=== PATIENT | male | born 1950 | race Caucasian/White ===

== ENCOUNTER 2017-09-30 17:06 | Inpatient (IN) | payer MEDICARE, BC ==
[2017-09-30 18:44] LABS: ADD MAN DIFF? NO
[2017-09-30 18:47] LABS: ABNORMAL IP MESSAGE 1; BASOPHILS % 0.3 % (0.0-2.0); EOSINOPHILS # 0.5 10^3/ul (0.0-0.5); LYMPHOCYTES # 2.3 10^3/ul (0.8-2.9); LYMPHOCYTES % 32.9 % (15.0-51.0); MEAN PLATELET VOLUME 10.6 fl (7.4-10.4); MONOCYTE # 0.6 10^3/ul (0.3-0.9); MONOCYTES % 8.4 % (0.0-11.0); NEUTROPHIL # 3.6 10^3/ul (1.6-7.5); NEUTROPHILS % 51.1 % (39.0-77.0); PLATELET COUNT 311 10^3/UL (140-415); POSITIVE DIFF @See below
[2017-09-30 18:47] LABS: WHITE BLOOD COUNT 7.1 10^3/ul (4.8-10.8)
[2017-09-30 19:11] LABS: INR 1.41; PROTIME 17.5 Sec (11.9-14.9); PT RATIO 1.4
[2017-09-30 19:12] LABS: PARTIAL THROMBOPLASTIN TIME 34.8 Sec (25.0-35.0)
[2017-09-30 19:14] LABS: ALANINE AMINOTRANSFERASE 35 IU/L (13-69); ALBUMIN 3.5 g/dl (3.3-4.9); ALBUMIN/GLOBULIN RATIO 1.09; ALKALINE PHOSPHATASE 53 IU/L (42-121); ANION GAP 15 (8-16); ASPARTATE AMINO TRANSFERASE 25 IU/L (15-46); BILIRUBIN,INDIRECT 0.6 mg/dl (0-1.1); BILIRUBIN,TOTAL 0.6 mg/dl (0.2-1.3); BLOOD UREA NITROGEN 56 mg/dl (7-20); CALCIUM 9.3 mg/dl (8.4-10.2); CARBON DIOXIDE 29 mmol/L (21-31); CHLORIDE 98 mmol/L (97-110); CREATININE 5.99 mg/dl (0.61-1.24); GLUCOSE 89 mg/dl (70-220); POTASSIUM 4.8 mmol/L (3.5-5.1); SODIUM 137 mmol/L (135-144); TOTAL PROTEIN 6.7 g/dl (6.1-8.1)
[2017-09-30] MEDS ORDERED: ACETAMINOPHEN 325 MG TAB PO (20:00)
[2017-09-30] MEDS ORDERED: ONDANSETRON 4 MG INJ IV (20:00)
[2017-09-30 20:15] LABS: HEMATOCRIT 22.2 % (42.0-52.0); HEMOGLOBIN 7.2 g/dl (14.0-18.0); MEAN CORPUSCULAR VOLUME 97.4 fl (82.0-101.0); RED BLOOD COUNT 2.28 10^6/ul (4.70-6.10)
[2017-09-30 20:16] LABS: MEAN CORPUSCULAR HEMOGLOBIN 31.6 pg (29.0-33.0); MEAN CORPUSCULAR HGB CONC 32.4 g/dl (32.0-37.0); RED CELL DISTRIBUTION WIDTH 16.8 % (11.5-14.5)
[2017-09-30] MEDS ORDERED: ONDANSETRON 4 MG TAB PO (21:30)
[2017-09-30] MEDS ORDERED: NACL 0.9% 3 ML SYG IV (21:30)
[2017-09-30] MEDS ORDERED: GLUCAGON 1 MG INJ IM (22:00)
[2017-09-30] MEDS ORDERED: GLUCOSE GEL 15 GRAM TUBE BUCCAL (22:00)
[2017-09-30] MEDS ORDERED: GLUCOSE GEL 15 GRAM TUBE PO ×2 (22:00)
[2017-09-30] MEDS ORDERED: DEXTROSE 50% 50 ML SYRINGE IV ×2 (22:00)
[2017-10-01] MEDS: ALBUTEROL/IPRATROPIUM (NEB) 3 ML AMP HHN ×3 (01:00→09:00)
[2017-10-01] MEDS: ACCU-CHEK XX (02:14)
[2017-10-01] MEDS: ZOLPIDEM 5 MG TAB PO (02:16)
[2017-10-01 02:36] LABS: ADD MAN DIFF? NO
[2017-10-01 03:16] LABS: ALANINE AMINOTRANSFERASE 40 IU/L (13-69); ALBUMIN 3.7 g/dl (3.3-4.9); ALBUMIN/GLOBULIN RATIO 1.27; ALKALINE PHOSPHATASE 54 IU/L (42-121); ANION GAP 14 (8-16); ASPARTATE AMINO TRANSFERASE 23 IU/L (15-46); BILIRUBIN,INDIRECT 0.3 mg/dl (0-1.1); BILIRUBIN,TOTAL 0.3 mg/dl (0.2-1.3); BLOOD UREA NITROGEN 55 mg/dl (7-20); CALCIUM 8.9 mg/dl (8.4-10.2); CARBON DIOXIDE 28 mmol/L (21-31); CHLORIDE 102 mmol/L (97-110); CREATININE 5.69 mg/dl (0.61-1.24); GLUCOSE 110 mg/dl (70-220); POTASSIUM 4.2 mmol/L (3.5-5.1); SODIUM 140 mmol/L (135-144); TOTAL PROTEIN 6.6 g/dl (6.1-8.1)
[2017-10-01 03:27] LABS: TROPONIN-I 0.035 ng/ml (0.00-0.12)
[2017-10-01] MEDS: ASPIRIN 81 MG TAB PO (08:35)
[2017-10-01] MEDS: FERROUS SULFATE (EC) 325 MG TAB PO (08:35)
[2017-10-01] MEDS: FOLIC ACID 1 MG TAB PO (08:35)
[2017-10-01] MEDS: SALMETEROL/FLUTICASONE 250/50 INHA INH ×2 (08:36→21:26)
[2017-10-01] MEDS: TIOTROPIUM 18 MCG CAPSULE INHA DEV INH (08:36)
[2017-10-01] MEDS: INSULIN ASPART [NOVOLOG] 3 ML PEN SC ×7 (08:37→21:40)
[2017-10-01] MEDS: INSULIN GLARGINE [LANtus] 3 ML PEN SC ×2 (08:38→21:45)
[2017-10-01] MEDS ORDERED: PIPER-TAZO 3.375 GM IV (PMX) 50 ML IVPB (09:00)
[2017-10-01] MEDS ORDERED: FENTAnyl 50 MCG/ML VIAL (09:16)
[2017-10-01] MEDS ORDERED: MIDAZOLAM 1 MG/ML 2 ML INJ (09:16)
[2017-10-01] MEDS ORDERED: LIDOCAINE 1% (MDV) 20 ML INJ (09:16)
[2017-10-01] MEDS ORDERED: IODIXANOL LOCM 100 ML BTL (09:16)
[2017-10-01 09:27] LABS: WHITE BLOOD COUNT 7.6 10^3/ul (4.8-10.8)
[2017-10-01 09:27] LABS: HEMATOCRIT 23.2 % (42.0-52.0); MEAN CORPUSCULAR HGB CONC 30.6 g/dl (32.0-37.0); MEAN CORPUSCULAR VOLUME 104.5 fl (82.0-101.0); RED BLOOD COUNT 2.22 10^6/ul (4.70-6.10); RED CELL DISTRIBUTION WIDTH 17.5 % (11.5-14.5)
[2017-10-01 09:28] LABS: BASOPHILS % 0.7 % (0.0-2.0); EOSINOPHILS % 6.9 % (0.0-7.0); LYMPHOCYTES # 2.5 10^3/ul (0.8-2.9); LYMPHOCYTES % 32.6 % (15.0-51.0); MEAN PLATELET VOLUME 10.9 fl (7.4-10.4); MONOCYTE # 0.6 10^3/ul (0.3-0.9); MONOCYTES % 8.2 % (0.0-11.0); NEUTROPHIL # 3.9 10^3/ul (1.6-7.5); NEUTROPHILS % 51.5 % (39.0-77.0); PLATELET COUNT 310 10^3/UL (140-440)
[2017-10-01 09:29] LABS: BASOPHIL # 0.1 10^3/ul (0.0-0.1); EOSINOPHILS # 0.5 10^3/ul (0.0-0.5); HEMOGLOBIN 7.1 g/dl (14.0-18.0)
[2017-10-01] MEDS ORDERED: IODIXANOL LOCM 50 ML BTL (09:56)
[2017-10-01 12:55] LABS: TROPONIN-I 0.056 ng/ml (0.00-0.12)
[2017-10-01] MEDS: HEPARIN 1000 UNITS/ML 10 ML INJ CATHETER (13:09)
[2017-10-01] MEDS: PIPER-TAZO 2.25 GM (PMX) 50 ML IVPB ×2 (15:23→21:23)
[2017-10-01] MEDS: EPOETIN 3000 UNITS/1 ML INJ (ESRD) SC (17:23)
[2017-10-01] MEDS: ATORVASTATIN 80 MG TAB PO (21:26)
[2017-10-01] MEDS: AMLODIPINE 5 MG TAB PO (21:27)
[2017-10-01] MEDS: ACETAMINOPHEN 325 MG TAB PO (21:48)
[2017-10-02] MEDS: PIPER-TAZO 2.25 GM (PMX) 50 ML IVPB ×2 (00:09→05:44)
[2017-10-02 02:19] LABS: ANION GAP 14 (8-16); BLOOD UREA NITROGEN 35 mg/dl (7-20); CALCIUM 8.8 mg/dl (8.4-10.2); CARBON DIOXIDE 29 mmol/L (21-31); CHLORIDE 100 mmol/L (97-110); CREATININE 3.87 mg/dl (0.61-1.24); GLUCOSE 117 mg/dl (70-220); MAGNESIUM 1.9 mg/dl (1.7-2.5); POTASSIUM 4.5 mmol/L (3.5-5.1); SODIUM 138 mmol/L (135-144)
[2017-10-02] MEDS: ACCU-CHEK XX (02:51)
[2017-10-02] MEDS: MAGNESIUM SULFATE 1 GM/D5W 100 ML IVPB (03:57)
[2017-10-02 07:28] LABS: ADD MAN DIFF? NO
[2017-10-02 07:50] LABS: ALANINE AMINOTRANSFERASE 27 IU/L (13-69); ALBUMIN 3.1 g/dl (3.3-4.9); ALKALINE PHOSPHATASE 45 IU/L (42-121); ANION GAP 15 (8-16); ASPARTATE AMINO TRANSFERASE 24 IU/L (15-46); BILIRUBIN,INDIRECT 0.5 mg/dl (0-1.1); BILIRUBIN,TOTAL 0.5 mg/dl (0.2-1.3); BLOOD UREA NITROGEN 33 mg/dl (7-20); CALCIUM 9.1 mg/dl (8.4-10.2); CARBON DIOXIDE 28 mmol/L (21-31); CHLORIDE 102 mmol/L (97-110); GLUCOSE 68 mg/dl (70-220); SODIUM 141 mmol/L (135-144); TOTAL PROTEIN 6.2 g/dl (6.1-8.1)
[2017-10-02] MEDS: INSULIN ASPART [NOVOLOG] 3 ML PEN SC ×8 (07:55→21:26)
[2017-10-02 08:13] LABS: MAGNESIUM 2.2 mg/dl (1.7-2.5)
[2017-10-02 08:13] LABS: PHOSPHORUS 4.7 mg/dl (2.5-4.9)
[2017-10-02] MEDS: ASPIRIN 81 MG TAB PO (08:47)
[2017-10-02] MEDS: EZETIMIBE 10 MG TAB PO (08:47)
[2017-10-02] MEDS: LINAGLIPTIN 5 MG TABLET PO (08:47)
[2017-10-02] MEDS: AMLODIPINE 5 MG TAB PO ×2 (08:47→21:13)
[2017-10-02] MEDS: FOLIC ACID 1 MG TAB PO (08:47)
[2017-10-02] MEDS: FERROUS SULFATE (EC) 325 MG TAB PO (08:47)
[2017-10-02] MEDS: TIOTROPIUM 18 MCG CAPSULE INHA DEV INH (08:47)
[2017-10-02] MEDS: SALMETEROL/FLUTICASONE 250/50 INHA INH ×2 (08:47→21:13)
[2017-10-02] MEDS: INSULIN GLARGINE [LANtus] 3 ML PEN SC ×2 (08:52→21:26)
[2017-10-02 09:00] LABS: ADD MAN DIFF? NO
[2017-10-02 09:34] LABS: LACTATE DEHYDROGENASE 596 IU/L (313-618)
[2017-10-02 09:39] LABS: BASOPHIL # 0.1 10^3/ul (0.0-0.1); BASOPHILS % 0.9 % (0.0-2.0); EOSINOPHILS # 0.5 10^3/ul (0.0-0.5); EOSINOPHILS % 6.5 % (0.0-7.0); HEMATOCRIT 23.3 % (42.0-52.0); LYMPHOCYTES # 1.7 10^3/ul (0.8-2.9); LYMPHOCYTES % 24.2 % (15.0-51.0); MEAN CORPUSCULAR HEMOGLOBIN 31.8 pg (29.0-33.0); MEAN CORPUSCULAR HGB CONC 32.6 g/dl (32.0-37.0); MEAN CORPUSCULAR VOLUME 97.5 fl (82.0-101.0); MEAN PLATELET VOLUME 11.6 fl (7.4-10.4); MONOCYTE # 0.7 10^3/ul (0.3-0.9); MONOCYTES % 10.4 % (0.0-11.0); NEUTROPHILS % 57.3 % (39.0-77.0); NUCLEATED RED BLOOD CELLS% 0.6 /100WBC (0.0-0.0); RED BLOOD COUNT 2.39 10^6/ul (4.70-6.10); RED CELL DISTRIBUTION WIDTH 16.4 % (11.5-14.5)
[2017-10-02 09:47] LABS: HEMOGLOBIN 7.6 g/dl (14.0-18.0); PLATELET COUNT 309 10^3/UL (140-415)
[2017-10-02 12:20] LABS: ABNORMAL IP MESSAGE 1; BASOPHILS % 0.6 % (0.0-2.0); EOSINOPHILS # 0.4 10^3/ul (0.0-0.5); EOSINOPHILS % 6.5 % (0.0-7.0); HEMATOCRIT 25.5 % (42.0-52.0); LYMPHOCYTES # 1.4 10^3/ul (0.8-2.9); LYMPHOCYTES % 21.6 % (15.0-51.0); MEAN CORPUSCULAR HEMOGLOBIN 31.7 pg (29.0-33.0); MEAN CORPUSCULAR HGB CONC 32.5 g/dl (32.0-37.0); MEAN CORPUSCULAR VOLUME 97.3 fl (82.0-101.0); MEAN PLATELET VOLUME 11.9 fl (7.4-10.4); MONOCYTE # 0.5 10^3/ul (0.3-0.9); MONOCYTES % 7.2 % (0.0-11.0); NEUTROPHIL # 4.2 10^3/ul (1.6-7.5); NEUTROPHILS % 63.6 % (39.0-77.0); NUCLEATED RED BLOOD CELLS # 0.1 10^3/ul (0.0-0.0); NUCLEATED RED BLOOD CELLS% 1.1 /100WBC (0.0-0.0); POSITIVE DIFF @See below; RED BLOOD COUNT 2.62 10^6/ul (4.70-6.10); RED CELL DISTRIBUTION WIDTH 16.4 % (11.5-14.5); RETICULOCYTE RBC 2.62
[2017-10-02 12:22] LABS: WHITE BLOOD COUNT 5.3 10^3/ul (4.8-10.8)
[2017-10-02 12:22] LABS: HEMOGLOBIN 8.3 g/dl (14.0-18.0); PLATELET COUNT 314 10^3/UL (140-415)
[2017-10-02 14:06] LABS: RETICULOCYTE COUNT # 0.027 X10^6 (0.020-0.110); RETICULOCYTE COUNT % 5.7 % (0.5-1.5)
[2017-10-02] MEDS: PANTOPRAZOLE (EC) 40 MG TAB PO (17:24)
[2017-10-02] MEDS: ATORVASTATIN 80 MG TAB PO (21:13)
[2017-10-03] MEDS: ZOLPIDEM 5 MG TAB PO (00:54)
[2017-10-03] MEDS: ACCU-CHEK XX (01:52)
[2017-10-03] MEDS: PANTOPRAZOLE (EC) 40 MG TAB PO (05:36)
[2017-10-03 07:05] LABS: ADD MAN DIFF? NO
[2017-10-03 07:29] LABS: MAGNESIUM 1.9 mg/dl (1.7-2.5)
[2017-10-03 07:30] LABS: ANION GAP 16 (8-16); BLOOD UREA NITROGEN 26 mg/dl (7-20); CALCIUM 9.1 mg/dl (8.4-10.2); CARBON DIOXIDE 29 mmol/L (21-31); CHLORIDE 100 mmol/L (97-110); GLUCOSE 113 mg/dl (70-220); POTASSIUM 4.1 mmol/L (3.5-5.1); SODIUM 141 mmol/L (135-144)
[2017-10-03] MEDS: INSULIN ASPART [NOVOLOG] 3 ML PEN SC ×4 (07:55→13:09)
[2017-10-03 08:15] LABS: BASOPHILS % 0.6 % (0.0-2.0); EOSINOPHILS # 0.4 10^3/ul (0.0-0.5); EOSINOPHILS % 5.4 % (0.0-7.0); HEMATOCRIT 25.2 % (42.0-52.0); LYMPHOCYTES # 1.7 10^3/ul (0.8-2.9); LYMPHOCYTES % 25.4 % (15.0-51.0); MEAN CORPUSCULAR HEMOGLOBIN 31.6 pg (29.0-33.0); MEAN CORPUSCULAR HGB CONC 32.9 g/dl (32.0-37.0); MEAN CORPUSCULAR VOLUME 95.8 fl (82.0-101.0); MEAN PLATELET VOLUME 11.9 fl (7.4-10.4); MONOCYTE # 0.7 10^3/ul (0.3-0.9); MONOCYTES % 10.8 % (0.0-11.0); NEUTROPHIL # 3.9 10^3/ul (1.6-7.5); NEUTROPHILS % 57.2 % (39.0-77.0); NUCLEATED RED BLOOD CELLS% 0.6 /100WBC (0.0-0.0); RED BLOOD COUNT 2.63 10^6/ul (4.70-6.10); RED CELL DISTRIBUTION WIDTH 15.8 % (11.5-14.5)
[2017-10-03 08:23] LABS: WHITE BLOOD COUNT 6.4 10^3/ul (4.8-10.8)
[2017-10-03 08:23] LABS: PLATELET COUNT 304 10^3/UL (140-415)
[2017-10-03 08:24] LABS: HEMOGLOBIN 8.3 g/dl (14.0-18.0)
[2017-10-03] MEDS: TIOTROPIUM 18 MCG CAPSULE INHA DEV INH (08:39)
[2017-10-03] MEDS: ASPIRIN 81 MG TAB PO (08:40)
[2017-10-03] MEDS: FOLIC ACID 1 MG TAB PO (08:40)
[2017-10-03] MEDS: LINAGLIPTIN 5 MG TABLET PO (08:40)
[2017-10-03] MEDS: EZETIMIBE 10 MG TAB PO (08:40)
[2017-10-03] MEDS: SALMETEROL/FLUTICASONE 250/50 INHA INH (08:40)
[2017-10-03] MEDS: FERROUS SULFATE (EC) 325 MG TAB PO (08:40)
[2017-10-03] MEDS: AMLODIPINE 5 MG TAB PO (08:44)
[2017-10-03] MEDS: INSULIN GLARGINE [LANtus] 3 ML PEN SC (08:50)
[2017-10-03 15:21] LABS: HAPTOGLOBIN 149 mg/dL (43-212)
[2017-10-06] MEDS ORDERED: ERGOCALCIFEROL 50,000 UNIT CAP PO (09:00)
== END 2017-10-03 13:37 | disposition home or self-care (01) | DRG 252 ==
LOC: TEL 19:58 → E/R 17:06
PROC: 02PY33Z Removal of Infusion Device from Great Vessel, Percutaneous Approach (ICD-10-PCS; principal; 2017-10-01 09:20)
PROC: 05793ZZ Dilation of Right Brachial Vein, Percutaneous Approach (ICD-10-PCS; 2017-10-01 09:20)
PROC: 057D3ZZ Dilation of Right Cephalic Vein, Percutaneous Approach (ICD-10-PCS; 2017-10-01 09:20)
PROC: 057M3ZZ Dilation of Right Internal Jugular Vein, Percutaneous Approach (ICD-10-PCS; 2017-10-01 09:20)
PROC: 05753ZZ Dilation of Right Subclavian Vein, Percutaneous Approach (ICD-10-PCS; 2017-10-01 09:20)
PROC: 027V3ZZ Dilation of Superior Vena Cava, Percutaneous Approach (ICD-10-PCS; 2017-10-01 09:20)
PROC: 02HV33Z Insertion of Infusion Device into Superior Vena Cava, Percutaneous Approach (ICD-10-PCS; 2017-10-01 09:20)
PROC: B518YZA Fluoroscopy of Superior Vena Cava using Other Contrast, Guidance (ICD-10-PCS; 2017-10-01 09:20)
PROC: 5A1D70Z Performance of Urinary Filtration, Intermittent, Less than 6 Hours Per Day (ICD-10-PCS; 2017-10-01 09:20)
PROC: 5A1D70Z Performance of Urinary Filtration, Intermittent, Less than 6 Hours Per Day (ICD-10-PCS; 2017-10-01 09:20)
DX: T82.868A Thrombosis due to vascular prosthetic devices, implants and grafts, initial encounter (principal); N18.6 End stage renal disease; N17.9 Acute kidney failure, unspecified; I50.33 Acute on chronic diastolic (congestive) heart failure; I44.1 Atrioventricular block, second degree; E11.22 Type 2 diabetes mellitus with diabetic chronic kidney disease; D59.1 Other autoimmune hemolytic anemias; I87.1 Compression of vein; I13.2 Hypertensive heart and chronic kidney disease with heart failure and with stage 5 chronic kidney disease, or end stage renal disease; I82.532 Chronic embolism and thrombosis of left popliteal vein; R00.1 Bradycardia, unspecified; E87.70 Fluid overload, unspecified; E78.5 Hyperlipidemia, unspecified; I27.20 Pulmonary hypertension, unspecified; I25.10 Atherosclerotic heart disease of native coronary artery without angina pectoris; J44.9 Chronic obstructive pulmonary disease, unspecified; Z95.5 Presence of coronary angioplasty implant and graft; Z99.2 Dependence on renal dialysis; Z79.4 Long term (current) use of insulin; Z79.82 Long term (current) use of aspirin
CPT/HCPCS: 37248; 37249; 71010; 71250; 80048; 80053; 82962; 83010; 83615; 83735; 84100; 84443; 84484; 85025; 85045; 85610; 85730; 86157; 86850; 86870; 86900; 86901; 87081; 90935; 93005; 93880; 99285-25; G0378

== ENCOUNTER 2017-11-11 09:27 | Day surgery (SDC) | payer MEDICARE, BC ==
[2017-11-11 10:43] LABS: POTASSIUM 5.2 mmol/L (3.5-5.1)
[2017-11-11] MEDS ORDERED: ROPIVACAINE 0.5 % 30 ML VIAL (10:47)
[2017-11-11] MEDS ORDERED: MIDAZOLAM 1 MG/ML 2 ML INJ (11:05)
[2017-11-11] MEDS ORDERED: METOCLOPRAMIDE 10 MG INJ IV (12:00)
[2017-11-11] MEDS ORDERED: MEPERIDINE 25 MG INJ IV (12:00)
[2017-11-11] MEDS ORDERED: DIPHENHYDRAMINE 50 MG INJ IV (12:00)
[2017-11-11] MEDS ORDERED: FENTAnyl 50 MCG/ML VIAL IV (12:00)
[2017-11-11] MEDS ORDERED: HYDROmorphONE (0.2 MG/ML) 10ML SYG IV (12:00)
[2017-11-11] MEDS ORDERED: LABETALOL HCL 20MG INJ IV (12:00)
[2017-11-11] MEDS ORDERED: ONDANSETRON 4 MG INJ IV (12:00)
[2017-11-11] MEDS: HEPARIN 1000 UNITS/ML 10 ML INJ (12:44)
[2017-11-11] MEDS: THROMBIN 5000 UNIT VIAL (12:44)
[2017-11-11] MEDS: LIDOCAINE 1% (MPF) 30 ML INJ (12:44)
[2017-11-11] MEDS: GELATIN SIZE 100 SPONGE (12:44)
== END 2017-11-11 13:55 | disposition home or self-care (01) ==
LOC: SDS 09:27
DX: I12.0 Hypertensive chronic kidney disease with stage 5 chronic kidney disease or end stage renal disease (principal); N18.6 End stage renal disease; Z99.2 Dependence on renal dialysis; I25.10 Atherosclerotic heart disease of native coronary artery without angina pectoris; Z95.5 Presence of coronary angioplasty implant and graft; E78.00 Pure hypercholesterolemia, unspecified; Z82.49 Family history of ischemic heart disease and other diseases of the circulatory system; E78.5 Hyperlipidemia, unspecified; Z79.4 Long term (current) use of insulin
CPT/HCPCS: 36821; 84132

== ENCOUNTER 2018-02-27 05:43 | Day surgery (SDC) | payer MEDICARE, BC ==
[2018-02-27 06:45] LABS: ADD MAN DIFF? NO
[2018-02-27 06:53] LABS: WHITE BLOOD COUNT 7.6 10^3/ul (4.8-10.8)
[2018-02-27 06:53] LABS: BASOPHIL # 0.1 10^3/ul (0.0-0.1); BASOPHILS % 1.3 % (0.0-2.0); EOSINOPHILS # 0.4 10^3/ul (0.0-0.5); EOSINOPHILS % 5.7 % (0.0-7.0); HEMOGLOBIN 11.4 g/dl (14.0-18.0); LYMPHOCYTES % 26.6 % (15.0-51.0); MEAN CORPUSCULAR HEMOGLOBIN 29.5 pg (29.0-33.0); MEAN CORPUSCULAR HGB CONC 32.6 g/dl (32.0-37.0); MEAN CORPUSCULAR VOLUME 90.7 fl (82.0-101.0); MEAN PLATELET VOLUME 11.9 fl (7.4-10.4); MONOCYTE # 0.8 10^3/ul (0.3-0.9); MONOCYTES % 10.3 % (0.0-11.0); NEUTROPHIL # 4.2 10^3/ul (1.6-7.5); NEUTROPHILS % 55.7 % (39.0-77.0); PLATELET COUNT 207 10^3/UL (140-415); RED BLOOD COUNT 3.86 10^6/ul (4.70-6.10); RED CELL DISTRIBUTION WIDTH 15.9 % (11.5-14.5)
[2018-02-27 07:14] LABS: INR 1.11; PROTIME 14.5 Sec (11.9-14.9); PT RATIO 1.1
[2018-02-27 07:15] LABS: PARTIAL THROMBOPLASTIN TIME 32.3 Sec (25.0-35.0)
[2018-02-27 07:24] LABS: ANION GAP 22 (8-16); CARBON DIOXIDE 22 mmol/L (21-31); CHLORIDE 102 mmol/L (97-110); GLUCOSE 239 mg/dl (70-220)
[2018-02-27 07:38] LABS: SODIUM 141 mmol/L (135-144)
[2018-02-27 07:41] LABS: BLOOD UREA NITROGEN 48 mg/dl (7-20); CALCIUM 8.9 mg/dl (8.4-10.2); CREATININE 6.99 mg/dl (0.61-1.24); POTASSIUM 5.2 mmol/L (3.5-5.1)
== END 2018-02-27 09:41 | disposition home or self-care (01) ==
LOC: SDS 05:43
DX: I12.0 Hypertensive chronic kidney disease with stage 5 chronic kidney disease or end stage renal disease (principal); N18.6 End stage renal disease; E11.9 Type 2 diabetes mellitus without complications; E78.00 Pure hypercholesterolemia, unspecified
CPT/HCPCS: 36902; 36909; 71045; 80048; 82962; 85025; 85610; 85730; 93005

== ENCOUNTER 2018-03-17 09:07 | Day surgery (SDC) | payer MEDICARE, BC ==
[2018-03-17 10:23] LABS: ADD MAN DIFF? NO
[2018-03-17 10:27] LABS: WHITE BLOOD COUNT 9.1 10^3/ul (4.8-10.8)
[2018-03-17 10:27] LABS: BASOPHIL # 0.1 10^3/ul (0.0-0.1); EOSINOPHILS # 0.4 10^3/ul (0.0-0.5); EOSINOPHILS % 4.1 % (0.0-7.0); LYMPHOCYTES # 2.8 10^3/ul (0.8-2.9); LYMPHOCYTES % 30.3 % (15.0-51.0); MEAN CORPUSCULAR HEMOGLOBIN 28.8 pg (29.0-33.0); MEAN CORPUSCULAR HGB CONC 31.6 g/dl (32.0-37.0); MEAN CORPUSCULAR VOLUME 91.1 fl (82.0-101.0); MEAN PLATELET VOLUME 11.7 fl (7.4-10.4); MONOCYTES % 10.5 % (0.0-11.0); NEUTROPHIL # 4.9 10^3/ul (1.6-7.5); NEUTROPHILS % 53.8 % (39.0-77.0); PLATELET COUNT 243 10^3/UL (140-415); RED BLOOD COUNT 4.17 10^6/ul (4.70-6.10); RED CELL DISTRIBUTION WIDTH 15.8 % (11.5-14.5)
[2018-03-17] MEDS ORDERED: FENTAnyl 50 MCG/ML VIAL (10:42)
[2018-03-17] MEDS ORDERED: LIDOCAINE 1% (MDV) 20 ML INJ (10:42)
[2018-03-17] MEDS ORDERED: HEPARIN 1000 UNITS/NS (A-LINE) 1,000 ML (10:42)
[2018-03-17] MEDS ORDERED: MIDAZOLAM 1 MG/ML 2 ML INJ (10:42)
[2018-03-17] MEDS ORDERED: IODIXANOL LOCM 50 ML BTL (10:43)
[2018-03-17 10:45] LABS: ANION GAP 18 (8-16); CARBON DIOXIDE 30 mmol/L (21-31); CHLORIDE 97 mmol/L (97-110); GLUCOSE 77 mg/dl (70-220)
[2018-03-17 10:47] LABS: BLOOD UREA NITROGEN 46 mg/dl (7-20); CALCIUM 9.2 mg/dl (8.4-10.2); CREATININE 7.86 mg/dl (0.61-1.24); INR 1.15; PROTIME 14.9 Sec (11.9-14.9); PT RATIO 1.2; SODIUM 138 mmol/L (135-144)
[2018-03-17 10:48] LABS: PARTIAL THROMBOPLASTIN TIME 29.4 Sec (25.0-35.0)
[2018-03-17 10:53] LABS: POTASSIUM 7.3 mmol/L (3.5-5.1)
== END 2018-03-17 11:20 | disposition home or self-care (01) ==
LOC: SDS 09:07
DX: I12.0 Hypertensive chronic kidney disease with stage 5 chronic kidney disease or end stage renal disease (principal); N18.6 End stage renal disease; Z53.9 Procedure and treatment not carried out, unspecified reason; E11.9 Type 2 diabetes mellitus without complications
CPT/HCPCS: 80048; 82962; 85025; 85610; 85730

== ENCOUNTER 2018-03-17 11:22 | Inpatient (IN) | payer MEDICARE, BC ==
[2018-03-17 11:47] LABS: ADD MAN DIFF? NO
[2018-03-17] MEDS: NA BICARBONATE 8.4% 50 ML SYG IV (11:48)
[2018-03-17 11:50] LABS: BASOPHIL # 0.1 10^3/ul (0.0-0.1); BASOPHILS % 1.1 % (0.0-2.0); EOSINOPHILS # 0.3 10^3/ul (0.0-0.5); EOSINOPHILS % 3.5 % (0.0-7.0); HEMATOCRIT 37.9 % (42.0-52.0); HEMOGLOBIN 11.9 g/dl (14.0-18.0); LYMPHOCYTES # 2.6 10^3/ul (0.8-2.9); LYMPHOCYTES % 30.1 % (15.0-51.0); MEAN CORPUSCULAR HEMOGLOBIN 28.7 pg (29.0-33.0); MEAN CORPUSCULAR HGB CONC 31.4 g/dl (32.0-37.0); MEAN CORPUSCULAR VOLUME 91.5 fl (82.0-101.0); MEAN PLATELET VOLUME 11.1 fl (7.4-10.4); MONOCYTE # 0.9 10^3/ul (0.3-0.9); MONOCYTES % 10.3 % (0.0-11.0); NEUTROPHIL # 4.7 10^3/ul (1.6-7.5); NEUTROPHILS % 54.8 % (39.0-77.0); PLATELET COUNT 249 10^3/UL (140-415); RED BLOOD COUNT 4.14 10^6/ul (4.70-6.10); RED CELL DISTRIBUTION WIDTH 15.5 % (11.5-14.5)
[2018-03-17 11:50] LABS: WHITE BLOOD COUNT 8.5 10^3/ul (4.8-10.8)
[2018-03-17] MEDS: CALCIUM GLUCONATE 10% 1 GM in DEXTROSE 5% 100 ML IVPB (12:12)
[2018-03-17 12:20] LABS: INR 1.13; PARTIAL THROMBOPLASTIN TIME 29.4 Sec (25.0-35.0); PROTIME 14.7 Sec (11.9-14.9); PT RATIO 1.1
[2018-03-17 12:30] LABS: ANION GAP 17 (8-16); BLOOD UREA NITROGEN 45 mg/dl (7-20); CALCIUM 9.2 mg/dl (8.4-10.2); CARBON DIOXIDE 29 mmol/L (21-31); CHLORIDE 98 mmol/L (97-110); CREATININE 8.01 mg/dl (0.61-1.24); GLUCOSE 71 mg/dl (70-220); SODIUM 137 mmol/L (135-144)
[2018-03-17 12:33] LABS: POTASSIUM 6.9 mmol/L (3.5-5.1)
[2018-03-17] MEDS: CA CHLORIDE 10% 10 ML SYRINGE IV (12:56)
[2018-03-17] MEDS ORDERED: ONDANSETRON 4 MG INJ IV (13:00)
[2018-03-17] MEDS ORDERED: ACETAMINOPHEN 325 MG TAB PO (13:00)
[2018-03-17] MEDS ORDERED: NACL 0.9% 3 ML SYG IV (14:30)
[2018-03-17] MEDS ORDERED: DEXTROSE 50% 50 ML SYRINGE IV ×2 (17:30)
[2018-03-17] MEDS ORDERED: GLUCOSE GEL 15 GRAM TUBE PO ×2 (17:30)
[2018-03-17] MEDS ORDERED: GLUCAGON 1 MG INJ IM (17:30)
[2018-03-17] MEDS ORDERED: GLUCOSE GEL 15 GRAM TUBE BUCCAL (17:30)
[2018-03-17] MEDS: INSULIN ASPART [NOVOLOG] 3 ML PEN SC ×3 (17:40→21:00)
[2018-03-17] MEDS: ACCU-CHEK XX (21:28)
[2018-03-17] MEDS: INSULIN GLARGINE [LANtus] 3 ML PEN SC (21:31)
[2018-03-18] MEDS: HEPARIN 1000 UNITS/ML 10 ML INJ CATHETER (05:40)
[2018-03-18] MEDS: INSULIN ASPART [NOVOLOG] 3 ML PEN SC ×7 (08:00→20:48)
[2018-03-18] MEDS: ENOXAPARIN 30 MG/0.3 ML SYG SC (08:20)
[2018-03-18] MEDS: MULTIVIT/CA CARB/B CMPLX/FA TAB PO (08:20)
[2018-03-18] MEDS: AMLODIPINE 5 MG TAB PO (08:21)
[2018-03-18 09:31] LABS: ADD MAN DIFF? NO
[2018-03-18 09:35] LABS: WHITE BLOOD COUNT 7.5 10^3/ul (4.8-10.8)
[2018-03-18 09:35] LABS: BASOPHIL # 0.1 10^3/ul (0.0-0.1); BASOPHILS % 1.1 % (0.0-2.0); EOSINOPHILS # 0.3 10^3/ul (0.0-0.5); EOSINOPHILS % 3.6 % (0.0-7.0); HEMATOCRIT 38.1 % (42.0-52.0); HEMOGLOBIN 12.1 g/dl (14.0-18.0); LYMPHOCYTES # 1.7 10^3/ul (0.8-2.9); LYMPHOCYTES % 22.6 % (15.0-51.0); MEAN CORPUSCULAR HEMOGLOBIN 28.8 pg (29.0-33.0); MEAN CORPUSCULAR HGB CONC 31.8 g/dl (32.0-37.0); MEAN CORPUSCULAR VOLUME 90.7 fl (82.0-101.0); MEAN PLATELET VOLUME 11.3 fl (7.4-10.4); MONOCYTE # 0.7 10^3/ul (0.3-0.9); MONOCYTES % 9.3 % (0.0-11.0); NEUTROPHIL # 4.7 10^3/ul (1.6-7.5); NEUTROPHILS % 63.1 % (39.0-77.0); PLATELET COUNT 235 10^3/UL (140-415); RED CELL DISTRIBUTION WIDTH 15.4 % (11.5-14.5)
[2018-03-18 09:46] LABS: HEMOGLOBIN A1C 7.3 % (0-5.9)
[2018-03-18 09:51] LABS: ALANINE AMINOTRANSFERASE 15 IU/L (13-69); ALBUMIN 4.4 g/dl (3.3-4.9); ALBUMIN/GLOBULIN RATIO 1.18; ALKALINE PHOSPHATASE 56 IU/L (42-121); ANION GAP 16 (8-16); ASPARTATE AMINO TRANSFERASE 14 IU/L (15-46); BILIRUBIN,INDIRECT 0.8 mg/dl (0-1.1); BILIRUBIN,TOTAL 0.8 mg/dl (0.2-1.3); BLOOD UREA NITROGEN 25 mg/dl (7-20); CALCIUM 9.1 mg/dl (8.4-10.2); CARBON DIOXIDE 30 mmol/L (21-31); CHLORIDE 97 mmol/L (97-110); CREATININE 5.54 mg/dl (0.61-1.24); GLUCOSE 145 mg/dl (70-220); POTASSIUM 5.8 mmol/L (3.5-5.1); SODIUM 137 mmol/L (135-144); TOTAL PROTEIN 8.1 g/dl (6.1-8.1)
[2018-03-18] MEDS: HYDROCODONE/APAP (5/325) TAB PO (15:46)
[2018-03-18] MEDS: INSULIN GLARGINE [LANtus] 3 ML PEN SC (20:47)
[2018-03-19] MEDS: ACCU-CHEK XX (02:16)
[2018-03-19] MEDS: INSULIN ASPART [NOVOLOG] 3 ML PEN SC ×8 (08:00→17:35)
[2018-03-19] MEDS: ENOXAPARIN 30 MG/0.3 ML SYG SC (09:00)
[2018-03-19] MEDS: MULTIVIT/CA CARB/B CMPLX/FA TAB PO (09:02)
[2018-03-19] MEDS: AMLODIPINE 5 MG TAB PO (09:03)
[2018-03-19] MEDS: HYDROCODONE/APAP (5/325) TAB PO ×2 (09:03→17:31)
[2018-03-19] MEDS ORDERED: MIDAZOLAM 1 MG/ML 2 ML INJ (11:53)
[2018-03-19] MEDS ORDERED: LIDOCAINE 1% (MDV) 20 ML INJ (11:53)
[2018-03-19] MEDS ORDERED: HEPARIN 1000 UNITS/ML 10 ML INJ (11:53)
[2018-03-19] MEDS ORDERED: FENTAnyl 50 MCG/ML VIAL (11:53)
[2018-03-19] MEDS ORDERED: HEPARIN 1000 UNITS/NS (A-LINE) 1,000 ML (11:53)
[2018-03-19] MEDS ORDERED: SOD CHLORIDE 0.9% 500 ML (11:54)
[2018-03-19 12:43] LABS: HEPATITIS B SURFACE ANTIGEN NEGATIVE (NEGATIVE)
== END 2018-03-19 19:32 | disposition home or self-care (01) | DRG 981 ==
LOC: E/R 11:22 → MS4 12:32
PROC: 05733ZZ Dilation of Right Innominate Vein, Percutaneous Approach (ICD-10-PCS; principal; 2018-03-19 11:41)
PROC: 057M3ZZ Dilation of Right Internal Jugular Vein, Percutaneous Approach (ICD-10-PCS; 2018-03-19 11:41)
PROC: 02PY33Z Removal of Infusion Device from Great Vessel, Percutaneous Approach (ICD-10-PCS; 2018-03-19 11:41)
PROC: 5A1D70Z Performance of Urinary Filtration, Intermittent, Less than 6 Hours Per Day (ICD-10-PCS; 2018-03-19 11:41)
DX: E87.5 Hyperkalemia (principal); N18.6 End stage renal disease; I12.0 Hypertensive chronic kidney disease with stage 5 chronic kidney disease or end stage renal disease; T82.858A Stenosis of other vascular prosthetic devices, implants and grafts, initial encounter; I87.1 Compression of vein; E11.22 Type 2 diabetes mellitus with diabetic chronic kidney disease; Z99.2 Dependence on renal dialysis; Z79.4 Long term (current) use of insulin; I25.10 Atherosclerotic heart disease of native coronary artery without angina pectoris; E78.00 Pure hypercholesterolemia, unspecified; Z87.891 Personal history of nicotine dependence; Y83.2 Surgical operation with anastomosis, bypass or graft as the cause of abnormal reaction of the patient, or of later complication, without mention of misadventure at the time of the procedure
CPT/HCPCS: 37248; 37249; 71045; 75827; 80048; 80053; 82962; 83036; 85025; 85610; 85730; 87340; 90935; 93005; 96374; 96375; 99285-25

== ENCOUNTER 2019-01-07 13:14 | Inpatient (IN) | payer MEDICARE, BC ==
[2019-01-07 16:10] LABS: ADD MAN DIFF? NO
[2019-01-07 16:14] LABS: WHITE BLOOD COUNT 8.9 10^3/ul (4.8-10.8)
[2019-01-07 16:15] LABS: BASOPHIL # 0.1 10^3/ul (0.0-0.1); BASOPHILS % 0.6 % (0.0-2.0); EOSINOPHILS # 0.2 10^3/ul (0.0-0.5); HEMATOCRIT 38.4 % (42.0-52.0); HEMOGLOBIN 12.2 g/dl (14.0-18.0); LYMPHOCYTES # 2.1 10^3/ul (0.8-2.9); LYMPHOCYTES % 23.3 % (15.0-51.0); MEAN CORPUSCULAR HEMOGLOBIN 29.4 pg (29.0-33.0); MEAN CORPUSCULAR HGB CONC 31.8 g/dl (32.0-37.0); MEAN CORPUSCULAR VOLUME 92.5 fl (82.0-101.0); MEAN PLATELET VOLUME 11.6 fl (7.4-10.4); MONOCYTES % 11.2 % (0.0-11.0); NEUTROPHIL # 5.6 10^3/ul (1.6-7.5); NEUTROPHILS % 62.6 % (39.0-77.0); PLATELET COUNT 190 10^3/UL (140-415); RED BLOOD COUNT 4.15 10^6/ul (4.70-6.10); RED CELL DISTRIBUTION WIDTH 14.4 % (11.5-14.5)
[2019-01-07 16:32] LABS: ALBUMIN 4.7 g/dl (3.3-4.9); ALKALINE PHOSPHATASE 58 IU/L (42-121); ANION GAP 19 (5-13); ASPARTATE AMINO TRANSFERASE 13 IU/L (15-46); BILIRUBIN,INDIRECT 0.2 mg/dl (0-1.1); BILIRUBIN,TOTAL 0.2 mg/dl (0.2-1.3); BLOOD UREA NITROGEN 76 mg/dl (7-20); CALCIUM 9.2 mg/dl (8.4-10.2); CARBON DIOXIDE 28 mmol/L (21-31); CHLORIDE 89 mmol/L (97-110); Estimated GFR 5 mL/min (>60); GLUCOSE 229 mg/dl (70-220); SODIUM 136 mmol/L (135-144); TOTAL PROTEIN 9.4 g/dl (6.1-8.1)
[2019-01-07 16:34] LABS: INR 1.09; PROTIME 14.2 Sec (11.9-14.9); PT RATIO 1.1
[2019-01-07 16:35] LABS: ALANINE AMINOTRANSFERASE < 6 IU/L (13-69); PARTIAL THROMBOPLASTIN TIME 34.4 Sec (23.0-35.0)
[2019-01-07 16:43] LABS: TROPONIN-I < 0.012 ng/ml (0.000-0.120)
[2019-01-07] MEDS: CEFEPIME 2GM/50 ML (PMX) 50 ML IVPB (17:15)
[2019-01-07] MEDS: ONDANSETRON 4 MG INJ IV (17:15)
[2019-01-07] MEDS: morphine 4 MG/ML VIAL IV (17:15)
[2019-01-07] MEDS: VANCOMYCIN 1 GM (PMX) 250 ML IVPB (17:15)
[2019-01-07] MEDS ORDERED: ONDANSETRON 4 MG INJ IV (17:30)
[2019-01-07] MEDS ORDERED: ACETAMINOPHEN 325 MG TAB PO (17:30)
[2019-01-07] MEDS: CA CHLORIDE 10% 10 ML SYRINGE IV (17:42)
[2019-01-07] MEDS: INSULIN ASPART [NOVOLOG] 3 ML PEN SC ×3 (18:00→21:00)
[2019-01-07] MEDS: NA BICARBONATE 8.4% 50 ML SYG IV (18:11)
[2019-01-07] MEDS ORDERED: HYDROmorphONE 0.5 MG/0.5 ML SYG IV (18:30)
[2019-01-07] MEDS ORDERED: GLUCOSE GEL 15 GRAM TUBE BUCCAL (18:30)
[2019-01-07] MEDS ORDERED: DEXTROSE 50% 50 ML SYRINGE IV ×2 (18:30)
[2019-01-07] MEDS ORDERED: GLUCAGON 1 MG INJ IM (18:30)
[2019-01-07] MEDS ORDERED: VANCOMYCIN IV PER PHARMACY XX (18:30)
[2019-01-07] MEDS ORDERED: NACL 0.9% 3 ML SYG IV (18:30)
[2019-01-07] MEDS ORDERED: GLUCOSE GEL 15 GRAM TUBE PO ×2 (18:30)
[2019-01-07 19:12] LABS: ADD MAN DIFF? NO
[2019-01-07 19:13] LABS: WHITE BLOOD COUNT 8.6 10^3/ul (4.8-10.8)
[2019-01-07 19:13] LABS: BASOPHIL # 0.1 10^3/ul (0.0-0.1); BASOPHILS % 0.8 % (0.0-2.0); EOSINOPHILS # 0.2 10^3/ul (0.0-0.5); EOSINOPHILS % 2.3 % (0.0-7.0); HEMATOCRIT 38.1 % (42.0-52.0); HEMOGLOBIN 12.1 g/dl (14.0-18.0); LYMPHOCYTES # 2.3 10^3/ul (0.8-2.9); LYMPHOCYTES % 26.2 % (15.0-51.0); MEAN CORPUSCULAR HEMOGLOBIN 29.5 pg (29.0-33.0); MEAN CORPUSCULAR HGB CONC 31.8 g/dl (32.0-37.0); MEAN CORPUSCULAR VOLUME 92.9 fl (82.0-101.0); MEAN PLATELET VOLUME 11.7 fl (7.4-10.4); MONOCYTE # 1.1 10^3/ul (0.3-0.9); MONOCYTES % 12.7 % (0.0-11.0); NEUTROPHIL # 4.9 10^3/ul (1.6-7.5); NEUTROPHILS % 57.3 % (39.0-77.0); PLATELET COUNT 174 10^3/UL (140-415); RED CELL DISTRIBUTION WIDTH 14.3 % (11.5-14.5)
[2019-01-07 19:31] LABS: LACTIC ACID 2.6 mmol/L (0.5-2.0)
[2019-01-07] MEDS: morphine 2 MG INJ IV (19:31)
[2019-01-07 19:32] LABS: INR 1.09; PROTIME 14.2 Sec (11.9-14.9); PT RATIO 1.1
[2019-01-07 19:33] LABS: C-REACTIVE PROTEIN 5.6 mg/dl (0.0-0.9); PARTIAL THROMBOPLASTIN TIME 31.4 Sec (23.0-35.0)
[2019-01-07 19:33] LABS: URIC ACID 6.8 mg/dl (3.1-7.9)
[2019-01-07 20:38] LABS: ERYTHROCYTE SEDIMENTATION RATE 110 mm/Hr (0-20)
[2019-01-07] MEDS ORDERED: METOLAZONE 5 MG TAB PO (21:00)
[2019-01-07] MEDS: SEVELAMER CARBONATE 0.8 GM PKT PO (21:10)
[2019-01-07] MEDS: FUROSEMIDE 40 MG TAB PO (21:10)
[2019-01-07] MEDS: HEPARIN 25000 UNITS/250 ML 250 ML IV (22:26)
[2019-01-07] MEDS ORDERED: SODIUM CHLORIDE 0.9% 1L BAG IV (22:30)
[2019-01-07] MEDS: VANCOMYCIN 1 GM 250 ML IVPB (22:59)
[2019-01-07] MEDS: METOLAZONE 10 MG TAB PO (23:38)
[2019-01-07] MEDS: INSULIN GLARGINE [LANTus] (100 UNITS/ML) SYG SC (23:42)
[2019-01-08 02:11] LABS: LACTIC ACID 2.5 mmol/L (0.5-2.0)
[2019-01-08] MEDS: SOD CHLORIDE 0.9% 500 ML IV (02:36)
[2019-01-08 06:24] LABS: ADD MAN DIFF? NO
[2019-01-08 06:33] LABS: BASOPHIL # 0.1 10^3/ul (0.0-0.1); BASOPHILS % 1.2 % (0.0-2.0); EOSINOPHILS # 0.3 10^3/ul (0.0-0.5); EOSINOPHILS % 5.2 % (0.0-7.0); HEMATOCRIT 32.3 % (42.0-52.0); HEMOGLOBIN 10.2 g/dl (14.0-18.0); LYMPHOCYTES # 1.5 10^3/ul (0.8-2.9); LYMPHOCYTES % 29.6 % (15.0-51.0); MEAN CORPUSCULAR HEMOGLOBIN 29.3 pg (29.0-33.0); MEAN CORPUSCULAR HGB CONC 31.6 g/dl (32.0-37.0); MEAN CORPUSCULAR VOLUME 92.8 fl (82.0-101.0); MEAN PLATELET VOLUME 12.3 fl (7.4-10.4); MONOCYTE # 0.7 10^3/ul (0.3-0.9); MONOCYTES % 12.9 % (0.0-11.0); NEUTROPHIL # 2.7 10^3/ul (1.6-7.5); NEUTROPHILS % 50.7 % (39.0-77.0); PLATELET COUNT 171 10^3/UL (140-415); RED BLOOD COUNT 3.48 10^6/ul (4.70-6.10); RED CELL DISTRIBUTION WIDTH 14.4 % (11.5-14.5)
[2019-01-08 06:33] LABS: WHITE BLOOD COUNT 5.2 10^3/ul (4.8-10.8)
[2019-01-08 06:51] LABS: PARTIAL THROMBOPLASTIN TIME 56.5 Sec (23.0-35.0)
[2019-01-08 06:55] LABS: ALBUMIN 3.8 g/dl (3.3-4.9); ALBUMIN/GLOBULIN RATIO 1.08; ALKALINE PHOSPHATASE 52 IU/L (42-121); ANION GAP 15 (5-13); ASPARTATE AMINO TRANSFERASE 13 IU/L (15-46); BILIRUBIN,INDIRECT 0.1 mg/dl (0-1.1); BILIRUBIN,TOTAL 0.1 mg/dl (0.2-1.3); BLOOD UREA NITROGEN 83 mg/dl (7-20); CALCIUM 8.6 mg/dl (8.4-10.2); CARBON DIOXIDE 27 mmol/L (21-31); CHLORIDE 95 mmol/L (97-110); CREATININE 10.37 mg/dl (0.61-1.24); Estimated GFR 5 mL/min (>60); GLUCOSE 252 mg/dl (70-220); POTASSIUM 5.5 mmol/L (3.5-5.1); SODIUM 137 mmol/L (135-144); TOTAL PROTEIN 7.3 g/dl (6.1-8.1)
[2019-01-08 07:01] LABS: ALANINE AMINOTRANSFERASE < 6 IU/L (13-69)
[2019-01-08] MEDS: HEPARIN 25000 UNITS/250 ML 250 ML IV ×2 (07:02→21:33)
[2019-01-08 07:31] LABS: HEMOGLOBIN A1C 7.8 % (0-5.9)
[2019-01-08] MEDS: MULTIVIT/CA CARB/B CMPLX/FA TAB PO (08:20)
[2019-01-08] MEDS: SEVELAMER CARBONATE 0.8 GM PKT PO ×3 (08:20→18:29)
[2019-01-08] MEDS: METOLAZONE 10 MG TAB PO ×3 (08:30→20:11)
[2019-01-08] MEDS: FUROSEMIDE 40 MG TAB PO ×3 (08:30→20:10)
[2019-01-08] MEDS: HYDROCODONE/APAP (5/325) TAB PO ×2 (08:36→20:12)
[2019-01-08 08:46] LABS: LACTIC ACID 1.9 mmol/L (0.5-2.0)
[2019-01-08] MEDS: INSULIN ASPART [NOVOLOG] 3 ML PEN SC ×6 (09:01→21:00)
[2019-01-08] MEDS: CLOPIDOGREL 75 MG TAB PO (09:06)
[2019-01-08 10:45] LABS: HEPATITIS B SURFACE ANTIGEN NEGATIVE (NEGATIVE)
[2019-01-08] MEDS: ALBUMIN HUMAN 25% 100 ML IV (10:50)
[2019-01-08 12:09] LABS: HEPATITIS B SURFACE ANTIBODY INDETERMINATE (NEGATIVE)
[2019-01-08 13:40] LABS: PARTIAL THROMBOPLASTIN TIME 67.2 Sec (23.0-35.0)
[2019-01-08] MEDS: ATORVASTATIN 40 MG TAB PO (20:12)
[2019-01-08] MEDS: INSULIN GLARGINE [LANTus] (100 UNITS/ML) SYG SC (20:20)
[2019-01-08] MEDS ORDERED: IODIXANOL LOCM 50 ML BTL (20:53)
[2019-01-08] MEDS ORDERED: SOD CHLORIDE 0.9% 100 ML (20:53)
[2019-01-08] MEDS ORDERED: IODIXANOL LOCM 100 ML BTL (20:53)
[2019-01-09 05:50] LABS: PARTIAL THROMBOPLASTIN TIME 86.2 Sec (23.0-35.0)
[2019-01-09 06:58] LABS: ADD MAN DIFF? NO
[2019-01-09 07:02] LABS: WHITE BLOOD COUNT 7.2 10^3/ul (4.8-10.8)
[2019-01-09 07:02] LABS: BASOPHIL # 0.1 10^3/ul (0.0-0.1); BASOPHILS % 0.8 % (0.0-2.0); EOSINOPHILS # 0.3 10^3/ul (0.0-0.5); EOSINOPHILS % 4.4 % (0.0-7.0); HEMATOCRIT 32.9 % (42.0-52.0); HEMOGLOBIN 10.4 g/dl (14.0-18.0); LYMPHOCYTES # 1.6 10^3/ul (0.8-2.9); LYMPHOCYTES % 22.2 % (15.0-51.0); MEAN CORPUSCULAR HEMOGLOBIN 29.3 pg (29.0-33.0); MEAN CORPUSCULAR HGB CONC 31.6 g/dl (32.0-37.0); MEAN CORPUSCULAR VOLUME 92.7 fl (82.0-101.0); MONOCYTE # 0.8 10^3/ul (0.3-0.9); MONOCYTES % 10.6 % (0.0-11.0); NEUTROPHIL # 4.5 10^3/ul (1.6-7.5); NEUTROPHILS % 61.6 % (39.0-77.0); PLATELET COUNT 171 10^3/UL (140-415); RED BLOOD COUNT 3.55 10^6/ul (4.70-6.10); RED CELL DISTRIBUTION WIDTH 14.3 % (11.5-14.5)
[2019-01-09 07:17] LABS: ANION GAP 16 (5-13); BLOOD UREA NITROGEN 61 mg/dl (7-20); CALCIUM 8.5 mg/dl (8.4-10.2); CARBON DIOXIDE 27 mmol/L (21-31); CHLORIDE 93 mmol/L (97-110); CREATININE 8.91 mg/dl (0.61-1.24); Estimated GFR 6 mL/min (>60); GLUCOSE 171 mg/dl (70-220); POTASSIUM 5.6 mmol/L (3.5-5.1); SODIUM 136 mmol/L (135-144)
[2019-01-09 07:37] LABS: VANCOMYCIN,RANDOM 18.6 ug/ml
[2019-01-09] MEDS: SEVELAMER CARBONATE 0.8 GM PKT PO ×3 (08:22→18:32)
[2019-01-09] MEDS: MULTIVIT/CA CARB/B CMPLX/FA TAB PO (08:23)
[2019-01-09] MEDS: METOLAZONE 10 MG TAB PO ×2 (08:23→20:32)
[2019-01-09] MEDS: CLOPIDOGREL 75 MG TAB PO (08:24)
[2019-01-09] MEDS: FUROSEMIDE 40 MG TAB PO ×2 (08:24→20:32)
[2019-01-09] MEDS: INSULIN ASPART [NOVOLOG] 3 ML PEN SC ×7 (09:13→20:30)
[2019-01-09 14:01] LABS: PARTIAL THROMBOPLASTIN TIME 62.5 Sec (23.0-35.0)
[2019-01-09] MEDS: HEPARIN 25000 UNITS/250 ML 250 ML IV (15:47)
[2019-01-09] MEDS: VANCOMYCIN 1 GM 250 ML IVPB (17:17)
[2019-01-09] MEDS: APIXABAN 5 MG TABLET PO (20:31)
[2019-01-09] MEDS: ATORVASTATIN 40 MG TAB PO (20:32)
[2019-01-09] MEDS: INSULIN GLARGINE [LANTus] (100 UNITS/ML) SYG SC (20:43)
[2019-01-09] MEDS ORDERED: APIXABAN 5 MG TABLET PO (21:00)
[2019-01-10] MEDS: SEVELAMER CARBONATE 0.8 GM PKT PO ×3 (01:00→17:52)
[2019-01-10] MEDS: HYDROCODONE/APAP (5/325) TAB PO (05:08)
[2019-01-10] MEDS: INSULIN ASPART [NOVOLOG] 3 ML PEN SC ×7 (07:55→20:42)
[2019-01-10] MEDS: MULTIVIT/CA CARB/B CMPLX/FA TAB PO (08:11)
[2019-01-10] MEDS: METOLAZONE 10 MG TAB PO ×2 (08:11→20:37)
[2019-01-10] MEDS: FUROSEMIDE 40 MG TAB PO ×2 (08:11→20:36)
[2019-01-10] MEDS: CLOPIDOGREL 75 MG TAB PO (08:11)
[2019-01-10] MEDS: APIXABAN 5 MG TABLET PO ×2 (08:18→20:36)
[2019-01-10] MEDS: ATORVASTATIN 40 MG TAB PO (20:36)
[2019-01-10] MEDS: INSULIN GLARGINE [LANTus] (100 UNITS/ML) SYG SC (20:42)
[2019-01-11] MEDS: INSULIN ASPART [NOVOLOG] 3 ML PEN SC ×6 (07:57→17:17)
[2019-01-11] MEDS: SEVELAMER CARBONATE 0.8 GM PKT PO ×3 (07:58→17:22)
[2019-01-11] MEDS: CLOPIDOGREL 75 MG TAB PO (08:33)
[2019-01-11] MEDS: APIXABAN 5 MG TABLET PO (08:33)
[2019-01-11] MEDS: MULTIVIT/CA CARB/B CMPLX/FA TAB PO (08:33)
[2019-01-11] MEDS: METOLAZONE 10 MG TAB PO (09:00)
[2019-01-11] MEDS: FUROSEMIDE 40 MG TAB PO (09:00)
== END 2019-01-11 20:24 | disposition home or self-care (01) | DRG 299 ==
LOC: E/R 13:14 → TEL 17:26
PROVIDERS: Internal Medicine
PROC: 5A1D70Z Performance of Urinary Filtration, Intermittent, Less than 6 Hours Per Day (ICD-10-PCS; principal; 2019-01-08)
DX: E11.52 Type 2 diabetes mellitus with diabetic peripheral angiopathy with gangrene (principal); N18.6 End stage renal disease; L03.116 Cellulitis of left lower limb; I12.0 Hypertensive chronic kidney disease with stage 5 chronic kidney disease or end stage renal disease; I87.1 Compression of vein; I82.402 Acute embolism and thrombosis of unspecified deep veins of left lower extremity; E11.22 Type 2 diabetes mellitus with diabetic chronic kidney disease; Z99.2 Dependence on renal dialysis; E87.5 Hyperkalemia; E87.70 Fluid overload, unspecified; E78.5 Hyperlipidemia, unspecified; R23.4 Changes in skin texture; E11.42 Type 2 diabetes mellitus with diabetic polyneuropathy; E66.01 Morbid (severe) obesity due to excess calories; Z68.35 Body mass index [BMI] 35.0-35.9, adult; I25.10 Atherosclerotic heart disease of native coronary artery without angina pectoris; E11.621 Type 2 diabetes mellitus with foot ulcer; L97.529 Non-pressure chronic ulcer of other part of left foot with unspecified severity; E11.51 Type 2 diabetes mellitus with diabetic peripheral angiopathy without gangrene; I48.91 Unspecified atrial fibrillation; I44.1 Atrioventricular block, second degree; I70.213 Atherosclerosis of native arteries of extremities with intermittent claudication, bilateral legs; E11.628 Type 2 diabetes mellitus with other skin complications; I83.893 Varicose veins of bilateral lower extremities with other complications; Z79.4 Long term (current) use of insulin; Z79.01 Long term (current) use of anticoagulants; Z98.61 Coronary angioplasty status
CPT/HCPCS: 36415; 71045; 73630-LT; 75635; 80048; 80053; 80202; 82962; 83036; 83605; 84484; 84560; 85025; 85610; 85651; 85730; 86140; 86706; 87040-91; 87340; 90935; 93005; 93922; 93970; 96374; 96375; 97161; 99291-25

== ENCOUNTER 2019-01-28 09:27 | Day surgery (SDC) | payer MEDICARE, BC ==
[2019-01-28 10:36] LABS: ADD MAN DIFF? NO
[2019-01-28 10:44] LABS: BASOPHIL # 0.1 10^3/ul (0.0-0.1); BASOPHILS % 0.7 % (0.0-2.0); EOSINOPHILS # 0.1 10^3/ul (0.0-0.5); EOSINOPHILS % 1.1 % (0.0-7.0); HEMATOCRIT 28.3 % (42.0-52.0); LYMPHOCYTES # 1.6 10^3/ul (0.8-2.9); LYMPHOCYTES % 16.9 % (15.0-51.0); MEAN CORPUSCULAR HEMOGLOBIN 28.9 pg (29.0-33.0); MEAN CORPUSCULAR HGB CONC 31.8 g/dl (32.0-37.0); MEAN PLATELET VOLUME 12.1 fl (7.4-10.4); MONOCYTE # 0.8 10^3/ul (0.3-0.9); MONOCYTES % 8.3 % (0.0-11.0); NEUTROPHILS % 72.5 % (39.0-77.0); PLATELET COUNT 231 10^3/UL (140-415); RED BLOOD COUNT 3.11 10^6/ul (4.70-6.10); RED CELL DISTRIBUTION WIDTH 15.6 % (11.5-14.5)
[2019-01-28 10:44] LABS: WHITE BLOOD COUNT 9.6 10^3/ul (4.8-10.8)
[2019-01-28 10:52] LABS: HOLD TRANSMISSIONS 1
[2019-01-28 11:04] LABS: INR 1.02; PROTIME 13.5 Sec (11.9-14.9); PT RATIO 1.1
[2019-01-28 11:07] LABS: ANION GAP 17 (5-13); CALCIUM 9.1 mg/dl (8.4-10.2); CARBON DIOXIDE 27 mmol/L (21-31); CHLORIDE 92 mmol/L (97-110); Estimated GFR 6 mL/min (>60); GLUCOSE 248 mg/dl (70-220); SODIUM 136 mmol/L (135-144)
[2019-01-28 11:09] LABS: PARTIAL THROMBOPLASTIN TIME 39.4 Sec (23.0-35.0)
[2019-01-28 11:11] LABS: BLOOD UREA NITROGEN 75 mg/dl (7-20); CREATININE 8.95 mg/dl (0.61-1.24); POTASSIUM 5.6 mmol/L (3.5-5.1)
[2019-01-28] MEDS ORDERED: IODIXANOL LOCM 100 ML BTL (11:37)
[2019-01-28] MEDS ORDERED: HEPARIN 1000 UNITS/NS (A-LINE) 1,000 ML (11:37)
[2019-01-28] MEDS ORDERED: FENTAnyl 50 MCG/ML VIAL (11:37)
[2019-01-28] MEDS ORDERED: LIDOCAINE 1% (MDV) 20 ML INJ (11:37)
[2019-01-28] MEDS ORDERED: MIDAZOLAM 1 MG/ML 2 ML INJ (11:37)
[2019-01-28] MEDS ORDERED: IODIXANOL LOCM 50 ML BTL (12:29)
[2019-01-28] MEDS ORDERED: HEPARIN 1000 UNITS/ML 10 ML INJ (12:32)
== END 2019-01-28 14:15 | disposition home or self-care (01) ==
LOC: CCL 09:27 → SDS 09:27 → CCL 14:15
DX: I12.0 Hypertensive chronic kidney disease with stage 5 chronic kidney disease or end stage renal disease (principal); N18.6 End stage renal disease; E11.9 Type 2 diabetes mellitus without complications
CPT/HCPCS: 36903; 80048; 82962; 85025; 85610; 85730

== ENCOUNTER 2019-02-03 06:31 | Inpatient (IN) | payer MEDICARE, BC ==
[2019-02-03 06:59] LABS: ABNORMAL IP MESSAGE 1; HEMATOCRIT 18.7 % (42.0-52.0); MEAN CORPUSCULAR HEMOGLOBIN 29.6 pg (29.0-33.0); MEAN CORPUSCULAR VOLUME 95.4 fl (82.0-101.0); MEAN PLATELET VOLUME 12.1 fl (7.4-10.4); NUCLEATED RED BLOOD CELLS% 0.2 /100WBC (0.0-0.0); PLATELET COUNT 214 10^3/UL (140-415); POSITIVE DIFF @See below; RED BLOOD COUNT 1.96 10^6/ul (4.70-6.10)
[2019-02-03 07:06] LABS: ADD MAN DIFF? YES; HEMOGLOBIN 5.8 g/dl (14.0-18.0)
[2019-02-03 07:23] LABS: ANION GAP 15 (5-13); BLOOD UREA NITROGEN 111 mg/dl (7-20); CALCIUM 8.6 mg/dl (8.4-10.2); CARBON DIOXIDE 30 mmol/L (21-31); CHLORIDE 91 mmol/L (97-110); CREATININE 8.62 mg/dl (0.61-1.24); Estimated GFR 6 mL/min (>60); GLUCOSE 295 mg/dl (70-220); POTASSIUM 5.7 mmol/L (3.5-5.1); SODIUM 136 mmol/L (135-144)
[2019-02-03 07:26] LABS: OCCULT BLOOD STOOL POSITIVE (NEGATIVE)
[2019-02-03 07:34] LABS: TROPONIN-I 0.051 ng/ml (0.000-0.120)
[2019-02-03 07:36] LABS: ANISOCYTOSIS 1+ (0-0); BAND NEUTROPHILS #M 0.3 10^3/ul (0.0-0.6); BAND NEUTROPHILS % (M) 3 % (0-4); BASOPHIL #M 0.2 10^3/ul (0.0-0.0); BASOPHILS % (M) 2 % (0-2); EOSINOPHILS % (M) 1 % (0-7); HYPOCHROMASIA 2+ (0-0); LYMPHOCYTES % (M) 16 % (15-51); MICROCYTOSIS 1+ (0-0); MONOCYTE #M 0.7 10^3/ul (0.3-0.9); MONOCYTES % (M) 6 % (0-11); PLATELET ESTIMATE NORMAL; POLYCHROMASIA 1+ (0-0); SEG NEUT #M 9.4 10^3/ul (1.6-7.5); SEGMENTED NEUTROPHILS (M) % 72 % (39-77); SMUDGE%M 3 % (0-0)
[2019-02-03] MEDS: PANTOPRAZOLE 40 MG INJ IV (07:41)
[2019-02-03] MEDS: CEFEPIME 2GM/50 ML (PMX) 50 ML IVPB (07:41)
[2019-02-03] MEDS ORDERED: DEXTROSE 50% 50 ML SYRINGE IV ×3 (08:00→13:30)
[2019-02-03] MEDS: VANCOMYCIN 1 GM (PMX) 250 ML IVPB (08:28)
[2019-02-03] MEDS ORDERED: ONDANSETRON 4 MG INJ IV (08:30)
[2019-02-03] MEDS ORDERED: ACETAMINOPHEN 325 MG TAB PO (08:30)
[2019-02-03 08:43] LABS: INR 1.24; PROTIME 15.7 Sec (11.9-14.9); PT RATIO 1.2
[2019-02-03 08:44] LABS: PARTIAL THROMBOPLASTIN TIME 33.2 Sec (23.0-35.0)
[2019-02-03] MEDS: INSULIN REGULAR, HUMAN 100 UNIT/1 ML 3ML VIAL IVP (08:53)
[2019-02-03 11:22] LABS: LACTIC ACID 1.8 mmol/L (0.5-2.0)
[2019-02-03] MEDS: ALBUTEROL 0.5% (NEB) 2.5 MG/0.5 ML AMP INH (12:20)
[2019-02-03] MEDS ORDERED: NACL 0.9% 3 ML SYG IV (12:30)
[2019-02-03] MEDS: PANTOPRAZOLE IV 80 MG in SOD CHLORIDE 0.9% 100 ML IV (12:30)
[2019-02-03] MEDS ORDERED: GLUCAGON 1 MG INJ IM (13:30)
[2019-02-03] MEDS ORDERED: GLUCOSE GEL 15 GRAM TUBE BUCCAL (13:30)
[2019-02-03] MEDS ORDERED: GLUCOSE GEL 15 GRAM TUBE PO ×2 (13:30)
[2019-02-03 14:16] LABS: AHG CROSSMATCH 1 5
[2019-02-03] MEDS: INSULIN ASPART [NOVOLOG] 3 ML PEN SC ×3 (15:00→21:41)
[2019-02-03 16:29] LABS: CARCINOEMBRYONIC ANTIGEN 3.3 ng/ml (0.0-5.0)
[2019-02-03] MEDS: INSULIN GLARGINE [LANTus] (100 UNITS/ML) SYG SC (17:49)
[2019-02-03] MEDS: SEVELAMER CARBONATE 0.8 GM PKT PO (18:03)
[2019-02-03] MEDS: PEG/ELECTROLYTES 4L BTL PO (18:03)
[2019-02-03] MEDS: BISACODYL (EC) 5 MG TAB PO (18:03)
[2019-02-03 18:17] LABS: HEMATOCRIT 22.7 % (42.0-52.0); HEMOGLOBIN 7.4 g/dl (14.0-18.0)
[2019-02-03] MEDS ORDERED: SODIUM CHLORIDE 0.9% 1L BAG IV (18:30)
[2019-02-03] MEDS ORDERED: ALBUMIN HUMAN 25% 100 ML IV (18:30)
[2019-02-04] MEDS: ACCU-CHEK XX (02:00)
[2019-02-04] MEDS: PANTOPRAZOLE IV 80 MG in SOD CHLORIDE 0.9% 100 ML IV ×3 (02:22→20:08)
[2019-02-04 03:10] LABS: HEMATOCRIT 23.8 % (42.0-52.0); HEMOGLOBIN 7.7 g/dl (14.0-18.0)
[2019-02-04] MEDS: INSULIN ASPART [NOVOLOG] 3 ML PEN SC ×6 (03:51→20:12)
[2019-02-04] MEDS: PEG/ELECTROLYTES 4L BTL PO ×2 (05:39→18:32)
[2019-02-04] MEDS: BISACODYL (EC) 5 MG TAB PO ×2 (05:39→18:31)
[2019-02-04 06:25] LABS: ADD MAN DIFF? NO
[2019-02-04 06:33] LABS: BASOPHIL # 0.1 10^3/ul (0.0-0.1); BASOPHILS % 0.9 % (0.0-2.0); EOSINOPHILS # 0.2 10^3/ul (0.0-0.5); EOSINOPHILS % 2.8 % (0.0-7.0); HEMATOCRIT 22.6 % (42.0-52.0); HEMOGLOBIN 7.3 g/dl (14.0-18.0); LYMPHOCYTES # 0.9 10^3/ul (0.8-2.9); LYMPHOCYTES % 10.7 % (15.0-51.0); MEAN CORPUSCULAR HEMOGLOBIN 30.3 pg (29.0-33.0); MEAN CORPUSCULAR HGB CONC 32.3 g/dl (32.0-37.0); MEAN CORPUSCULAR VOLUME 93.8 fl (82.0-101.0); MEAN PLATELET VOLUME 11.7 fl (7.4-10.4); MONOCYTE # 0.7 10^3/ul (0.3-0.9); NEUTROPHIL # 6.6 10^3/ul (1.6-7.5); NEUTROPHILS % 76.7 % (39.0-77.0); NUCLEATED RED BLOOD CELLS% 0.2 /100WBC (0.0-0.0); PLATELET COUNT 181 10^3/UL (140-415); RED BLOOD COUNT 2.41 10^6/ul (4.70-6.10); RED CELL DISTRIBUTION WIDTH 15.9 % (11.5-14.5)
[2019-02-04 06:33] LABS: WHITE BLOOD COUNT 8.6 10^3/ul (4.8-10.8)
[2019-02-04 07:02] LABS: ALANINE AMINOTRANSFERASE 21 IU/L (13-69); ALBUMIN 3.4 g/dl (3.3-4.9); ALBUMIN/GLOBULIN RATIO 1.13; ALKALINE PHOSPHATASE 35 IU/L (42-121); ANION GAP 11 (5-13); ASPARTATE AMINO TRANSFERASE 30 IU/L (15-46); BILIRUBIN,INDIRECT 0.1 mg/dl (0-1.1); BILIRUBIN,TOTAL 0.1 mg/dl (0.2-1.3); BLOOD UREA NITROGEN 59 mg/dl (7-20); CALCIUM 7.6 mg/dl (8.4-10.2); CARBON DIOXIDE 32 mmol/L (21-31); CHLORIDE 97 mmol/L (97-110); CHOL/HDL RATIO 5.6 RATIO; CHOLESTEROL 142 mg/dl (100-200); CREATININE 5.55 mg/dl (0.61-1.24); Estimated GFR 10 mL/min (>60); GLUCOSE 178 mg/dl (70-220); HDL CHOLESTEROL 25 mg/dl (30-78); LDL CHOLESTEROL,CALCULATED 61 mg/dl; PHOSPHORUS 4.3 mg/dl (2.5-4.9); POTASSIUM 4.5 mmol/L (3.5-5.1); SODIUM 140 mmol/L (135-144); TOTAL PROTEIN 6.4 g/dl (6.1-8.1); TRIGLYCERIDES 281 mg/dl (0-149)
[2019-02-04] MEDS: SEVELAMER CARBONATE 0.8 GM PKT PO ×3 (07:55→17:55)
[2019-02-04 08:17] LABS: HEMOGLOBIN A1C 6.4 % (0-5.9)
[2019-02-04] MEDS: INSULIN GLARGINE [LANTus] (100 UNITS/ML) SYG SC (08:46)
[2019-02-04] MEDS: MULTIVIT/CA CARB/B CMPLX/FA TAB PO (08:47)
[2019-02-04] MEDS: EZETIMIBE 10 MG TAB PO (08:47)
[2019-02-04] MEDS: FOLIC ACID 1 MG TAB PO (08:47)
[2019-02-04] MEDS: SOD CHLORIDE 0.9% 250 ML IV* (09:25)
[2019-02-04 09:50] LABS: IRON 40 ug/dl (35-150)
[2019-02-04 09:59] LABS: % IRON SATURATION 15 % SAT (22-52); TOTAL IRON BINDING CAPACITY 268 ug/dl (241-421)
[2019-02-04] MEDS: SOD FERRIC GLUC COMPLX 125 MG in SOD CHLORIDE 0.9% 100 ML IVPB (13:58)
[2019-02-04 19:57] LABS: HEMATOCRIT 24.4 % (42.0-52.0); HEMOGLOBIN 7.9 g/dl (14.0-18.0)
[2019-02-04] MEDS: ATORVASTATIN 40 MG TAB PO (20:09)
[2019-02-05] MEDS: INSULIN ASPART [NOVOLOG] 3 ML PEN SC ×6 (01:00→20:59)
[2019-02-05 01:16] LABS: HEMATOCRIT 22.4 % (42.0-52.0); HEMOGLOBIN 7.3 g/dl (14.0-18.0)
[2019-02-05] MEDS: ACCU-CHEK XX (02:00)
[2019-02-05] MEDS: PANTOPRAZOLE IV 80 MG in SOD CHLORIDE 0.9% 100 ML IV ×2 (05:20→17:59)
[2019-02-05 07:41] LABS: ADD MAN DIFF? NO
[2019-02-05 07:50] LABS: BASOPHIL # 0.1 10^3/ul (0.0-0.1); BASOPHILS % 0.8 % (0.0-2.0); EOSINOPHILS # 0.3 10^3/ul (0.0-0.5); EOSINOPHILS % 4.4 % (0.0-7.0); HEMATOCRIT 23.5 % (42.0-52.0); HEMOGLOBIN 7.6 g/dl (14.0-18.0); LYMPHOCYTES # 1.2 10^3/ul (0.8-2.9); LYMPHOCYTES % 18.5 % (15.0-51.0); MEAN CORPUSCULAR HEMOGLOBIN 30.5 pg (29.0-33.0); MEAN CORPUSCULAR HGB CONC 32.3 g/dl (32.0-37.0); MEAN CORPUSCULAR VOLUME 94.4 fl (82.0-101.0); MONOCYTE # 0.7 10^3/ul (0.3-0.9); MONOCYTES % 10.9 % (0.0-11.0); NEUTROPHIL # 4.2 10^3/ul (1.6-7.5); NEUTROPHILS % 64.8 % (39.0-77.0); PLATELET COUNT 175 10^3/UL (140-415); RED BLOOD COUNT 2.49 10^6/ul (4.70-6.10); RED CELL DISTRIBUTION WIDTH 17.2 % (11.5-14.5)
[2019-02-05 07:50] LABS: WHITE BLOOD COUNT 6.5 10^3/ul (4.8-10.8)
[2019-02-05] MEDS: SEVELAMER CARBONATE 0.8 GM PKT PO ×3 (07:55→17:59)
[2019-02-05 08:04] LABS: ANION GAP 13 (5-13); BLOOD UREA NITROGEN 63 mg/dl (7-20); CALCIUM 8.2 mg/dl (8.4-10.2); CARBON DIOXIDE 30 mmol/L (21-31); CHLORIDE 100 mmol/L (97-110); CREATININE 7.29 mg/dl (0.61-1.24); Estimated GFR 8 mL/min (>60); GLUCOSE 103 mg/dl (70-220); POTASSIUM 3.3 mmol/L (3.5-5.1); SODIUM 143 mmol/L (135-144)
[2019-02-05] MEDS: INSULIN GLARGINE [LANTus] (100 UNITS/ML) SYG SC (08:09)
[2019-02-05] MEDS: MULTIVIT/CA CARB/B CMPLX/FA TAB PO (08:10)
[2019-02-05] MEDS: EZETIMIBE 10 MG TAB PO (08:10)
[2019-02-05] MEDS: FOLIC ACID 1 MG TAB PO (08:10)
[2019-02-05] MEDS ORDERED: SOD FERRIC GLUC COMPLX 125 MG in SOD CHLORIDE 0.9% 100 ML IVPB (12:00)
[2019-02-05] MEDS: SOD FERRIC GLUC COMPLX 125 MG in SOD CHLORIDE 0.9% 100 ML IVPB (12:39)
[2019-02-05 14:44] LABS: HEMATOCRIT 24.2 % (42.0-52.0); HEMOGLOBIN 7.8 g/dl (14.0-18.0)
[2019-02-05] MEDS ORDERED: ONDANSETRON 4 MG INJ IV (15:30)
[2019-02-05 17:32] LABS: HEMATOCRIT 24.9 % (42.0-52.0); HEMOGLOBIN 8.1 g/dl (14.0-18.0)
[2019-02-05] MEDS: FUROSEMIDE 40 MG TAB PO (17:59)
[2019-02-05] MEDS: ATORVASTATIN 40 MG TAB PO (20:47)
[2019-02-06] MEDS: ACETAMINOPHEN 325 MG TAB PO (00:31)
[2019-02-06 00:43] LABS: HEMATOCRIT 30.5 % (42.0-52.0); HEMOGLOBIN 10.1 g/dl (14.0-18.0)
[2019-02-06] MEDS: INSULIN ASPART [NOVOLOG] 3 ML PEN SC ×6 (01:00→20:43)
[2019-02-06] MEDS: morphine 4 MG/ML VIAL IV (01:46)
[2019-02-06] MEDS: ACCU-CHEK XX (01:47)
[2019-02-06] MEDS ORDERED: HYDROCODONE/APAP (5/325) TAB PO (03:00)
[2019-02-06] MEDS: HYDROCODONE/APAP (5/325) TAB PO (03:27)
[2019-02-06] MEDS: PANTOPRAZOLE IV 80 MG in SOD CHLORIDE 0.9% 100 ML IV ×2 (05:09→09:44)
[2019-02-06] MEDS: FUROSEMIDE 40 MG TAB PO ×2 (05:09→17:14)
[2019-02-06 06:12] LABS: ADD MAN DIFF? NO
[2019-02-06 06:27] LABS: BASOPHILS % 0.6 % (0.0-2.0); EOSINOPHILS # 0.3 10^3/ul (0.0-0.5); EOSINOPHILS % 4.6 % (0.0-7.0); HEMATOCRIT 29.9 % (42.0-52.0); HEMOGLOBIN 9.8 g/dl (14.0-18.0); LYMPHOCYTES # 1.1 10^3/ul (0.8-2.9); LYMPHOCYTES % 17.4 % (15.0-51.0); MEAN CORPUSCULAR HEMOGLOBIN 29.8 pg (29.0-33.0); MEAN CORPUSCULAR HGB CONC 32.8 g/dl (32.0-37.0); MEAN CORPUSCULAR VOLUME 90.9 fl (82.0-101.0); MEAN PLATELET VOLUME 11.7 fl (7.4-10.4); MONOCYTE # 0.8 10^3/ul (0.3-0.9); MONOCYTES % 11.8 % (0.0-11.0); NEUTROPHIL # 4.1 10^3/ul (1.6-7.5); NEUTROPHILS % 65.1 % (39.0-77.0); PLATELET COUNT 199 10^3/UL (140-415); RED BLOOD COUNT 3.29 10^6/ul (4.70-6.10); RED CELL DISTRIBUTION WIDTH 18.6 % (11.5-14.5)
[2019-02-06 06:27] LABS: WHITE BLOOD COUNT 6.3 10^3/ul (4.8-10.8)
[2019-02-06 07:00] LABS: ANION GAP 12 (5-13); BLOOD UREA NITROGEN 34 mg/dl (7-20); CALCIUM 8.8 mg/dl (8.4-10.2); CARBON DIOXIDE 26 mmol/L (21-31); CHLORIDE 103 mmol/L (97-110); CREATININE 5.33 mg/dl (0.61-1.24); Estimated GFR 11 mL/min (>60); GLUCOSE 186 mg/dl (70-220); POTASSIUM 3.8 mmol/L (3.5-5.1); SODIUM 141 mmol/L (135-144)
[2019-02-06 07:18] LABS: HEPATITIS B SURFACE ANTIGEN NEGATIVE (NEGATIVE)
[2019-02-06] MEDS: MULTIVIT/CA CARB/B CMPLX/FA TAB PO (08:06)
[2019-02-06] MEDS: EZETIMIBE 10 MG TAB PO (08:06)
[2019-02-06] MEDS: FOLIC ACID 1 MG TAB PO (08:06)
[2019-02-06] MEDS: SEVELAMER CARBONATE 0.8 GM PKT PO ×3 (08:07→17:14)
[2019-02-06] MEDS: PENTOXIFYLLINE (SR) 400 MG TAB PO (08:07)
[2019-02-06] MEDS: INSULIN GLARGINE [LANTus] (100 UNITS/ML) SYG SC (09:11)
[2019-02-06 13:30] LABS: HEMATOCRIT 30.1 % (42.0-52.0); HEMOGLOBIN 9.9 g/dl (14.0-18.0)
[2019-02-06] MEDS: SOD FERRIC GLUC COMPLX 125 MG in SOD CHLORIDE 0.9% 100 ML IVPB (13:37)
[2019-02-06] MEDS: ONDANSETRON 4 MG TAB PO (13:41)
[2019-02-06] MEDS: PANTOPRAZOLE 40 MG INJ IV (17:15)
[2019-02-06] MEDS: ATORVASTATIN 40 MG TAB PO (23:38)
[2019-02-06] MEDS: FERROUS FUMARATE (SR) TAB PO (23:38)
[2019-02-07] MEDS: INSULIN ASPART [NOVOLOG] 3 ML PEN SC ×6 (00:53→20:53)
[2019-02-07] MEDS: ACCU-CHEK XX (02:00)
[2019-02-07] MEDS ORDERED: NITROGLYCERIN (SL) 0.4 MG TAB (03:18)
[2019-02-07] MEDS: NITROGLYCERIN (SL) 0.4 MG TAB SL ×4 (03:32→06:05)
[2019-02-07 03:39] LABS: ADD MAN DIFF? NO
[2019-02-07 03:59] LABS: CREATINE KINASE 65 IU/L (23-200)
[2019-02-07] MEDS ORDERED: IPRATROPIUM (HFA) 12.9 GM INHALER INH (04:00)
[2019-02-07] MEDS: morphine 2 MG INJ IV ×3 (04:00→07:16)
[2019-02-07] MEDS ORDERED: LEVALBUTEROL (NEB) 1.25 MG/0.5 ML AMP HHN (04:00)
[2019-02-07 04:01] LABS: ANION GAP 13 (5-13); BLOOD UREA NITROGEN 25 mg/dl (7-20); CARBON DIOXIDE 26 mmol/L (21-31); CHLORIDE 99 mmol/L (97-110); CREATININE 4.82 mg/dl (0.61-1.24); Estimated GFR 12 mL/min (>60); GLUCOSE 232 mg/dl (70-220); POTASSIUM 4.4 mmol/L (3.5-5.1); SODIUM 138 mmol/L (135-144)
[2019-02-07 04:12] LABS: CK INDEX 2.2; CK-MB 1.42 ng/ml (0.0-2.4)
[2019-02-07 04:18] LABS: BASOPHIL # 0.1 10^3/ul (0.0-0.1); BASOPHILS % 0.7 % (0.0-2.0); EOSINOPHILS # 0.3 10^3/ul (0.0-0.5); EOSINOPHILS % 3.6 % (0.0-7.0); HEMATOCRIT 33.3 % (42.0-52.0); LYMPHOCYTES # 1.3 10^3/ul (0.8-2.9); LYMPHOCYTES % 15.2 % (15.0-51.0); MEAN CORPUSCULAR HEMOGLOBIN 29.9 pg (29.0-33.0); MEAN CORPUSCULAR VOLUME 90.5 fl (82.0-101.0); MEAN PLATELET VOLUME 11.1 fl (7.4-10.4); MONOCYTE # 0.9 10^3/ul (0.3-0.9); MONOCYTES % 10.3 % (0.0-11.0); NEUTROPHIL # 5.8 10^3/ul (1.6-7.5); NEUTROPHILS % 69.8 % (39.0-77.0); PLATELET COUNT 198 10^3/UL (140-415); RED BLOOD COUNT 3.68 10^6/ul (4.70-6.10); RED CELL DISTRIBUTION WIDTH 17.8 % (11.5-14.5)
[2019-02-07 04:18] LABS: WHITE BLOOD COUNT 8.3 10^3/ul (4.8-10.8)
[2019-02-07] MEDS: ACETAMINOPHEN 325 MG TAB PO (04:34)
[2019-02-07] MEDS: PANTOPRAZOLE 40 MG INJ IV ×2 (05:49→17:09)
[2019-02-07] MEDS: FUROSEMIDE 40 MG TAB PO ×2 (05:50→17:09)
[2019-02-07] MEDS: SOD CHLORIDE 0.9% 250 ML IV (06:30)
[2019-02-07 07:17] LABS: CREATINE KINASE 74 IU/L (23-200)
[2019-02-07] MEDS: SEVELAMER CARBONATE 0.8 GM PKT PO ×3 (07:24→17:09)
[2019-02-07 07:26] LABS: CK INDEX 2.1; CK-MB 1.53 ng/ml (0.0-2.4)
[2019-02-07] MEDS: PENTOXIFYLLINE (SR) 400 MG TAB PO (08:14)
[2019-02-07] MEDS: FOLIC ACID 1 MG TAB PO (08:14)
[2019-02-07] MEDS: MULTIVIT/CA CARB/B CMPLX/FA TAB PO (08:14)
[2019-02-07] MEDS: EZETIMIBE 10 MG TAB PO (08:14)
[2019-02-07] MEDS: FERROUS FUMARATE (SR) TAB PO ×2 (08:14→20:53)
[2019-02-07] MEDS: INSULIN GLARGINE [LANTus] (100 UNITS/ML) SYG SC (08:27)
[2019-02-07] MEDS: METOPROLOL 25 MG TAB PO ×2 (12:00→20:52)
[2019-02-07] MEDS: PROPOFOL 40 ML (12:24)
[2019-02-07] MEDS: EPHEDrine 25 MG/5 ML SYG (12:24)
[2019-02-07] MEDS: SOD CHLORIDE 0.9% 250 ML IV* (12:24)
[2019-02-07] MEDS: LIDOCAINE 2% (SDV) 5 ML INJ (12:24)
[2019-02-07] MEDS: SUCRALFATE (100 MG/ML) 10ML CUP GTB ×3 (12:52→20:52)
[2019-02-07] MEDS ORDERED: ISOSORBIDE DINITRATE (SA) 40 MG TAB PO (13:00)
[2019-02-07 14:36] LABS: CREATINE KINASE 52 IU/L (23-200)
[2019-02-07] MEDS: EPOETIN ALFA-EPBX (ESRD) 10,000 UNIT/ML VIAL SC (14:40)
[2019-02-07] MEDS: ISOSORBIDE MONONITRATE(SR)60 MG TAB PO (14:41)
[2019-02-07 14:50] LABS: CK INDEX 2.2; CK-MB 1.16 ng/ml (0.0-2.4); TROPONIN-I 0.859 ng/ml (0.000-0.120)
[2019-02-07] MEDS: ASCORBIC ACID 500 MG TAB PO (20:53)
[2019-02-07] MEDS: ATORVASTATIN 40 MG TAB PO (20:53)
[2019-02-08] MEDS: INSULIN ASPART [NOVOLOG] 3 ML PEN SC ×6 (01:00→21:12)
[2019-02-08] MEDS: ACCU-CHEK XX (02:00)
[2019-02-08] MEDS: PANTOPRAZOLE 40 MG INJ IV ×2 (05:35→17:10)
[2019-02-08] MEDS: FUROSEMIDE 40 MG TAB PO ×2 (05:40→17:10)
[2019-02-08 06:26] LABS: ADD MAN DIFF? NO
[2019-02-08 06:29] LABS: BASOPHIL # 0.1 10^3/ul (0.0-0.1); EOSINOPHILS # 0.6 10^3/ul (0.0-0.5); EOSINOPHILS % 8.3 % (0.0-7.0); HEMATOCRIT 27.9 % (42.0-52.0); HEMOGLOBIN 9.1 g/dl (14.0-18.0); LYMPHOCYTES # 1.2 10^3/ul (0.8-2.9); LYMPHOCYTES % 17.6 % (15.0-51.0); MEAN CORPUSCULAR HEMOGLOBIN 29.9 pg (29.0-33.0); MEAN CORPUSCULAR HGB CONC 32.6 g/dl (32.0-37.0); MEAN CORPUSCULAR VOLUME 91.8 fl (82.0-101.0); MEAN PLATELET VOLUME 11.4 fl (7.4-10.4); MONOCYTE # 0.9 10^3/ul (0.3-0.9); MONOCYTES % 13.9 % (0.0-11.0); NEUTROPHILS % 58.9 % (39.0-77.0); PLATELET COUNT 214 10^3/UL (140-415); RED BLOOD COUNT 3.04 10^6/ul (4.70-6.10); RED CELL DISTRIBUTION WIDTH 17.3 % (11.5-14.5)
[2019-02-08 06:29] LABS: WHITE BLOOD COUNT 6.8 10^3/ul (4.8-10.8)
[2019-02-08 07:17] LABS: ALANINE AMINOTRANSFERASE 16 IU/L (13-69); ALBUMIN 3.4 g/dl (3.3-4.9); ALBUMIN/GLOBULIN RATIO 1.03; ALKALINE PHOSPHATASE 47 IU/L (42-121); ANION GAP 13 (5-13); ASPARTATE AMINO TRANSFERASE 18 IU/L (15-46); BILIRUBIN,INDIRECT 0.3 mg/dl (0-1.1); BILIRUBIN,TOTAL 0.3 mg/dl (0.2-1.3); BLOOD UREA NITROGEN 35 mg/dl (7-20); CALCIUM 8.4 mg/dl (8.4-10.2); CARBON DIOXIDE 26 mmol/L (21-31); CHLORIDE 100 mmol/L (97-110); Estimated GFR 7 mL/min (>60); GLUCOSE 86 mg/dl (70-220); POTASSIUM 3.6 mmol/L (3.5-5.1); SODIUM 139 mmol/L (135-144); TOTAL PROTEIN 6.7 g/dl (6.1-8.1)
[2019-02-08] MEDS: MULTIVIT/CA CARB/B CMPLX/FA TAB PO (08:26)
[2019-02-08] MEDS: FOLIC ACID 1 MG TAB PO (08:26)
[2019-02-08] MEDS: SEVELAMER CARBONATE 0.8 GM PKT PO ×3 (08:26→17:10)
[2019-02-08] MEDS: SUCRALFATE (100 MG/ML) 10ML CUP GTB ×4 (08:26→20:40)
[2019-02-08] MEDS: ASCORBIC ACID 500 MG TAB PO ×2 (08:26→20:40)
[2019-02-08] MEDS: FERROUS FUMARATE (SR) TAB PO ×2 (08:26→20:41)
[2019-02-08] MEDS: METOPROLOL 25 MG TAB PO (08:27)
[2019-02-08] MEDS: PENTOXIFYLLINE (SR) 400 MG TAB PO (08:27)
[2019-02-08] MEDS: EZETIMIBE 10 MG TAB PO (08:27)
[2019-02-08] MEDS: ISOSORBIDE MONONITRATE(SR)60 MG TAB PO (08:27)
[2019-02-08] MEDS: INSULIN GLARGINE [LANTus] (100 UNITS/ML) SYG SC (08:36)
[2019-02-08] MEDS: ASPIRIN (EC) 325 MG TAB PO (10:05)
[2019-02-08] MEDS: HEPARIN 1000 UNITS/ML 10 ML INJ IV ×2 (10:33→23:56)
[2019-02-08] MEDS: HEPARIN 25000 UNITS/250 ML 250 ML IV (10:35)
[2019-02-08 10:45] LABS: ADD MAN DIFF? NO
[2019-02-08 10:48] LABS: BASOPHIL # 0.1 10^3/ul (0.0-0.1); BASOPHILS % 1.1 % (0.0-2.0); EOSINOPHILS # 0.4 10^3/ul (0.0-0.5); EOSINOPHILS % 6.6 % (0.0-7.0); HEMATOCRIT 29.4 % (42.0-52.0); HEMOGLOBIN 9.5 g/dl (14.0-18.0); LYMPHOCYTES % 14.9 % (15.0-51.0); MEAN CORPUSCULAR HEMOGLOBIN 29.6 pg (29.0-33.0); MEAN CORPUSCULAR HGB CONC 32.3 g/dl (32.0-37.0); MEAN CORPUSCULAR VOLUME 91.6 fl (82.0-101.0); MEAN PLATELET VOLUME 11.5 fl (7.4-10.4); MONOCYTE # 0.5 10^3/ul (0.3-0.9); MONOCYTES % 8.3 % (0.0-11.0); NEUTROPHIL # 4.5 10^3/ul (1.6-7.5); NEUTROPHILS % 68.6 % (39.0-77.0); PLATELET COUNT 209 10^3/UL (140-415); RED BLOOD COUNT 3.21 10^6/ul (4.70-6.10); RED CELL DISTRIBUTION WIDTH 16.9 % (11.5-14.5)
[2019-02-08 10:48] LABS: WHITE BLOOD COUNT 6.5 10^3/ul (4.8-10.8)
[2019-02-08 11:09] LABS: INR 0.99; PROTIME 13.2 Sec (11.9-14.9)
[2019-02-08 11:10] LABS: PARTIAL THROMBOPLASTIN TIME 35.8 Sec (23.0-35.0)
[2019-02-08 17:06] LABS: HEMATOCRIT 32.5 % (42.0-52.0); HEMOGLOBIN 10.5 g/dl (14.0-18.0)
[2019-02-08 17:54] LABS: PARTIAL THROMBOPLASTIN TIME 71.5 Sec (23.0-35.0)
[2019-02-08] MEDS: ACETAMINOPHEN 325 MG TAB PO (19:43)
[2019-02-08] MEDS: ATORVASTATIN 40 MG TAB PO (20:41)
[2019-02-08 23:38] LABS: PARTIAL THROMBOPLASTIN TIME 43.8 Sec (23.0-35.0)
[2019-02-08] MEDS: ZOLPIDEM 5 MG TAB PO (23:54)
[2019-02-09] MEDS: ACCU-CHEK XX (01:28)
[2019-02-09] MEDS: INSULIN ASPART [NOVOLOG] 3 ML PEN SC ×6 (01:28→20:46)
[2019-02-09] MEDS: PANTOPRAZOLE 40 MG INJ IV ×2 (05:16→17:46)
[2019-02-09] MEDS: FUROSEMIDE 40 MG TAB PO ×2 (05:16→17:57)
[2019-02-09] MEDS: HEPARIN 25000 UNITS/250 ML 250 ML IV ×2 (06:12→07:03)
[2019-02-09 06:16] LABS: ADD MAN DIFF? NO
[2019-02-09 06:20] LABS: WHITE BLOOD COUNT 7.2 10^3/ul (4.8-10.8)
[2019-02-09 06:20] LABS: BASOPHIL # 0.1 10^3/ul (0.0-0.1); BASOPHILS % 1.1 % (0.0-2.0); EOSINOPHILS # 0.6 10^3/ul (0.0-0.5); HEMATOCRIT 31.9 % (42.0-52.0); HEMOGLOBIN 10.1 g/dl (14.0-18.0); LYMPHOCYTES # 1.1 10^3/ul (0.8-2.9); LYMPHOCYTES % 15.7 % (15.0-51.0); MEAN CORPUSCULAR HEMOGLOBIN 29.4 pg (29.0-33.0); MEAN CORPUSCULAR HGB CONC 31.7 g/dl (32.0-37.0); MEAN CORPUSCULAR VOLUME 92.7 fl (82.0-101.0); MEAN PLATELET VOLUME 10.9 fl (7.4-10.4); MONOCYTE # 0.9 10^3/ul (0.3-0.9); MONOCYTES % 12.6 % (0.0-11.0); NEUTROPHIL # 4.4 10^3/ul (1.6-7.5); NEUTROPHILS % 61.9 % (39.0-77.0); PLATELET COUNT 233 10^3/UL (140-415); RED BLOOD COUNT 3.44 10^6/ul (4.70-6.10); RED CELL DISTRIBUTION WIDTH 16.6 % (11.5-14.5)
[2019-02-09 06:50] LABS: ANION GAP 14 (5-13); BLOOD UREA NITROGEN 31 mg/dl (7-20); CALCIUM 8.7 mg/dl (8.4-10.2); CARBON DIOXIDE 28 mmol/L (21-31); CHLORIDE 100 mmol/L (97-110); Estimated GFR 8 mL/min (>60); GLUCOSE 119 mg/dl (70-220); POTASSIUM 3.7 mmol/L (3.5-5.1); SODIUM 142 mmol/L (135-144)
[2019-02-09 06:54] LABS: PARTIAL THROMBOPLASTIN TIME 86.4 Sec (23.0-35.0)
[2019-02-09] MEDS: INSULIN GLARGINE [LANTus] (100 UNITS/ML) SYG SC (08:00)
[2019-02-09] MEDS: SEVELAMER CARBONATE 0.8 GM PKT PO ×3 (09:32→18:09)
[2019-02-09] MEDS: MULTIVIT/CA CARB/B CMPLX/FA TAB PO (09:32)
[2019-02-09] MEDS: ASCORBIC ACID 500 MG TAB PO ×2 (09:32→20:33)
[2019-02-09] MEDS: FERROUS FUMARATE (SR) TAB PO ×2 (09:32→20:33)
[2019-02-09] MEDS: SUCRALFATE (100 MG/ML) 10ML CUP GTB ×4 (09:32→20:33)
[2019-02-09] MEDS: FOLIC ACID 1 MG TAB PO (09:33)
[2019-02-09] MEDS: EZETIMIBE 10 MG TAB PO (09:33)
[2019-02-09] MEDS: PENTOXIFYLLINE (SR) 400 MG TAB PO (09:33)
[2019-02-09] MEDS: ASPIRIN 81 MG TAB PO (09:33)
[2019-02-09] MEDS: ISOSORBIDE MONONITRATE(SR)60 MG TAB PO (09:33)
[2019-02-09] MEDS ORDERED: HEPARIN 1000 UNITS/ML 10 ML INJ (13:08)
[2019-02-09] MEDS ORDERED: IODIXANOL LOCM 100 ML BTL (13:08)
[2019-02-09] MEDS ORDERED: LIDOCAINE 1% (MDV) 20 ML INJ (13:08)
[2019-02-09] MEDS ORDERED: NITROGLYCERIN (IC) 100 MCG/ML INJ (13:09)
[2019-02-09] MEDS ORDERED: MIDAZOLAM 1 MG/ML 2 ML INJ (13:09)
[2019-02-09] MEDS ORDERED: VERAPAMIL 5 MG INJ (13:09)
[2019-02-09] MEDS ORDERED: FENTAnyl 50 MCG/ML VIAL (13:09)
[2019-02-09 13:18] LABS: PARTIAL THROMBOPLASTIN TIME 33.4 Sec (23.0-35.0)
[2019-02-09] MEDS: HYDROCODONE/APAP (5/325) TAB PO (19:25)
[2019-02-09] MEDS: ATORVASTATIN 40 MG TAB PO (20:33)
[2019-02-09] MEDS: ZOLPIDEM 5 MG TAB PO (23:02)
[2019-02-10] MEDS: INSULIN ASPART [NOVOLOG] 3 ML PEN SC ×6 (01:00→21:00)
[2019-02-10] MEDS: ACCU-CHEK XX (02:04)
[2019-02-10 05:14] LABS: ADD MAN DIFF? NO
[2019-02-10 05:16] LABS: WHITE BLOOD COUNT 8.6 10^3/ul (4.8-10.8)
[2019-02-10 05:16] LABS: BASOPHIL # 0.1 10^3/ul (0.0-0.1); BASOPHILS % 1.1 % (0.0-2.0); EOSINOPHILS # 0.6 10^3/ul (0.0-0.5); EOSINOPHILS % 6.4 % (0.0-7.0); HEMATOCRIT 30.4 % (42.0-52.0); HEMOGLOBIN 9.7 g/dl (14.0-18.0); LYMPHOCYTES # 0.9 10^3/ul (0.8-2.9); MEAN CORPUSCULAR HEMOGLOBIN 29.1 pg (29.0-33.0); MEAN CORPUSCULAR HGB CONC 31.9 g/dl (32.0-37.0); MEAN CORPUSCULAR VOLUME 91.3 fl (82.0-101.0); MEAN PLATELET VOLUME 10.8 fl (7.4-10.4); MONOCYTE # 0.9 10^3/ul (0.3-0.9); MONOCYTES % 10.7 % (0.0-11.0); NEUTROPHILS % 70.4 % (39.0-77.0); PLATELET COUNT 269 10^3/UL (140-415); RED BLOOD COUNT 3.33 10^6/ul (4.70-6.10); RED CELL DISTRIBUTION WIDTH 16.5 % (11.5-14.5)
[2019-02-10 05:40] LABS: ANION GAP 12 (5-13); BLOOD UREA NITROGEN 38 mg/dl (7-20); CALCIUM 8.3 mg/dl (8.4-10.2); CARBON DIOXIDE 28 mmol/L (21-31); CHLORIDE 100 mmol/L (97-110); CREATININE 8.71 mg/dl (0.61-1.24); Estimated GFR 6 mL/min (>60); GLUCOSE 113 mg/dl (70-220); POTASSIUM 3.8 mmol/L (3.5-5.1); SODIUM 140 mmol/L (135-144)
[2019-02-10] MEDS: PANTOPRAZOLE 40 MG INJ IV ×2 (05:55→17:53)
[2019-02-10] MEDS: FUROSEMIDE 40 MG TAB PO ×2 (05:56→17:53)
[2019-02-10] MEDS: INSULIN GLARGINE [LANTus] (100 UNITS/ML) SYG SC (08:00)
[2019-02-10] MEDS: FERROUS FUMARATE (SR) TAB PO ×2 (08:19→21:01)
[2019-02-10] MEDS: FOLIC ACID 1 MG TAB PO (08:20)
[2019-02-10] MEDS: ASPIRIN 81 MG TAB PO (08:20)
[2019-02-10] MEDS: EZETIMIBE 10 MG TAB PO (08:20)
[2019-02-10] MEDS: PENTOXIFYLLINE (SR) 400 MG TAB PO (08:20)
[2019-02-10] MEDS: ASCORBIC ACID 500 MG TAB PO ×2 (08:20→21:01)
[2019-02-10] MEDS: ISOSORBIDE MONONITRATE(SR)60 MG TAB PO (08:20)
[2019-02-10] MEDS: MULTIVIT/CA CARB/B CMPLX/FA TAB PO (08:20)
[2019-02-10] MEDS: SUCRALFATE (100 MG/ML) 10ML CUP GTB ×4 (08:21→21:01)
[2019-02-10] MEDS: SEVELAMER CARBONATE 0.8 GM PKT PO ×3 (08:21→17:33)
[2019-02-10] MEDS: EPOETIN ALFA-EPBX (ESRD) 3,000 UNIT/ML VIAL SC (17:50)
[2019-02-10] MEDS: ATORVASTATIN 40 MG TAB PO (21:01)
[2019-02-10] MEDS: ONDANSETRON 4 MG TAB PO (21:14)
[2019-02-10] MEDS: ZOLPIDEM 5 MG TAB PO (23:01)
[2019-02-11] MEDS: INSULIN ASPART [NOVOLOG] 3 ML PEN SC ×6 (00:44→21:38)
[2019-02-11] MEDS: ACCU-CHEK XX (01:40)
[2019-02-11] MEDS: PANTOPRAZOLE 40 MG INJ IV ×2 (05:07→17:35)
[2019-02-11] MEDS: FUROSEMIDE 40 MG TAB PO ×2 (05:07→17:36)
[2019-02-11 05:21] LABS: ADD MAN DIFF? NO
[2019-02-11 05:33] LABS: BASOPHIL # 0.1 10^3/ul (0.0-0.1); BASOPHILS % 0.8 % (0.0-2.0); EOSINOPHILS # 0.4 10^3/ul (0.0-0.5); EOSINOPHILS % 4.6 % (0.0-7.0); HEMATOCRIT 30.4 % (42.0-52.0); HEMOGLOBIN 9.9 g/dl (14.0-18.0); LYMPHOCYTES # 1.3 10^3/ul (0.8-2.9); LYMPHOCYTES % 14.5 % (15.0-51.0); MEAN CORPUSCULAR HEMOGLOBIN 29.6 pg (29.0-33.0); MEAN CORPUSCULAR HGB CONC 32.6 g/dl (32.0-37.0); MEAN CORPUSCULAR VOLUME 90.7 fl (82.0-101.0); MEAN PLATELET VOLUME 10.8 fl (7.4-10.4); MONOCYTE # 1.2 10^3/ul (0.3-0.9); MONOCYTES % 13.1 % (0.0-11.0); NEUTROPHILS % 66.4 % (39.0-77.0); PLATELET COUNT 300 10^3/UL (140-415); RED BLOOD COUNT 3.35 10^6/ul (4.70-6.10); RED CELL DISTRIBUTION WIDTH 15.9 % (11.5-14.5)
[2019-02-11 05:52] LABS: ANION GAP 13 (5-13); BLOOD UREA NITROGEN 27 mg/dl (7-20); CALCIUM 8.5 mg/dl (8.4-10.2); CARBON DIOXIDE 28 mmol/L (21-31); CHLORIDE 97 mmol/L (97-110); CREATININE 6.93 mg/dl (0.61-1.24); Estimated GFR 8 mL/min (>60); GLUCOSE 146 mg/dl (70-220); MAGNESIUM 2.1 mg/dl (1.7-2.5); POTASSIUM 3.7 mmol/L (3.5-5.1); SODIUM 138 mmol/L (135-144)
[2019-02-11] MEDS: SEVELAMER CARBONATE 0.8 GM PKT PO ×3 (08:02→17:35)
[2019-02-11] MEDS: INSULIN GLARGINE [LANTus] (100 UNITS/ML) SYG SC (08:06)
[2019-02-11] MEDS: EZETIMIBE 10 MG TAB PO (08:09)
[2019-02-11] MEDS: SUCRALFATE (100 MG/ML) 10ML CUP GTB ×4 (08:09→21:19)
[2019-02-11] MEDS: ASPIRIN 81 MG TAB PO (08:09)
[2019-02-11] MEDS: FERROUS FUMARATE (SR) TAB PO ×2 (08:10→23:42)
[2019-02-11] MEDS: PENTOXIFYLLINE (SR) 400 MG TAB PO (08:10)
[2019-02-11] MEDS: MULTIVIT/CA CARB/B CMPLX/FA TAB PO (08:10)
[2019-02-11] MEDS: ASCORBIC ACID 500 MG TAB PO ×2 (08:10→21:20)
[2019-02-11] MEDS: ISOSORBIDE MONONITRATE(SR)60 MG TAB PO (08:10)
[2019-02-11] MEDS: FOLIC ACID 1 MG TAB PO (08:10)
[2019-02-11 17:21] LABS: OCCULT BLOOD STOOL NEGATIVE (NEGATIVE)
[2019-02-11] MEDS: ATORVASTATIN 40 MG TAB PO (21:19)
[2019-02-11] MEDS: ACETAMINOPHEN 325 MG TAB PO (21:27)
[2019-02-11] MEDS: ZOLPIDEM 5 MG TAB PO (21:27)
[2019-02-12] MEDS: BALSAM PERU/CASTOR OIL 60 GM TUBE TOP ×4 (01:29→20:32)
[2019-02-12] MEDS: INSULIN ASPART [NOVOLOG] 3 ML PEN SC ×5 (01:38→18:23)
[2019-02-12] MEDS: ACCU-CHEK XX (02:00)
[2019-02-12 05:35] LABS: WHITE BLOOD COUNT 9.4 10^3/ul (4.8-10.8)
[2019-02-12 05:35] LABS: ADD MAN DIFF? NO
[2019-02-12 05:36] LABS: BASOPHIL # 0.1 10^3/ul (0.0-0.1); BASOPHILS % 1.2 % (0.0-2.0); EOSINOPHILS # 0.5 10^3/ul (0.0-0.5); EOSINOPHILS % 5.2 % (0.0-7.0); HEMATOCRIT 32.8 % (42.0-52.0); HEMOGLOBIN 10.5 g/dl (14.0-18.0); LYMPHOCYTES # 1.5 10^3/ul (0.8-2.9); LYMPHOCYTES % 16.3 % (15.0-51.0); MEAN CORPUSCULAR HEMOGLOBIN 28.8 pg (29.0-33.0); MEAN CORPUSCULAR VOLUME 90.1 fl (82.0-101.0); MEAN PLATELET VOLUME 10.3 fl (7.4-10.4); MONOCYTE # 1.1 10^3/ul (0.3-0.9); MONOCYTES % 11.8 % (0.0-11.0); NEUTROPHIL # 6.1 10^3/ul (1.6-7.5); PLATELET COUNT 343 10^3/UL (140-415); RED BLOOD COUNT 3.64 10^6/ul (4.70-6.10); RED CELL DISTRIBUTION WIDTH 15.5 % (11.5-14.5)
[2019-02-12 05:55] LABS: ANION GAP 12 (5-13); BLOOD UREA NITROGEN 28 mg/dl (7-20); CALCIUM 8.9 mg/dl (8.4-10.2); CARBON DIOXIDE 28 mmol/L (21-31); CHLORIDE 98 mmol/L (97-110); Estimated GFR 8 mL/min (>60); GLUCOSE 140 mg/dl (70-220); POTASSIUM 3.7 mmol/L (3.5-5.1); SODIUM 138 mmol/L (135-144)
[2019-02-12] MEDS: PANTOPRAZOLE 40 MG INJ IV (06:07)
[2019-02-12] MEDS: FUROSEMIDE 40 MG TAB PO ×2 (06:10→18:04)
[2019-02-12] MEDS: SUCRALFATE (100 MG/ML) 10ML CUP GTB ×4 (10:32→20:29)
[2019-02-12] MEDS: SEVELAMER CARBONATE 0.8 GM PKT PO ×3 (10:32→18:02)
[2019-02-12] MEDS: EZETIMIBE 10 MG TAB PO (10:33)
[2019-02-12] MEDS: ASCORBIC ACID 500 MG TAB PO ×2 (10:33→20:29)
[2019-02-12] MEDS: ASPIRIN 81 MG TAB PO (10:33)
[2019-02-12] MEDS: MULTIVIT/CA CARB/B CMPLX/FA TAB PO (10:33)
[2019-02-12] MEDS: FOLIC ACID 1 MG TAB PO (10:33)
[2019-02-12] MEDS: FERROUS FUMARATE (SR) TAB PO ×2 (10:34→20:30)
[2019-02-12] MEDS: INSULIN GLARGINE [LANTus] (100 UNITS/ML) SYG SC ×2 (10:45→10:55)
[2019-02-12] MEDS: PENTOXIFYLLINE (SR) 400 MG TAB PO (12:37)
[2019-02-12] MEDS: ISOSORBIDE MONONITRATE(SR)60 MG TAB PO (12:37)
[2019-02-12] MEDS: PANTOPRAZOLE (EC) 40 MG TAB PO (18:02)
[2019-02-12] MEDS: GUAIFENESIN/DM 5ML CUP PO (18:02)
[2019-02-12] MEDS: EPOETIN ALFA-EPBX (ESRD) 3,000 UNIT/ML VIAL SC (18:06)
[2019-02-12] MEDS: ATORVASTATIN 40 MG TAB PO (20:30)
[2019-02-12] MEDS: Insulin NOVOLOG SS MILD Algorithm (SS with meals and bedtime) SC (20:32)
[2019-02-12] MEDS: ZOLPIDEM 5 MG TAB PO (23:04)
[2019-02-13] MEDS: ACCU-CHEK XX ×2 (02:00→23:20)
[2019-02-13] MEDS: FUROSEMIDE 40 MG TAB PO ×2 (05:46→17:10)
[2019-02-13] MEDS: PANTOPRAZOLE (EC) 40 MG TAB PO ×2 (05:46→17:09)
[2019-02-13 05:56] LABS: ADD MAN DIFF? NO
[2019-02-13 06:06] LABS: WHITE BLOOD COUNT 9.2 10^3/ul (4.8-10.8)
[2019-02-13 06:06] LABS: BASOPHIL # 0.1 10^3/ul (0.0-0.1); BASOPHILS % 1.3 % (0.0-2.0); EOSINOPHILS # 0.6 10^3/ul (0.0-0.5); EOSINOPHILS % 6.2 % (0.0-7.0); HEMATOCRIT 30.3 % (42.0-52.0); HEMOGLOBIN 9.7 g/dl (14.0-18.0); LYMPHOCYTES # 1.8 10^3/ul (0.8-2.9); MEAN CORPUSCULAR HEMOGLOBIN 29.1 pg (29.0-33.0); MEAN PLATELET VOLUME 10.7 fl (7.4-10.4); MONOCYTES % 10.7 % (0.0-11.0); NEUTROPHIL # 5.7 10^3/ul (1.6-7.5); NEUTROPHILS % 62.1 % (39.0-77.0); PLATELET COUNT 368 10^3/UL (140-415); RED BLOOD COUNT 3.33 10^6/ul (4.70-6.10); RED CELL DISTRIBUTION WIDTH 15.6 % (11.5-14.5)
[2019-02-13 06:17] LABS: ANION GAP 14 (5-13); BLOOD UREA NITROGEN 38 mg/dl (7-20); CALCIUM 8.7 mg/dl (8.4-10.2); CARBON DIOXIDE 26 mmol/L (21-31); CHLORIDE 99 mmol/L (97-110); CREATININE 8.05 mg/dl (0.61-1.24); Estimated GFR 7 mL/min (>60); GLUCOSE 129 mg/dl (70-220); POTASSIUM 3.7 mmol/L (3.5-5.1); SODIUM 139 mmol/L (135-144)
[2019-02-13] MEDS: Insulin NOVOLOG SS MILD Algorithm (SS with meals and bedtime) SC ×4 (07:49→20:58)
[2019-02-13] MEDS: SEVELAMER CARBONATE 0.8 GM PKT PO ×3 (08:19→17:09)
[2019-02-13] MEDS: FERROUS FUMARATE (SR) TAB PO ×2 (08:20→20:20)
[2019-02-13] MEDS: SUCRALFATE (100 MG/ML) 10ML CUP GTB ×4 (08:20→20:20)
[2019-02-13] MEDS: MULTIVIT/CA CARB/B CMPLX/FA TAB PO (08:21)
[2019-02-13] MEDS: ASPIRIN 81 MG TAB PO (08:21)
[2019-02-13] MEDS: ISOSORBIDE MONONITRATE(SR)60 MG TAB PO (08:21)
[2019-02-13] MEDS: ASCORBIC ACID 500 MG TAB PO ×2 (08:21→20:20)
[2019-02-13] MEDS: FOLIC ACID 1 MG TAB PO (08:21)
[2019-02-13] MEDS: EZETIMIBE 10 MG TAB PO (08:22)
[2019-02-13] MEDS: BALSAM PERU/CASTOR OIL 60 GM TUBE TOP ×2 (08:22→20:58)
[2019-02-13] MEDS: PENTOXIFYLLINE (SR) 400 MG TAB PO (08:22)
[2019-02-13] MEDS: GUAIFENESIN/DM 5ML CUP PO ×2 (09:29→13:54)
[2019-02-13] MEDS: ATORVASTATIN 40 MG TAB PO (20:21)
[2019-02-13] MEDS: INSULIN ASPART [NOVOLOG] 3 ML PEN SC (21:20)
[2019-02-14] MEDS: ACCU-CHEK XX (02:03)
[2019-02-14] MEDS: PANTOPRAZOLE (EC) 40 MG TAB PO ×2 (06:15→17:55)
[2019-02-14] MEDS: FUROSEMIDE 40 MG TAB PO ×2 (06:16→17:56)
[2019-02-14] MEDS: SEVELAMER CARBONATE 0.8 GM PKT PO ×3 (07:33→17:55)
[2019-02-14] MEDS: GUAIFENESIN/DM 5ML CUP PO ×2 (07:33→21:31)
[2019-02-14] MEDS: INSULIN GLARGINE [LANTus] (100 UNITS/ML) SYG SC (07:39)
[2019-02-14] MEDS: Insulin NOVOLOG SS MILD Algorithm (SS with meals and bedtime) SC ×4 (07:39→21:41)
[2019-02-14] MEDS: PENTOXIFYLLINE (SR) 400 MG TAB PO (08:32)
[2019-02-14] MEDS: SUCRALFATE (100 MG/ML) 10ML CUP GTB ×4 (08:32→21:33)
[2019-02-14] MEDS: ISOSORBIDE MONONITRATE(SR)60 MG TAB PO (08:32)
[2019-02-14] MEDS: EZETIMIBE 10 MG TAB PO (08:32)
[2019-02-14] MEDS: FOLIC ACID 1 MG TAB PO (08:33)
[2019-02-14] MEDS: FERROUS FUMARATE (SR) TAB PO ×2 (08:33→21:32)
[2019-02-14] MEDS: ASPIRIN 81 MG TAB PO (08:33)
[2019-02-14] MEDS: ASCORBIC ACID 500 MG TAB PO ×2 (08:33→21:32)
[2019-02-14] MEDS: MULTIVIT/CA CARB/B CMPLX/FA TAB PO (08:33)
[2019-02-14] MEDS: BALSAM PERU/CASTOR OIL 60 GM TUBE TOP ×2 (08:34→21:00)
[2019-02-14] MEDS: DOCUSATE SODIUM 250 MG CAP PO (12:04)
[2019-02-14] MEDS: LACTULOSE 30ML CUP PO (12:04)
[2019-02-14] MEDS: ATORVASTATIN 40 MG TAB PO (21:32)
[2019-02-15] MEDS: ACCU-CHEK XX (02:45)
[2019-02-15] MEDS: PANTOPRAZOLE (EC) 40 MG TAB PO ×2 (05:39→17:30)
[2019-02-15] MEDS: FUROSEMIDE 40 MG TAB PO ×2 (05:39→17:31)
[2019-02-15] MEDS: GUAIFENESIN/DM 5ML CUP PO ×2 (05:41→21:20)
[2019-02-15 05:52] LABS: ADD MAN DIFF? NO
[2019-02-15 06:01] LABS: WHITE BLOOD COUNT 10.7 10^3/ul (4.8-10.8)
[2019-02-15 06:01] LABS: BASOPHIL # 0.1 10^3/ul (0.0-0.1); BASOPHILS % 1.2 % (0.0-2.0); EOSINOPHILS # 0.5 10^3/ul (0.0-0.5); EOSINOPHILS % 4.3 % (0.0-7.0); HEMATOCRIT 30.8 % (42.0-52.0); HEMOGLOBIN 9.8 g/dl (14.0-18.0); LYMPHOCYTES # 2.2 10^3/ul (0.8-2.9); LYMPHOCYTES % 20.8 % (15.0-51.0); MEAN CORPUSCULAR HGB CONC 31.8 g/dl (32.0-37.0); MEAN CORPUSCULAR VOLUME 91.1 fl (82.0-101.0); MEAN PLATELET VOLUME 10.4 fl (7.4-10.4); MONOCYTE # 1.1 10^3/ul (0.3-0.9); MONOCYTES % 9.8 % (0.0-11.0); NEUTROPHIL # 6.7 10^3/ul (1.6-7.5); NEUTROPHILS % 63.1 % (39.0-77.0); PLATELET COUNT 392 10^3/UL (140-415); RED BLOOD COUNT 3.38 10^6/ul (4.70-6.10); RED CELL DISTRIBUTION WIDTH 15.6 % (11.5-14.5)
[2019-02-15 06:22] LABS: ANION GAP 16 (5-13); BLOOD UREA NITROGEN 49 mg/dl (7-20); CALCIUM 8.8 mg/dl (8.4-10.2); CARBON DIOXIDE 25 mmol/L (21-31); CHLORIDE 96 mmol/L (97-110); CREATININE 8.38 mg/dl (0.61-1.24); Estimated GFR 6 mL/min (>60); GLUCOSE 163 mg/dl (70-220); SODIUM 137 mmol/L (135-144)
[2019-02-15 06:24] LABS: INR 1.07; PT RATIO 1.1
[2019-02-15 06:25] LABS: PARTIAL THROMBOPLASTIN TIME 30.4 Sec (23.0-35.0)
[2019-02-15] MEDS: CEFAZOLIN 2 GM/50 ML (PMX) 50 ML IVPB (07:30)
[2019-02-15] MEDS: SEVELAMER CARBONATE 0.8 GM PKT PO ×3 (07:47→17:30)
[2019-02-15] MEDS: Insulin NOVOLOG SS MILD Algorithm (SS with meals and bedtime) SC ×4 (07:58→21:49)
[2019-02-15] MEDS: INSULIN GLARGINE [LANTus] (100 UNITS/ML) SYG SC (07:58)
[2019-02-15] MEDS: FERROUS FUMARATE (SR) TAB PO ×2 (09:00→14:20)
[2019-02-15] MEDS: ASCORBIC ACID 500 MG TAB PO ×2 (09:00→14:21)
[2019-02-15] MEDS: ISOSORBIDE MONONITRATE(SR)60 MG TAB PO (09:07)
[2019-02-15] MEDS: ASPIRIN 81 MG TAB PO (09:07)
[2019-02-15] MEDS: EZETIMIBE 10 MG TAB PO (09:07)
[2019-02-15] MEDS: SUCRALFATE (100 MG/ML) 10ML CUP GTB ×4 (09:07→21:20)
[2019-02-15] MEDS: BALSAM PERU/CASTOR OIL 60 GM TUBE TOP ×2 (09:08→21:21)
[2019-02-15] MEDS: GUAIFENESIN/DM (SR) TAB PO ×2 (12:55→21:20)
[2019-02-15] MEDS: MULTIVIT/CA CARB/B CMPLX/FA TAB PO (14:20)
[2019-02-15] MEDS: FOLIC ACID 1 MG TAB PO (14:21)
[2019-02-15] MEDS: EPOETIN ALFA-EPBX (ESRD) 3,000 UNIT/ML VIAL SC (17:32)
[2019-02-15] MEDS: ATORVASTATIN 40 MG TAB PO (21:21)
[2019-02-15] MEDS: ZOLPIDEM 5 MG TAB PO (22:33)
[2019-02-15] MEDS: INSULIN ASPART [NOVOLOG] 3 ML PEN SC (22:42)
[2019-02-16] MEDS: ACCU-CHEK XX ×4 (00:20→23:00)
[2019-02-16 06:01] LABS: ADD MAN DIFF? NO
[2019-02-16 06:11] LABS: BASOPHIL # 0.1 10^3/ul (0.0-0.1); BASOPHILS % 0.9 % (0.0-2.0); EOSINOPHILS # 0.3 10^3/ul (0.0-0.5); EOSINOPHILS % 2.5 % (0.0-7.0); HEMATOCRIT 33.4 % (42.0-52.0); HEMOGLOBIN 10.5 g/dl (14.0-18.0); LYMPHOCYTES # 2.6 10^3/ul (0.8-2.9); LYMPHOCYTES % 20.1 % (15.0-51.0); MEAN CORPUSCULAR HGB CONC 31.4 g/dl (32.0-37.0); MEAN CORPUSCULAR VOLUME 92.3 fl (82.0-101.0); MEAN PLATELET VOLUME 10.5 fl (7.4-10.4); MONOCYTE # 1.3 10^3/ul (0.3-0.9); MONOCYTES % 9.9 % (0.0-11.0); NEUTROPHIL # 8.5 10^3/ul (1.6-7.5); NEUTROPHILS % 65.6 % (39.0-77.0); PLATELET COUNT 372 10^3/UL (140-415); RED BLOOD COUNT 3.62 10^6/ul (4.70-6.10); RED CELL DISTRIBUTION WIDTH 15.9 % (11.5-14.5)
[2019-02-16] MEDS: PANTOPRAZOLE (EC) 40 MG TAB PO (06:17)
[2019-02-16] MEDS: FUROSEMIDE 40 MG TAB PO (06:18)
[2019-02-16 06:27] LABS: INR 1.06; PROTIME 13.9 Sec (11.9-14.9); PT RATIO 1.1
[2019-02-16 06:40] LABS: ANION GAP 16 (5-13); BLOOD UREA NITROGEN 48 mg/dl (7-20); CALCIUM 9.3 mg/dl (8.4-10.2); CARBON DIOXIDE 26 mmol/L (21-31); CHLORIDE 97 mmol/L (97-110); Estimated GFR 7 mL/min (>60); GLUCOSE 199 mg/dl (70-220); MAGNESIUM 2.2 mg/dl (1.7-2.5); POTASSIUM 4.7 mmol/L (3.5-5.1); SODIUM 139 mmol/L (135-144)
[2019-02-16 06:56] LABS: PHOSPHORUS 3.8 mg/dl (2.5-4.9)
[2019-02-16] MEDS: ASCORBIC ACID 500 MG TAB PO (07:41)
[2019-02-16] MEDS: BALSAM PERU/CASTOR OIL 60 GM TUBE TOP (07:41)
[2019-02-16] MEDS: Insulin NOVOLOG SS MILD Algorithm (SS with meals and bedtime) SC ×2 (07:41→12:06)
[2019-02-16] MEDS: EZETIMIBE 10 MG TAB PO (07:41)
[2019-02-16] MEDS: SUCRALFATE (100 MG/ML) 10ML CUP GTB ×2 (07:42→11:37)
[2019-02-16] MEDS: FOLIC ACID 1 MG TAB PO (07:42)
[2019-02-16] MEDS: FERROUS FUMARATE (SR) TAB PO (07:42)
[2019-02-16] MEDS: ISOSORBIDE MONONITRATE(SR)60 MG TAB PO (07:42)
[2019-02-16] MEDS: MULTIVIT/CA CARB/B CMPLX/FA TAB PO (07:42)
[2019-02-16] MEDS: GUAIFENESIN/DM (SR) TAB PO (07:42)
[2019-02-16] MEDS: ASPIRIN 81 MG TAB PO (07:42)
[2019-02-16] MEDS: INSULIN GLARGINE [LANTus] (100 UNITS/ML) SYG SC (07:43)
[2019-02-16] MEDS: SEVELAMER CARBONATE 0.8 GM PKT PO ×2 (07:43→11:37)
[2019-02-16] MEDS: ASPIRIN 600 MG SUPP PR (12:00)
[2019-02-16] MEDS: HEPARIN (10000 UNITS/ML) 10,000 UNIT, MILRINONE LACTATE 10 MG in SOD CHLORIDE 0.9% 1,00... SC (12:00)
[2019-02-16] MEDS: MILRINONE LACTATE 2 MG in SOD CHLORIDE 0.9% 50 ML IV (12:00)
[2019-02-16] MEDS: PHENYLephrine 20MG IN 250 ML 250 ML IV (12:00)
[2019-02-16] MEDS: EPINEPHrine 4 MG in DEXTROSE 5% 246 ML IV (12:00)
[2019-02-16] MEDS: NORepinephrine 8MG/250 ML (PMX 250 ML IV (12:00)
[2019-02-16] MEDS ORDERED: ISOFLURANE 15 MIN (15:00)
[2019-02-16] MEDS ORDERED: NITROGLYCERIN 50 MG/D5W 250 ML BTL (15:00)
[2019-02-16] MEDS ORDERED: DOPamine-D5W 1.6 MG/ML 250 ML (15:00)
[2019-02-16] MEDS ORDERED: MIDAZOLAM 5 ML ×2 (15:24→17:55)
[2019-02-16] MEDS ORDERED: MAGNESIUM SULFATE (MG) 50% 10 ML INJ (15:32)
[2019-02-16] MEDS ORDERED: CA CHLORIDE 10% 10 ML SYRINGE (15:33)
[2019-02-16] MEDS ORDERED: POTASSIUM CHLORIDE 40 MEQ INJ (15:33)
[2019-02-16] MEDS ORDERED: LIDOCAINE 100 MG SYRINGE (15:33)
[2019-02-16] MEDS ORDERED: PHENYLephrine 10 MG INJ (15:35)
[2019-02-16] MEDS ORDERED: MANNITOL 20% 500 ML (15:36)
[2019-02-16] MEDS: SURGIFOAM POWDER 1 GM KIT (15:36)
[2019-02-16] MEDS: VANCOMYCIN 1 GM INJ (15:36)
[2019-02-16] MEDS: HEPARIN 1000 UNITS/ML 10 ML INJ (15:36)
[2019-02-16] MEDS ORDERED: ALBUMIN HUMAN 25% 100 ML (15:36)
[2019-02-16] MEDS ORDERED: HEPARIN 1000 UNITS/ML 10 ML INJ (15:36)
[2019-02-16] MEDS ORDERED: AMINOCAPROIC ACID 5 GM INJ ×4 (15:36→19:28)
[2019-02-16] MEDS: PAPAVERINE 60 MG INJ (15:36)
[2019-02-16] MEDS: THROMBIN 20,000 UNIT VIAL (15:36)
[2019-02-16] MEDS ORDERED: CEFAZOLIN 1 GM INJ (17:09)
[2019-02-16] MEDS ORDERED: FUROSEMIDE 10 ML ×2 (17:15→21:03)
[2019-02-16] MEDS ORDERED: HEPARIN 10,000 UNITS/ML 1 ML INJ (17:23)
[2019-02-16 18:54] LABS: AHG CROSSMATCH 1 4
[2019-02-16] MEDS ORDERED: PROTAMINE 250 MG INJ (19:27)
[2019-02-16] MEDS ORDERED: MAGNESIUM SULFATE 1 GM/D5W 100 ML IVPB (21:00)
[2019-02-16] MEDS ORDERED: DOPamine-D5W 1.6 MG/ML 250 ML IV ×2 (21:00→22:00)
[2019-02-16] MEDS ORDERED: NITROGLYCERIN 50 MG/D5W (PMX) 250 ML IV ×2 (21:00→22:00)
[2019-02-16] MEDS ORDERED: POTASSIUM CHLORIDE 50 ML IVPB (21:00)
[2019-02-16] MEDS ORDERED: HYDROmorphONE 0.5 MG/0.5 ML SYG IV (21:00)
[2019-02-16] MEDS ORDERED: DEXTROSE 50% 50 ML SYRINGE IV ×2 (21:00)
[2019-02-16] MEDS ORDERED: ROCURONIUM 50 MG INJ ×2 (21:01)
[2019-02-16] MEDS ORDERED: LIDOCAINE 2% (SDV) 5 ML INJ (21:01)
[2019-02-16] MEDS ORDERED: ETOMIDATE 20 MG INJ (21:01)
[2019-02-16] MEDS ORDERED: morphine 2 MG INJ IV ×2 (21:30)
[2019-02-16] MEDS: PROPOFOL 100 ML IV (21:30)
[2019-02-16] MEDS ORDERED: FENTAnyl 50 MCG/ML VIAL IV (21:30)
[2019-02-16] MEDS ORDERED: MEPERIDINE 25 MG INJ IV (21:30)
[2019-02-16] MEDS ORDERED: DIPHENHYDRAMINE 50 MG INJ IV (21:30)
[2019-02-16] MEDS ORDERED: ONDANSETRON 4 MG INJ IV (21:30)
[2019-02-16] MEDS ORDERED: EPHEDrine 25 MG/5 ML SYG IV (21:30)
[2019-02-16] MEDS ORDERED: MIDAZOLAM 1 MG/ML 2 ML INJ IV (22:00)
[2019-02-16] MEDS: INSULIN HUMAN REGULAR 100 UNIT in SOD CHLORIDE 0.9% 99 ML IVPB (22:09)
[2019-02-16] MEDS: POTASSIUM CHLORIDE 40 MEQ, CALCIUM CHLORIDE 10% 1 GM in DEXTROSE 5%-0.225% NACL 1,000 ML IV (22:17)
[2019-02-16] MEDS: CEFAZOLIN 1 GM/50 ML (PMX) 50 ML IVPB (22:25)
[2019-02-16] MEDS: INSULIN HUMAN REGULAR 100 UNIT in SOD CHLORIDE 0.9% 99 ML IV (22:30)
[2019-02-16 22:43] LABS: ADD MAN DIFF? NO
[2019-02-16 22:45] LABS: BASOPHIL # 0.1 10^3/ul (0.0-0.1); BASOPHILS % 0.5 % (0.0-2.0); EOSINOPHILS # 0.2 10^3/ul (0.0-0.5); EOSINOPHILS % 1.3 % (0.0-7.0); HEMATOCRIT 31.5 % (42.0-52.0); HEMOGLOBIN 10.2 g/dl (14.0-18.0); LYMPHOCYTES # 2.1 10^3/ul (0.8-2.9); LYMPHOCYTES % 12.2 % (15.0-51.0); MEAN CORPUSCULAR HEMOGLOBIN 29.5 pg (29.0-33.0); MEAN CORPUSCULAR HGB CONC 32.4 g/dl (32.0-37.0); MEAN PLATELET VOLUME 10.4 fl (7.4-10.4); MONOCYTE # 1.3 10^3/ul (0.3-0.9); MONOCYTES % 7.4 % (0.0-11.0); NEUTROPHIL # 13.1 10^3/ul (1.6-7.5); NEUTROPHILS % 77.5 % (39.0-77.0); PLATELET COUNT 231 10^3/UL (140-415); RED BLOOD COUNT 3.46 10^6/ul (4.70-6.10); RED CELL DISTRIBUTION WIDTH 15.2 % (11.5-14.5)
[2019-02-16 22:45] LABS: WHITE BLOOD COUNT 16.9 10^3/ul (4.8-10.8)
[2019-02-16 23:05] LABS: INR 1.39; PROTIME 17.2 Sec (11.9-14.9); PT RATIO 1.3
[2019-02-16 23:06] LABS: PARTIAL THROMBOPLASTIN TIME 30.9 Sec (23.0-35.0)
[2019-02-16] MEDS: FENTAnyl 50 MCG/ML VIAL IV (23:06)
[2019-02-16 23:11] LABS: ANION GAP 16 (5-13); BLOOD UREA NITROGEN 49 mg/dl (7-20); CALCIUM 8.5 mg/dl (8.4-10.2); CARBON DIOXIDE 20 mmol/L (21-31); CHLORIDE 102 mmol/L (97-110); CREATININE 7.59 mg/dl (0.61-1.24); Estimated GFR 7 mL/min (>60); GLUCOSE 163 mg/dl (70-220); MAGNESIUM 3.3 mg/dl (1.7-2.5); POTASSIUM 4.4 mmol/L (3.5-5.1); SODIUM 138 mmol/L (135-144)
[2019-02-17] MEDS: HYDROmorphONE 0.5 MG/0.5 ML SYG IV ×2 (00:15→03:09)
[2019-02-17] MEDS: ACCU-CHEK XX ×24 (00:22→23:00)
[2019-02-17] MEDS: ALBUMIN HUMAN 5% 250 ML IV (02:47)
[2019-02-17] MEDS ORDERED: NORepinephrine 8MG/250 ML (PMX 250 ML (02:55)
[2019-02-17] MEDS: NORepinephrine 8MG/250 ML (PMX 250 ML IV (03:04)
[2019-02-17 04:37] LABS: AADO2 Arterial 318.8 mmHg (7.0-24.0); Arterial Base Excess -4.6 mmol/L (-3.0-3); Arterial Blood Gas Oxygen Sat 98.4 mmHG (95.0-98.0); Arterial COHb 0.3 % (0.0-3.0); Arterial Fraction of Oxyhgb 97.9 % (93.0-99.0); Arterial HCO3 20.5 mmol/L (22.0-26.0); Arterial MetHb 0.2 % (0.0-1.5); Arterial pCO2 38.2 mmhg (35-45); MODE VENT - AC; MetHgb Venous 0.3 %; Sample Type Blood venous; Site A-Line; Site VENOUS LINE; Venous COHb 0.4 %; Venous Fraction OxyHgb 60.9 %; Venous Oxygen Sat 61.3 mmHG (55.0-75.0); Venous Total Hemglobin 11.1 g/dl
[2019-02-17 05:13] LABS: ADD MAN DIFF? NO
[2019-02-17 05:22] LABS: WHITE BLOOD COUNT 17.6 10^3/ul (4.8-10.8)
[2019-02-17 05:22] LABS: ABNORMAL IP MESSAGE 1; BASOPHIL # 0.1 10^3/ul (0.0-0.1); BASOPHILS % 0.5 % (0.0-2.0); EOSINOPHILS % 0.1 % (0.0-7.0); HEMATOCRIT 30.1 % (42.0-52.0); HEMOGLOBIN 9.6 g/dl (14.0-18.0); LYMPHOCYTES # 0.6 10^3/ul (0.8-2.9); LYMPHOCYTES % 3.3 % (15.0-51.0); MEAN CORPUSCULAR HEMOGLOBIN 29.5 pg (29.0-33.0); MEAN CORPUSCULAR HGB CONC 31.9 g/dl (32.0-37.0); MEAN CORPUSCULAR VOLUME 92.6 fl (82.0-101.0); MEAN PLATELET VOLUME 11.3 fl (7.4-10.4); MONOCYTE # 1.1 10^3/ul (0.3-0.9); MONOCYTES % 6.1 % (0.0-11.0); NEUTROPHIL # 15.6 10^3/ul (1.6-7.5); NEUTROPHILS % 88.7 % (39.0-77.0); PLATELET COUNT 276 10^3/UL (140-415); POSITIVE DIFF @See below; RED BLOOD COUNT 3.25 10^6/ul (4.70-6.10); RED CELL DISTRIBUTION WIDTH 15.7 % (11.5-14.5)
[2019-02-17 05:38] LABS: INR 1.31; PROTIME 16.4 Sec (11.9-14.9); PT RATIO 1.3
[2019-02-17 05:39] LABS: PARTIAL THROMBOPLASTIN TIME 32.8 Sec (23.0-35.0)
[2019-02-17 05:54] LABS: ANION GAP 15 (5-13); BLOOD UREA NITROGEN 51 mg/dl (7-20); CARBON DIOXIDE 20 mmol/L (21-31); CHLORIDE 103 mmol/L (97-110); CREATININE 8.28 mg/dl (0.61-1.24); Estimated GFR 7 mL/min (>60); GLUCOSE 189 mg/dl (70-220); MAGNESIUM 3.1 mg/dl (1.7-2.5); SODIUM 138 mmol/L (135-144)
[2019-02-17] MEDS: LORAZEPAM 2 MG INJ IV (06:13)
[2019-02-17 06:19] LABS: POTASSIUM 6.1 mmol/L (3.5-5.1)
[2019-02-17] MEDS ORDERED: FAMOTIDINE 20 MG INJ (07:46)
[2019-02-17] MEDS: CALCIUM GLUCONATE 10% 1 GM in DEXTROSE 5% 100 ML IVPB (07:50)
[2019-02-17] MEDS: ACETAMINOPHEN 1000MG/100ML IV 100 ML IVPB ×2 (07:51→13:26)
[2019-02-17] MEDS: ALBUTEROL 0.083% (NEB) 2.5 MG/3 ML AMP HHN (08:52)
[2019-02-17] MEDS: PROPOFOL 100 ML IV (09:30)
[2019-02-17] MEDS ORDERED: [UNRECOGNIZED DRUG - OTHER] XX (11:00)
[2019-02-17] MEDS: FAMOTIDINE 20 MG INJ IV (13:23)
[2019-02-17] MEDS: CEFAZOLIN 1 GM/50 ML (PMX) 50 ML IVPB ×2 (13:24→20:29)
[2019-02-17] MEDS ORDERED: ALBUMIN HUMAN 5% 250 ML IV (13:30)
[2019-02-17 14:16] LABS: Arterial Base Excess -4.3 mmol/L (-3.0-3); Arterial Blood Gas Oxygen Sat 94.6 mmHG (95.0-98.0); Arterial COHb 0.3 % (0.0-3.0); Arterial Fraction of Oxyhgb 94.1 % (93.0-99.0); Arterial HCO3 20.4 mmol/L (22.0-26.0); Arterial MetHb 0.2 % (0.0-1.5); Blood Gas PS 10; MODE VENT - CPAP; Site A-Line
[2019-02-17 16:37] LABS: ANION GAP 17 (5-13); BLOOD UREA NITROGEN 48 mg/dl (7-20); CALCIUM 9.2 mg/dl (8.4-10.2); CARBON DIOXIDE 19 mmol/L (21-31); CHLORIDE 104 mmol/L (97-110); CREATININE 7.69 mg/dl (0.61-1.24); Estimated GFR 7 mL/min (>60); GLUCOSE 108 mg/dl (70-220); POTASSIUM 5.2 mmol/L (3.5-5.1); SODIUM 140 mmol/L (135-144)
[2019-02-17] MEDS: FUROSEMIDE 40 MG TAB PO (18:03)
[2019-02-17] MEDS: ASPIRIN 325 MG TAB PO (18:04)
[2019-02-17] MEDS: FAMOTIDINE 20 MG TAB PO (20:29)
[2019-02-17] MEDS: ATORVASTATIN 40 MG TAB PO (20:29)
[2019-02-17 21:17] LABS: HEMATOCRIT 27.6 % (42.0-52.0)
[2019-02-18] MEDS: ACCU-CHEK XX ×13 (01:02→20:52)
[2019-02-18 05:10] LABS: ADD MAN DIFF? NO
[2019-02-18 05:14] LABS: WHITE BLOOD COUNT 14.5 10^3/ul (4.8-10.8)
[2019-02-18 05:14] LABS: BASOPHIL # 0.1 10^3/ul (0.0-0.1); BASOPHILS % 0.7 % (0.0-2.0); EOSINOPHILS % 0.1 % (0.0-7.0); HEMATOCRIT 25.3 % (42.0-52.0); HEMOGLOBIN 8.1 g/dl (14.0-18.0); LYMPHOCYTES # 1.1 10^3/ul (0.8-2.9); LYMPHOCYTES % 7.9 % (15.0-51.0); MEAN CORPUSCULAR HEMOGLOBIN 29.8 pg (29.0-33.0); MEAN PLATELET VOLUME 11.7 fl (7.4-10.4); MONOCYTES % 6.7 % (0.0-11.0); NEUTROPHIL # 12.2 10^3/ul (1.6-7.5); NEUTROPHILS % 83.8 % (39.0-77.0); PLATELET COUNT 189 10^3/UL (140-415); RED BLOOD COUNT 2.72 10^6/ul (4.70-6.10)
[2019-02-18 05:42] LABS: ANION GAP 16 (5-13); BLOOD UREA NITROGEN 54 mg/dl (7-20); CALCIUM 9.4 mg/dl (8.4-10.2); CARBON DIOXIDE 19 mmol/L (21-31); CHLORIDE 105 mmol/L (97-110); Estimated GFR 6 mL/min (>60); GLUCOSE 143 mg/dl (70-220); POTASSIUM 5.1 mmol/L (3.5-5.1); SODIUM 140 mmol/L (135-144)
[2019-02-18 05:45] LABS: MAGNESIUM 2.8 mg/dl (1.7-2.5)
[2019-02-18] MEDS: FUROSEMIDE 40 MG TAB PO ×2 (05:54→18:05)
[2019-02-18] MEDS: METOPROLOL 25 MG TAB PO (08:51)
[2019-02-18] MEDS: ASPIRIN 325 MG TAB PO (08:51)
[2019-02-18] MEDS: BALSAM PERU/CASTOR OIL 60 GM TUBE TOP (08:51)
[2019-02-18] MEDS: FAMOTIDINE 20 MG INJ IV (08:51)
[2019-02-18] MEDS: INSULIN GLARGINE [LANTus] (100 UNITS/ML) SYG SC (10:28)
[2019-02-18] MEDS ORDERED: GLUCOSE GEL 15 GRAM TUBE PO ×2 (12:00)
[2019-02-18] MEDS ORDERED: GLUCAGON 1 MG INJ IM (12:00)
[2019-02-18] MEDS ORDERED: DEXTROSE 50% 50 ML SYRINGE IV ×2 (12:00)
[2019-02-18] MEDS: ONDANSETRON 4 MG INJ IV (13:52)
[2019-02-18] MEDS: INSULIN ASPART [NOVOLOG] 3 ML PEN SC ×3 (13:53→20:40)
[2019-02-18] MEDS ORDERED: HEPARIN 1000 UNITS/ML 10 ML INJ (14:57)
[2019-02-18] MEDS: ATORVASTATIN 40 MG TAB PO (20:52)
[2019-02-19] MEDS: ACCU-CHEK XX ×5 (02:00→21:50)
[2019-02-19 03:56] LABS: ADD MAN DIFF? NO
[2019-02-19 04:21] LABS: WHITE BLOOD COUNT 13.6 10^3/ul (4.8-10.8)
[2019-02-19 04:21] LABS: BASOPHILS % 0.3 % (0.0-2.0); EOSINOPHILS # 0.1 10^3/ul (0.0-0.5); EOSINOPHILS % 0.4 % (0.0-7.0); HEMATOCRIT 27.8 % (42.0-52.0); HEMOGLOBIN 8.7 g/dl (14.0-18.0); LYMPHOCYTES # 1.1 10^3/ul (0.8-2.9); LYMPHOCYTES % 8.3 % (15.0-51.0); MEAN CORPUSCULAR HEMOGLOBIN 29.2 pg (29.0-33.0); MEAN CORPUSCULAR HGB CONC 31.3 g/dl (32.0-37.0); MEAN CORPUSCULAR VOLUME 93.3 fl (82.0-101.0); MONOCYTE # 0.2 10^3/ul (0.3-0.9); MONOCYTES % 1.6 % (0.0-11.0); NEUTROPHILS % 88.1 % (39.0-77.0); PLATELET COUNT 223 10^3/UL (140-415); RED BLOOD COUNT 2.98 10^6/ul (4.70-6.10); RED CELL DISTRIBUTION WIDTH 15.9 % (11.5-14.5)
[2019-02-19 04:24] LABS: ANION GAP 17 (5-13); BLOOD UREA NITROGEN 64 mg/dl (7-20); CARBON DIOXIDE 17 mmol/L (21-31); CHLORIDE 103 mmol/L (97-110); CREATININE 8.85 mg/dl (0.61-1.24); Estimated GFR 6 mL/min (>60); GLUCOSE 235 mg/dl (70-220); MAGNESIUM 2.7 mg/dl (1.7-2.5); POTASSIUM 5.3 mmol/L (3.5-5.1); SODIUM 137 mmol/L (135-144)
[2019-02-19] MEDS: FUROSEMIDE 40 MG TAB PO ×2 (05:53→17:34)
[2019-02-19] MEDS: INSULIN ASPART [NOVOLOG] 3 ML PEN SC ×6 (07:28→21:50)
[2019-02-19] MEDS: HEPARIN 1000 UNITS/ML 10 ML INJ CATHETER (07:30)
[2019-02-19] MEDS: ASPIRIN 325 MG TAB PO (08:28)
[2019-02-19] MEDS: FAMOTIDINE 20 MG INJ IV (08:31)
[2019-02-19] MEDS: BALSAM PERU/CASTOR OIL 60 GM TUBE TOP (08:32)
[2019-02-19] MEDS: HEPARIN 5,000 UNIT/1 ML VIAL SC ×2 (09:41→23:50)
[2019-02-19] MEDS: INSULIN GLARGINE [LANTus] (100 UNITS/ML) SYG SC (10:08)
[2019-02-19] MEDS ORDERED: HEPARIN 1000 UNITS/ML 10 ML INJ CATHETER (11:00)
[2019-02-19] MEDS: CEFAZOLIN 1 GM/50 ML (PMX) 50 ML IVPB (15:00)
[2019-02-19] MEDS: IOHEXOL 300MG/ML 30 ML BTL (15:20)
[2019-02-19] MEDS: HEPARIN 1000 UNITS/ML 10 ML INJ (15:30)
[2019-02-19] MEDS: LIDOCAINE 1%/EPI (1:100,000) (MDV) 20 ML (16:20)
[2019-02-19] MEDS: FUROSEMIDE 20 MG INJ IV (18:34)
[2019-02-19] MEDS: ALTEPLASE (CATHFLO) 2 MG INJ CATHETER ×2 (18:49→23:51)
[2019-02-19] MEDS: ATORVASTATIN 40 MG TAB PO (21:00)
[2019-02-19] MEDS ORDERED: FUROSEMIDE 40 MG INJ (22:54)
[2019-02-19] MEDS: FUROSEMIDE 40 MG INJ IV (23:11)
[2019-02-19 23:35] LABS: AADO2 Arterial 543.2 mmHg (7.0-24.0); Allen Test ACCEPTAB; Arterial Base Excess -6.4 mmol/L (-3.0-3); Arterial Blood Gas Oxygen Sat 98.7 mmHG (95.0-98.0); Arterial COHb 0.3 % (0.0-3.0); Arterial Fraction of Oxyhgb 98.1 % (93.0-99.0); Arterial HCO3 16.9 mmol/L (22.0-26.0); Arterial MetHb 0.3 % (0.0-1.5); Arterial pCO2 26.8 mmhg (35-45); MODE MASK - NRB; Site Right Radial
[2019-02-20] MEDS: FUROSEMIDE 40 MG INJ IV (02:37)
[2019-02-20] MEDS: ACCU-CHEK XX ×7 (02:57→21:00)
[2019-02-20] MEDS: INSULIN ASPART [NOVOLOG] 3 ML PEN SC ×11 (03:19→21:00)
[2019-02-20 05:17] LABS: ADD MAN DIFF? NO
[2019-02-20 05:19] LABS: WHITE BLOOD COUNT 15.5 10^3/ul (4.8-10.8)
[2019-02-20 05:19] LABS: BASOPHIL # 0.1 10^3/ul (0.0-0.1); BASOPHILS % 0.5 % (0.0-2.0); EOSINOPHILS # 0.2 10^3/ul (0.0-0.5); HEMATOCRIT 25.1 % (42.0-52.0); HEMOGLOBIN 8.2 g/dl (14.0-18.0); LYMPHOCYTES # 1.1 10^3/ul (0.8-2.9); LYMPHOCYTES % 7.1 % (15.0-51.0); MEAN CORPUSCULAR HEMOGLOBIN 29.5 pg (29.0-33.0); MEAN CORPUSCULAR HGB CONC 32.7 g/dl (32.0-37.0); MEAN CORPUSCULAR VOLUME 90.3 fl (82.0-101.0); MEAN PLATELET VOLUME 11.6 fl (7.4-10.4); MONOCYTE # 1.1 10^3/ul (0.3-0.9); MONOCYTES % 6.9 % (0.0-11.0); NEUTROPHIL # 12.9 10^3/ul (1.6-7.5); NEUTROPHILS % 83.6 % (39.0-77.0); PLATELET COUNT 230 10^3/UL (140-415); RED BLOOD COUNT 2.78 10^6/ul (4.70-6.10); RED CELL DISTRIBUTION WIDTH 15.9 % (11.5-14.5)
[2019-02-20 05:38] LABS: INR 1.19; PROTIME 15.2 Sec (11.9-14.9); PT RATIO 1.2
[2019-02-20 05:39] LABS: ALBUMIN/GLOBULIN RATIO 0.88; ALKALINE PHOSPHATASE 61 IU/L (42-121); ANION GAP 15 (5-13); ASPARTATE AMINO TRANSFERASE 17 IU/L (15-46); BILIRUBIN,INDIRECT 0.3 mg/dl (0-1.1); BILIRUBIN,TOTAL 0.3 mg/dl (0.2-1.3); BLOOD UREA NITROGEN 76 mg/dl (7-20); CALCIUM 8.9 mg/dl (8.4-10.2); CARBON DIOXIDE 19 mmol/L (21-31); CHLORIDE 102 mmol/L (97-110); CREATININE 9.79 mg/dl (0.61-1.24); Estimated GFR 5 mL/min (>60); GLUCOSE 196 mg/dl (70-220); MAGNESIUM 2.7 mg/dl (1.7-2.5); PARTIAL THROMBOPLASTIN TIME 41.8 Sec (23.0-35.0); PHOSPHORUS 6.2 mg/dl (2.5-4.9); POTASSIUM 4.5 mmol/L (3.5-5.1); SODIUM 136 mmol/L (135-144); TOTAL PROTEIN 6.4 g/dl (6.1-8.1)
[2019-02-20 05:59] LABS: ALANINE AMINOTRANSFERASE < 6 IU/L (13-69)
[2019-02-20] MEDS: FUROSEMIDE 40 MG TAB PO ×2 (06:00→18:13)
[2019-02-20] MEDS ORDERED: LIDOCAINE 1% (MDV) 20 ML INJ (06:38)
[2019-02-20] MEDS: FAMOTIDINE 20 MG INJ IV (08:46)
[2019-02-20] MEDS: ASPIRIN 325 MG TAB PO ×2 (09:00→14:07)
[2019-02-20] MEDS: INSULIN GLARGINE [LANTus] (100 UNITS/ML) SYG SC (09:03)
[2019-02-20] MEDS: HEPARIN 5,000 UNIT/1 ML VIAL SC (09:04)
[2019-02-20] MEDS: BALSAM PERU/CASTOR OIL 60 GM TUBE TOP (09:05)
[2019-02-20] MEDS: HEPARIN 1000 UNITS/ML 10 ML INJ HE (10:55)
[2019-02-20] MEDS: ALBUMIN HUMAN 25% 100 ML IV (11:52)
[2019-02-20] MEDS: ALTEPLASE (CATHFLO) 2 MG INJ CATHETER (13:32)
[2019-02-20] MEDS: APIXABAN 5 MG TABLET PO (21:15)
[2019-02-20] MEDS: ATORVASTATIN 40 MG TAB PO (21:15)
[2019-02-21] MEDS: ACCU-CHEK XX ×5 (02:00→20:15)
[2019-02-21] MEDS: FUROSEMIDE 40 MG TAB PO ×2 (05:57→17:01)
[2019-02-21 06:00] LABS: ADD MAN DIFF? NO
[2019-02-21 06:09] LABS: WHITE BLOOD COUNT 12.4 10^3/ul (4.8-10.8)
[2019-02-21 06:09] LABS: BASOPHIL # 0.1 10^3/ul (0.0-0.1); BASOPHILS % 0.8 % (0.0-2.0); EOSINOPHILS # 0.3 10^3/ul (0.0-0.5); EOSINOPHILS % 2.3 % (0.0-7.0); HEMATOCRIT 23.5 % (42.0-52.0); HEMOGLOBIN 7.6 g/dl (14.0-18.0); LYMPHOCYTES # 1.6 10^3/ul (0.8-2.9); MEAN CORPUSCULAR HGB CONC 32.3 g/dl (32.0-37.0); MEAN CORPUSCULAR VOLUME 89.7 fl (82.0-101.0); MEAN PLATELET VOLUME 11.9 fl (7.4-10.4); MONOCYTE # 1.1 10^3/ul (0.3-0.9); MONOCYTES % 9.2 % (0.0-11.0); NEUTROPHIL # 9.1 10^3/ul (1.6-7.5); PLATELET COUNT 226 10^3/UL (140-415); RED BLOOD COUNT 2.62 10^6/ul (4.70-6.10); RED CELL DISTRIBUTION WIDTH 15.8 % (11.5-14.5)
[2019-02-21 06:31] LABS: ANION GAP 12 (5-13); BLOOD UREA NITROGEN 72 mg/dl (7-20); CALCIUM 8.6 mg/dl (8.4-10.2); CARBON DIOXIDE 21 mmol/L (21-31); CHLORIDE 102 mmol/L (97-110); CREATININE 8.85 mg/dl (0.61-1.24); Estimated GFR 6 mL/min (>60); GLUCOSE 84 mg/dl (70-220); POTASSIUM 4.1 mmol/L (3.5-5.1); SODIUM 135 mmol/L (135-144)
[2019-02-21] MEDS: INSULIN ASPART [NOVOLOG] 3 ML PEN SC ×7 (07:49→20:14)
[2019-02-21] MEDS: ASPIRIN 325 MG TAB PO (08:04)
[2019-02-21] MEDS: APIXABAN 5 MG TABLET PO ×2 (08:04→20:13)
[2019-02-21] MEDS: BALSAM PERU/CASTOR OIL 60 GM TUBE TOP (08:05)
[2019-02-21] MEDS: INSULIN GLARGINE [LANTus] (100 UNITS/ML) SYG SC (08:13)
[2019-02-21] MEDS: OXYCODONE/ACETAMINOPHEN (5/325) TAB PO ×2 (16:54→20:14)
[2019-02-21] MEDS: ATORVASTATIN 40 MG TAB PO (20:13)
[2019-02-22] MEDS: ACCU-CHEK XX ×5 (02:00→20:19)
[2019-02-22] MEDS: OXYCODONE/ACETAMINOPHEN (5/325) TAB PO (05:59)
[2019-02-22] MEDS: FUROSEMIDE 40 MG TAB PO ×2 (05:59→17:25)
[2019-02-22] MEDS: INSULIN ASPART [NOVOLOG] 3 ML PEN SC ×7 (07:46→20:18)
[2019-02-22] MEDS: INSULIN GLARGINE [LANTus] (100 UNITS/ML) SYG SC (07:54)
[2019-02-22] MEDS: APIXABAN 5 MG TABLET PO ×2 (08:18→20:19)
[2019-02-22] MEDS: BALSAM PERU/CASTOR OIL 60 GM TUBE TOP (08:19)
[2019-02-22] MEDS: ASPIRIN 81 MG TAB PO (08:25)
[2019-02-22] MEDS ORDERED: ALBUMIN HUMAN 25% 100 ML (10:53)
[2019-02-22] MEDS: ALBUMIN HUMAN 25% 100 ML IV (11:32)
[2019-02-22] MEDS: HEPARIN 1000 UNITS/ML 10 ML INJ CATHETER (12:00)
[2019-02-22] MEDS: HEPARIN 1000 UNITS/ML 10 ML INJ HE (13:54)
[2019-02-22] MEDS: ALTEPLASE (CATHFLO) 2 MG INJ CATHETER (14:26)
[2019-02-22] MEDS: ATORVASTATIN 40 MG TAB PO (20:19)
[2019-02-23] MEDS: ACCU-CHEK XX ×5 (02:00→20:10)
[2019-02-23] MEDS: FUROSEMIDE 40 MG TAB PO ×2 (05:54→17:44)
[2019-02-23] MEDS: INSULIN ASPART [NOVOLOG] 3 ML PEN SC ×7 (08:00→20:02)
[2019-02-23] MEDS: APIXABAN 5 MG TABLET PO ×2 (08:22→20:02)
[2019-02-23] MEDS: ASPIRIN 81 MG TAB PO (08:23)
[2019-02-23] MEDS: BALSAM PERU/CASTOR OIL 60 GM TUBE TOP (08:31)
[2019-02-23] MEDS: INSULIN GLARGINE [LANTus] (100 UNITS/ML) SYG SC (08:45)
[2019-02-23] MEDS: ACETAMINOPHEN 325 MG TAB PO (19:57)
[2019-02-23] MEDS: ATORVASTATIN 40 MG TAB PO (20:02)
[2019-02-24] MEDS: ACCU-CHEK XX ×5 (02:00→20:21)
[2019-02-24] MEDS: FUROSEMIDE 40 MG TAB PO ×2 (06:28→17:14)
[2019-02-24] MEDS: ASPIRIN 81 MG TAB PO (08:07)
[2019-02-24] MEDS: APIXABAN 5 MG TABLET PO ×2 (08:07→21:37)
[2019-02-24] MEDS: BALSAM PERU/CASTOR OIL 60 GM TUBE TOP (08:07)
[2019-02-24] MEDS: INSULIN GLARGINE [LANTus] (100 UNITS/ML) SYG SC (08:13)
[2019-02-24] MEDS: INSULIN ASPART [NOVOLOG] 3 ML PEN SC ×7 (08:13→20:21)
[2019-02-24 09:19] LABS: ADD MAN DIFF? NO
[2019-02-24 09:23] LABS: ABNORMAL IP MESSAGE 1; BASOPHIL # 0.1 10^3/ul (0.0-0.1); BASOPHILS % 0.2 % (0.0-2.0); EOSINOPHILS # 0.1 10^3/ul (0.0-0.5); EOSINOPHILS % 0.4 % (0.0-7.0); HEMATOCRIT 25.4 % (42.0-52.0); HEMOGLOBIN 8.2 g/dl (14.0-18.0); LYMPHOCYTES # 0.8 10^3/ul (0.8-2.9); LYMPHOCYTES % 3.2 % (15.0-51.0); MEAN CORPUSCULAR HEMOGLOBIN 28.9 pg (29.0-33.0); MEAN CORPUSCULAR HGB CONC 32.3 g/dl (32.0-37.0); MEAN CORPUSCULAR VOLUME 89.4 fl (82.0-101.0); MEAN PLATELET VOLUME 11.4 fl (7.4-10.4); MONOCYTE # 0.7 10^3/ul (0.3-0.9); MONOCYTES % 2.8 % (0.0-11.0); NEUTROPHIL # 22.6 10^3/ul (1.6-7.5); NEUTROPHILS % 91.3 % (39.0-77.0); PLATELET COUNT 388 10^3/UL (140-415); POSITIVE DIFF @See below; RED BLOOD COUNT 2.84 10^6/ul (4.70-6.10); RED CELL DISTRIBUTION WIDTH 16.2 % (11.5-14.5)
[2019-02-24 09:23] LABS: WHITE BLOOD COUNT 24.8 10^3/ul (4.8-10.8)
[2019-02-24 09:42] LABS: ALANINE AMINOTRANSFERASE < 6 IU/L (13-69); ALBUMIN 3.5 g/dl (3.3-4.9); ALBUMIN/GLOBULIN RATIO 0.92; ALKALINE PHOSPHATASE 123 IU/L (42-121); ANION GAP 18 (5-13); ASPARTATE AMINO TRANSFERASE 35 IU/L (15-46); BILIRUBIN,INDIRECT 0.5 mg/dl (0-1.1); BILIRUBIN,TOTAL 0.5 mg/dl (0.2-1.3); BLOOD UREA NITROGEN 96 mg/dl (7-20); CALCIUM 8.8 mg/dl (8.4-10.2); CARBON DIOXIDE 19 mmol/L (21-31); CHLORIDE 95 mmol/L (97-110); CREATININE 10.09 mg/dl (0.61-1.24); Estimated GFR 5 mL/min (>60); GLUCOSE 212 mg/dl (70-220); POTASSIUM 5.1 mmol/L (3.5-5.1); SODIUM 132 mmol/L (135-144); TOTAL PROTEIN 7.3 g/dl (6.1-8.1)
[2019-02-24] MEDS: ACETAMINOPHEN 325 MG TAB PO (14:55)
[2019-02-24] MEDS: HEPARIN 1000 UNITS/ML 10 ML INJ HE (16:15)
[2019-02-24] MEDS: ALTEPLASE (CATHFLO) 2 MG INJ CATHETER (18:59)
[2019-02-24] MEDS: ATORVASTATIN 40 MG TAB PO (21:37)
[2019-02-25] MEDS: ACCU-CHEK XX ×5 (02:00→20:27)
[2019-02-25 06:08] LABS: ADD MAN DIFF? NO
[2019-02-25 06:11] LABS: WHITE BLOOD COUNT 21.8 10^3/ul (4.8-10.8)
[2019-02-25 06:11] LABS: BASOPHIL # 0.1 10^3/ul (0.0-0.1); BASOPHILS % 0.3 % (0.0-2.0); EOSINOPHILS # 0.1 10^3/ul (0.0-0.5); EOSINOPHILS % 0.5 % (0.0-7.0); HEMATOCRIT 23.3 % (42.0-52.0); HEMOGLOBIN 7.7 g/dl (14.0-18.0); LYMPHOCYTES # 0.9 10^3/ul (0.8-2.9); LYMPHOCYTES % 3.9 % (15.0-51.0); MEAN CORPUSCULAR HEMOGLOBIN 28.7 pg (29.0-33.0); MEAN CORPUSCULAR VOLUME 86.9 fl (82.0-101.0); MEAN PLATELET VOLUME 11.1 fl (7.4-10.4); MONOCYTE # 1.4 10^3/ul (0.3-0.9); MONOCYTES % 6.3 % (0.0-11.0); NEUTROPHIL # 19.1 10^3/ul (1.6-7.5); NEUTROPHILS % 87.6 % (39.0-77.0); NUCLEATED RED BLOOD CELLS% 0.1 /100WBC (0.0-0.0); PLATELET COUNT 394 10^3/UL (140-415); RED BLOOD COUNT 2.68 10^6/ul (4.70-6.10); RED CELL DISTRIBUTION WIDTH 15.9 % (11.5-14.5)
[2019-02-25] MEDS ORDERED: MAGNESIUM HYDROXIDE 30ML CUP PO (06:30)
[2019-02-25 06:33] LABS: ANION GAP 18 (5-13); BLOOD UREA NITROGEN 82 mg/dl (7-20); CALCIUM 8.3 mg/dl (8.4-10.2); CARBON DIOXIDE 17 mmol/L (21-31); CHLORIDE 99 mmol/L (97-110); CREATININE 8.92 mg/dl (0.61-1.24); Estimated GFR 6 mL/min (>60); GLUCOSE 240 mg/dl (70-220); POTASSIUM 5.2 mmol/L (3.5-5.1); SODIUM 134 mmol/L (135-144)
[2019-02-25] MEDS: FUROSEMIDE 40 MG TAB PO ×2 (06:59→17:52)
[2019-02-25] MEDS: BALSAM PERU/CASTOR OIL 60 GM TUBE TOP (07:38)
[2019-02-25] MEDS: APIXABAN 5 MG TABLET PO ×2 (07:38→20:19)
[2019-02-25] MEDS: ASPIRIN 81 MG TAB PO (07:38)
[2019-02-25] MEDS: INSULIN ASPART [NOVOLOG] 3 ML PEN SC ×7 (07:43→20:19)
[2019-02-25] MEDS: INSULIN GLARGINE [LANTus] (100 UNITS/ML) SYG SC (08:45)
[2019-02-25] MEDS: FAMOTIDINE 20 MG TAB PO ×2 (09:00→20:19)
[2019-02-25] MEDS: PAROXETINE (CR) 12.5 MG TAB PO (11:43)
[2019-02-25] MEDS: ACETAMINOPHEN 325 MG TAB PO ×2 (12:03→20:19)
[2019-02-25] MEDS: ATORVASTATIN 40 MG TAB PO (20:19)
[2019-02-25] MEDS: OXYCODONE/ACETAMINOPHEN (5/325) TAB PO (23:59)
[2019-02-26] MEDS: ACCU-CHEK XX ×5 (02:00→21:00)
[2019-02-26 05:37] LABS: ADD MAN DIFF? NO
[2019-02-26] MEDS: FUROSEMIDE 40 MG TAB PO ×2 (05:41→17:00)
[2019-02-26 05:44] LABS: WHITE BLOOD COUNT 25.4 10^3/ul (4.8-10.8)
[2019-02-26 05:44] LABS: ABNORMAL IP MESSAGE 1; BASOPHIL # 0.1 10^3/ul (0.0-0.1); BASOPHILS % 0.4 % (0.0-2.0); EOSINOPHILS # 0.4 10^3/ul (0.0-0.5); EOSINOPHILS % 1.4 % (0.0-7.0); HEMATOCRIT 24.7 % (42.0-52.0); LYMPHOCYTES # 1.1 10^3/ul (0.8-2.9); LYMPHOCYTES % 4.4 % (15.0-51.0); MEAN CORPUSCULAR HEMOGLOBIN 28.2 pg (29.0-33.0); MEAN CORPUSCULAR HGB CONC 32.4 g/dl (32.0-37.0); MONOCYTE # 1.4 10^3/ul (0.3-0.9); MONOCYTES % 5.6 % (0.0-11.0); NEUTROPHIL # 22.2 10^3/ul (1.6-7.5); NEUTROPHILS % 87.1 % (39.0-77.0); PLATELET COUNT 471 10^3/UL (140-415); POSITIVE DIFF @See below; RED BLOOD COUNT 2.84 10^6/ul (4.70-6.10); RED CELL DISTRIBUTION WIDTH 16.2 % (11.5-14.5)
[2019-02-26 05:59] LABS: ANION GAP 17 (5-13); BLOOD UREA NITROGEN 100 mg/dl (7-20); CALCIUM 8.3 mg/dl (8.4-10.2); CARBON DIOXIDE 19 mmol/L (21-31); CHLORIDE 98 mmol/L (97-110); CREATININE 10.03 mg/dl (0.61-1.24); Estimated GFR 5 mL/min (>60); GLUCOSE 100 mg/dl (70-220); POTASSIUM 5.3 mmol/L (3.5-5.1); SODIUM 134 mmol/L (135-144)
[2019-02-26] MEDS: ASPIRIN 81 MG TAB PO (07:35)
[2019-02-26] MEDS: APIXABAN 5 MG TABLET PO ×2 (07:35→20:43)
[2019-02-26] MEDS: PAROXETINE (CR) 12.5 MG TAB PO (07:35)
[2019-02-26] MEDS: INSULIN ASPART [NOVOLOG] 3 ML PEN SC ×7 (07:35→20:43)
[2019-02-26] MEDS: FAMOTIDINE 20 MG TAB PO ×2 (07:35→20:43)
[2019-02-26] MEDS: BALSAM PERU/CASTOR OIL 60 GM TUBE TOP (07:36)
[2019-02-26] MEDS: INSULIN GLARGINE [LANTus] (100 UNITS/ML) SYG SC (07:40)
[2019-02-26] MEDS: HEPARIN 1000 UNITS/ML 10 ML INJ HE (13:36)
[2019-02-26] MEDS: ALBUMIN HUMAN 25% 100 ML IV (14:22)
[2019-02-26] MEDS: ALTEPLASE (CATHFLO) 2 MG INJ CATHETER (17:33)
[2019-02-26] MEDS: ATORVASTATIN 40 MG TAB PO (20:43)
[2019-02-27] MEDS: OXYCODONE/ACETAMINOPHEN (5/325) TAB PO (01:53)
[2019-02-27] MEDS: ACCU-CHEK XX ×5 (01:55→20:54)
[2019-02-27] MEDS: FUROSEMIDE 40 MG TAB PO ×2 (05:44→16:57)
[2019-02-27 06:14] LABS: WHITE BLOOD COUNT 31.5 10^3/ul (4.8-10.8)
[2019-02-27 06:14] LABS: ABNORMAL IP MESSAGE 1; HEMATOCRIT 26.4 % (42.0-52.0); HEMOGLOBIN 8.6 g/dl (14.0-18.0); MEAN CORPUSCULAR HGB CONC 32.6 g/dl (32.0-37.0); MEAN CORPUSCULAR VOLUME 88.9 fl (82.0-101.0); PLATELET COUNT 488 10^3/UL (140-415); POSITIVE DIFF @See below; RED BLOOD COUNT 2.97 10^6/ul (4.70-6.10); RED CELL DISTRIBUTION WIDTH 16.6 % (11.5-14.5)
[2019-02-27 06:23] LABS: ADD MAN DIFF? YES
[2019-02-27 06:25] LABS: ANION GAP 19 (5-13); BLOOD UREA NITROGEN 87 mg/dl (7-20); CALCIUM 8.6 mg/dl (8.4-10.2); CARBON DIOXIDE 18 mmol/L (21-31); CHLORIDE 100 mmol/L (97-110); CREATININE 9.01 mg/dl (0.61-1.24); Estimated GFR 6 mL/min (>60); GLUCOSE 121 mg/dl (70-220); SODIUM 137 mmol/L (135-144)
[2019-02-27] MEDS: APIXABAN 5 MG TABLET PO ×2 (07:49→20:50)
[2019-02-27] MEDS: FAMOTIDINE 20 MG TAB PO ×2 (07:49→20:50)
[2019-02-27] MEDS: ASPIRIN 81 MG TAB PO (07:49)
[2019-02-27] MEDS: PAROXETINE (CR) 12.5 MG TAB PO (07:49)
[2019-02-27] MEDS: BALSAM PERU/CASTOR OIL 60 GM TUBE TOP (07:50)
[2019-02-27] MEDS: INSULIN ASPART [NOVOLOG] 3 ML PEN SC ×7 (07:55→20:54)
[2019-02-27] MEDS: INSULIN GLARGINE [LANTus] (100 UNITS/ML) SYG SC (08:54)
[2019-02-27 09:45] LABS: ANISOCYTOSIS 2+ (0-0); BAND NEUTROPHILS #M 0.3 10^3/ul (0.0-0.6); BAND NEUTROPHILS % (M) 1 % (0-4); BURR CELLS 1+ (0-0); LYMPHOCYTES #M 1.5 10^3/ul (0.8-2.9); LYMPHOCYTES % (M) 5 % (15-51); MONOCYTE #M 1.5 10^3/ul (0.3-0.9); MONOCYTES % (M) 5 % (0-11); PLATELET ESTIMATE NORMAL; POIKILOCYTOSIS 3+ (0-0); POLYCHROMASIA 3+ (0-0); SEG NEUT #M 28.1 10^3/ul (1.6-7.5); SEGMENTED NEUTROPHILS (M) % 89 % (39-77); SMUDGE%M 15 % (0-0)
[2019-02-27] MEDS: ATORVASTATIN 40 MG TAB PO (20:50)
[2019-02-27] MEDS: ACETAMINOPHEN 325 MG TAB PO (20:50)
[2019-02-28] MEDS: OXYCODONE/ACETAMINOPHEN (5/325) TAB PO ×2 (00:19→03:47)
[2019-02-28] MEDS: ACCU-CHEK XX ×5 (01:51→21:11)
[2019-02-28 05:20] LABS: ADD MAN DIFF? NO
[2019-02-28 05:37] LABS: ABNORMAL IP MESSAGE 1; BASOPHIL # 0.1 10^3/ul (0.0-0.1); BASOPHILS % 0.3 % (0.0-2.0); EOSINOPHILS # 0.2 10^3/ul (0.0-0.5); EOSINOPHILS % 0.9 % (0.0-7.0); HEMATOCRIT 23.8 % (42.0-52.0); HEMOGLOBIN 7.9 g/dl (14.0-18.0); LYMPHOCYTES % 3.8 % (15.0-51.0); MEAN CORPUSCULAR HEMOGLOBIN 28.9 pg (29.0-33.0); MEAN CORPUSCULAR HGB CONC 33.2 g/dl (32.0-37.0); MEAN CORPUSCULAR VOLUME 87.2 fl (82.0-101.0); MEAN PLATELET VOLUME 10.8 fl (7.4-10.4); MONOCYTE # 1.3 10^3/ul (0.3-0.9); NEUTROPHIL # 22.7 10^3/ul (1.6-7.5); NEUTROPHILS % 88.7 % (39.0-77.0); PLATELET COUNT 476 10^3/UL (140-415); POSITIVE DIFF @See below; RED BLOOD COUNT 2.73 10^6/ul (4.70-6.10); RED CELL DISTRIBUTION WIDTH 16.6 % (11.5-14.5)
[2019-02-28 05:37] LABS: WHITE BLOOD COUNT 25.7 10^3/ul (4.8-10.8)
[2019-02-28 05:51] LABS: ANION GAP 18 (5-13); BLOOD UREA NITROGEN 106 mg/dl (7-20); CALCIUM 8.2 mg/dl (8.4-10.2); CARBON DIOXIDE 17 mmol/L (21-31); CHLORIDE 97 mmol/L (97-110); CREATININE 9.92 mg/dl (0.61-1.24); Estimated GFR 5 mL/min (>60); GLUCOSE 131 mg/dl (70-220); POTASSIUM 4.9 mmol/L (3.5-5.1); SODIUM 132 mmol/L (135-144)
[2019-02-28] MEDS: FUROSEMIDE 40 MG TAB PO ×2 (06:28→17:51)
[2019-02-28] MEDS: INSULIN ASPART [NOVOLOG] 3 ML PEN SC ×7 (08:00→21:00)
[2019-02-28] MEDS: ASPIRIN 81 MG TAB PO (08:59)
[2019-02-28] MEDS: APIXABAN 5 MG TABLET PO ×2 (09:00→21:03)
[2019-02-28] MEDS: FAMOTIDINE 20 MG TAB PO ×2 (09:00→21:03)
[2019-02-28] MEDS: PAROXETINE (CR) 12.5 MG TAB PO (09:00)
[2019-02-28] MEDS: INSULIN GLARGINE [LANTus] (100 UNITS/ML) SYG SC (09:04)
[2019-02-28] MEDS: BALSAM PERU/CASTOR OIL 60 GM TUBE TOP (09:58)
[2019-02-28] MEDS: ACETAMINOPHEN 325 MG TAB PO ×2 (09:59→21:48)
[2019-02-28] MEDS: ATORVASTATIN 40 MG TAB PO (21:04)
[2019-03-01] MEDS: OXYCODONE/ACETAMINOPHEN (5/325) TAB PO (01:38)
[2019-03-01] MEDS: ACCU-CHEK XX ×5 (02:00→21:00)
[2019-03-01 06:12] LABS: ADD MAN DIFF? NO
[2019-03-01 06:19] LABS: BASOPHIL # 0.1 10^3/ul (0.0-0.1); BASOPHILS % 0.3 % (0.0-2.0); EOSINOPHILS # 0.3 10^3/ul (0.0-0.5); EOSINOPHILS % 1.5 % (0.0-7.0); HEMATOCRIT 23.9 % (42.0-52.0); HEMOGLOBIN 7.8 g/dl (14.0-18.0); LYMPHOCYTES # 1.2 10^3/ul (0.8-2.9); LYMPHOCYTES % 5.5 % (15.0-51.0); MEAN CORPUSCULAR HEMOGLOBIN 28.1 pg (29.0-33.0); MEAN CORPUSCULAR HGB CONC 32.6 g/dl (32.0-37.0); MEAN PLATELET VOLUME 10.6 fl (7.4-10.4); MONOCYTE # 1.3 10^3/ul (0.3-0.9); MONOCYTES % 5.9 % (0.0-11.0); NEUTROPHIL # 18.1 10^3/ul (1.6-7.5); NEUTROPHILS % 85.2 % (39.0-77.0); PLATELET COUNT 539 10^3/UL (140-415); RED BLOOD COUNT 2.78 10^6/ul (4.70-6.10); RED CELL DISTRIBUTION WIDTH 16.5 % (11.5-14.5)
[2019-03-01 06:19] LABS: WHITE BLOOD COUNT 21.3 10^3/ul (4.8-10.8)
[2019-03-01 06:40] LABS: ANION GAP 18 (5-13); CALCIUM 8.3 mg/dl (8.4-10.2); CARBON DIOXIDE 19 mmol/L (21-31); CHLORIDE 96 mmol/L (97-110); CREATININE 11.02 mg/dl (0.61-1.24); Estimated GFR 5 mL/min (>60); GLUCOSE 91 mg/dl (70-220); POTASSIUM 5.3 mmol/L (3.5-5.1); SODIUM 133 mmol/L (135-144)
[2019-03-01 06:53] LABS: BLOOD UREA NITROGEN 121 mg/dl (7-20)
[2019-03-01] MEDS: INSULIN ASPART [NOVOLOG] 3 ML PEN SC ×7 (08:00→21:00)
[2019-03-01] MEDS: FUROSEMIDE 40 MG TAB PO (09:00)
[2019-03-01] MEDS: ASPIRIN 81 MG TAB PO (09:00)
[2019-03-01] MEDS: HEPARIN 1000 UNITS/ML 10 ML INJ HE ×2 (10:37→10:38)
[2019-03-01] MEDS: INSULIN GLARGINE [LANTus] (100 UNITS/ML) SYG SC (10:45)
[2019-03-01] MEDS: ALBUMIN HUMAN 25% 100 ML IV (11:21)
[2019-03-01] MEDS: ALTEPLASE (CATHFLO) 2 MG INJ CATHETER (13:02)
[2019-03-01] MEDS: PAROXETINE (CR) 12.5 MG TAB PO (14:09)
[2019-03-01] MEDS: FAMOTIDINE 20 MG TAB PO ×2 (14:10→20:54)
[2019-03-01] MEDS: BALSAM PERU/CASTOR OIL 60 GM TUBE TOP (14:12)
[2019-03-01] MEDS ORDERED: ONDANSETRON 4 MG TAB PO (17:30)
[2019-03-01] MEDS: GLUCOSE GEL 15 GRAM TUBE BUCCAL (18:52)
[2019-03-01] MEDS: ATORVASTATIN 40 MG TAB PO (20:54)
[2019-03-02] MEDS: INSULIN ASPART [NOVOLOG] 3 ML PEN SC ×7 (08:00→21:25)
[2019-03-02] MEDS: INSULIN GLARGINE [LANTus] (100 UNITS/ML) SYG SC (09:30)
[2019-03-02] MEDS: ACCU-CHEK XX ×4 (09:33→21:00)
[2019-03-02] MEDS: ASPIRIN 81 MG TAB PO (09:33)
[2019-03-02] MEDS: PAROXETINE (CR) 12.5 MG TAB PO (09:33)
[2019-03-02] MEDS: FAMOTIDINE 20 MG TAB PO ×2 (09:33→21:15)
[2019-03-02] MEDS: FUROSEMIDE 40 MG TAB PO (09:33)
[2019-03-02] MEDS: BALSAM PERU/CASTOR OIL 60 GM TUBE TOP (09:34)
[2019-03-02] MEDS: ONDANSETRON 4 MG INJ IV (12:10)
[2019-03-02] MEDS: ATORVASTATIN 40 MG TAB PO (21:15)
[2019-03-03] MEDS: HEPARIN 1000 UNITS/ML 10 ML INJ HE (07:53)
[2019-03-03] MEDS: ACCU-CHEK XX ×4 (07:54→21:20)
[2019-03-03] MEDS: INSULIN GLARGINE [LANTus] (100 UNITS/ML) SYG SC (07:59)
[2019-03-03] MEDS: INSULIN ASPART [NOVOLOG] 3 ML PEN SC ×9 (07:59→21:19)
[2019-03-03] MEDS: FAMOTIDINE 20 MG TAB PO ×2 (09:00→20:49)
[2019-03-03] MEDS: FUROSEMIDE 40 MG TAB PO (09:00)
[2019-03-03] MEDS: ASPIRIN 81 MG TAB PO (09:00)
[2019-03-03] MEDS: PAROXETINE (CR) 12.5 MG TAB PO ×2 (09:00→13:37)
[2019-03-03] MEDS: BALSAM PERU/CASTOR OIL 60 GM TUBE TOP (10:12)
[2019-03-03] MEDS: ALTEPLASE (CATHFLO) 2 MG INJ CATHETER (11:10)
[2019-03-03] MEDS: ATORVASTATIN 40 MG TAB PO (20:49)
[2019-03-03] MEDS: EPOETIN ALFA-EPBX (ESRD) 10,000 UNIT/ML VIAL SC (23:42)
[2019-03-04] MEDS: OXYCODONE/ACETAMINOPHEN (5/325) TAB PO (02:41)
[2019-03-04] MEDS: ACCU-CHEK XX ×4 (07:36→21:27)
[2019-03-04] MEDS: INSULIN ASPART [NOVOLOG] 3 ML PEN SC ×7 (08:00→21:00)
[2019-03-04] MEDS: INSULIN GLARGINE [LANTus] (100 UNITS/ML) SYG SC (08:20)
[2019-03-04] MEDS: BALSAM PERU/CASTOR OIL 60 GM TUBE TOP (08:21)
[2019-03-04] MEDS: FUROSEMIDE 40 MG TAB PO (08:50)
[2019-03-04] MEDS: PAROXETINE (CR) 12.5 MG TAB PO (08:50)
[2019-03-04] MEDS: FAMOTIDINE 20 MG TAB PO ×2 (08:50→20:10)
[2019-03-04] MEDS: ASPIRIN 81 MG TAB PO (08:50)
[2019-03-04] MEDS: VANCOMYCIN 1 GM 250 ML IVPB (15:00)
[2019-03-04] MEDS: ATORVASTATIN 40 MG TAB PO (20:10)
[2019-03-05] MEDS: ACCU-CHEK XX ×4 (07:00→21:00)
[2019-03-05] MEDS: INSULIN ASPART [NOVOLOG] 3 ML PEN SC ×8 (07:49→21:00)
[2019-03-05] MEDS: PAROXETINE (CR) 12.5 MG TAB PO (08:28)
[2019-03-05] MEDS: FUROSEMIDE 40 MG TAB PO (08:29)
[2019-03-05] MEDS: ASPIRIN 81 MG TAB PO (08:29)
[2019-03-05] MEDS: FAMOTIDINE 20 MG TAB PO ×2 (08:29→21:06)
[2019-03-05] MEDS: BALSAM PERU/CASTOR OIL 60 GM TUBE TOP (08:32)
[2019-03-05] MEDS: INSULIN GLARGINE [LANTus] (100 UNITS/ML) SYG SC (08:38)
[2019-03-05] MEDS ORDERED: APIXABAN 5 MG TABLET PO (09:00)
[2019-03-05] MEDS: GUAIFENESIN/DM 5ML CUP PO (11:17)
[2019-03-05] MEDS: HEPARIN 1000 UNITS/ML 10 ML INJ HE (15:10)
[2019-03-05] MEDS: EPOETIN ALFA-EPBX (ESRD) 10,000 UNIT/ML VIAL SC (17:01)
[2019-03-05] MEDS: ALTEPLASE (CATHFLO) 2 MG INJ CATHETER (18:17)
[2019-03-05] MEDS: ATORVASTATIN 40 MG TAB PO (21:06)
[2019-03-06] MEDS: OXYCODONE/ACETAMINOPHEN (5/325) TAB PO (01:03)
[2019-03-06] MEDS: ACCU-CHEK XX ×4 (07:00→21:00)
[2019-03-06] MEDS: INSULIN ASPART [NOVOLOG] 3 ML PEN SC ×7 (08:00→21:00)
[2019-03-06] MEDS: PAROXETINE (CR) 12.5 MG TAB PO (09:08)
[2019-03-06] MEDS: ASPIRIN 81 MG TAB PO (09:08)
[2019-03-06] MEDS: FUROSEMIDE 40 MG TAB PO (09:10)
[2019-03-06] MEDS: FAMOTIDINE 20 MG TAB PO (09:10)
[2019-03-06] MEDS: LOPERAMIDE 2 MG CAP PO (13:49)
[2019-03-06] MEDS: GUAIFENESIN/DM 5ML CUP PO (15:49)
[2019-03-06] MEDS: BALSAM PERU/CASTOR OIL 60 GM TUBE TOP (17:15)
[2019-03-06] MEDS: VANCOMYCIN HCL 250 MG/5ML POSYG PO (19:30)
[2019-03-06] MEDS: ALBUMIN HUMAN 25% 100 ML IV (21:21)
[2019-03-06] MEDS: HEPARIN 1000 UNITS/ML 10 ML INJ HE (21:29)
[2019-03-07] MEDS: FAMOTIDINE 20 MG TAB PO ×3 (00:17→20:36)
[2019-03-07] MEDS: ATORVASTATIN 40 MG TAB PO ×2 (00:17→20:36)
[2019-03-07] MEDS: VANCOMYCIN HCL 250 MG/5ML POSYG PO ×4 (00:18→05:40)
[2019-03-07] MEDS: ALTEPLASE (CATHFLO) 2 MG INJ CATHETER (00:25)
[2019-03-07] MEDS: OXYCODONE/ACETAMINOPHEN (5/325) TAB PO ×2 (05:39→23:38)
[2019-03-07] MEDS: ACCU-CHEK XX ×4 (07:00→21:00)
[2019-03-07] MEDS: INSULIN ASPART [NOVOLOG] 3 ML PEN SC ×7 (08:00→20:36)
[2019-03-07] MEDS: PAROXETINE (CR) 12.5 MG TAB PO (08:39)
[2019-03-07] MEDS: ASPIRIN 81 MG TAB PO (08:39)
[2019-03-07] MEDS: BALSAM PERU/CASTOR OIL 60 GM TUBE TOP (08:40)
[2019-03-07] MEDS: INSULIN GLARGINE [LANTus] (100 UNITS/ML) SYG SC (08:44)
[2019-03-07] MEDS: FUROSEMIDE 40 MG TAB PO (12:51)
[2019-03-08 06:22] LABS: HEMOGLOBIN 8.7 g/dl (14.0-18.0)
[2019-03-08] MEDS: ACCU-CHEK XX ×4 (07:38→21:00)
[2019-03-08] MEDS: INSULIN ASPART [NOVOLOG] 3 ML PEN SC ×7 (08:07→21:00)
[2019-03-08] MEDS: INSULIN GLARGINE [LANTus] (100 UNITS/ML) SYG SC (08:08)
[2019-03-08] MEDS: FUROSEMIDE 40 MG TAB PO (08:09)
[2019-03-08] MEDS: FAMOTIDINE 20 MG TAB PO ×2 (08:09→21:12)
[2019-03-08] MEDS: ASPIRIN 81 MG TAB PO (08:09)
[2019-03-08] MEDS: PAROXETINE (CR) 12.5 MG TAB PO (08:09)
[2019-03-08] MEDS: BALSAM PERU/CASTOR OIL 60 GM TUBE TOP (08:12)
[2019-03-08] MEDS: PIPER-TAZO 2.25 GM (PMX) 50 ML IVPB ×2 (12:53→21:11)
[2019-03-08] MEDS: HEPARIN 1000 UNITS/ML 10 ML INJ HE (14:43)
[2019-03-08] MEDS: ALTEPLASE (CATHFLO) 2 MG INJ CATHETER (14:59)
[2019-03-08 17:16] LABS: WHITE BLOOD COUNT 20.7 10^3/ul (4.8-10.8)
[2019-03-08 17:16] LABS: HEMATOCRIT 28.5 % (42.0-52.0); HEMOGLOBIN 9.1 g/dl (14.0-18.0); MEAN CORPUSCULAR HEMOGLOBIN 27.5 pg (29.0-33.0); MEAN CORPUSCULAR HGB CONC 31.9 g/dl (32.0-37.0); MEAN CORPUSCULAR VOLUME 86.1 fl (82.0-101.0); MEAN PLATELET VOLUME 10.8 fl (7.4-10.4); POSITIVE DIFF @See below; RED BLOOD COUNT 3.31 10^6/ul (4.70-6.10); RED CELL DISTRIBUTION WIDTH 17.5 % (11.5-14.5)
[2019-03-08 17:23] LABS: PLATELET COUNT 247 10^3/UL (140-415)
[2019-03-08 17:24] LABS: ADD MAN DIFF? YES
[2019-03-08] MEDS: EPOETIN ALFA-EPBX (ESRD) 10,000 UNIT/ML VIAL SC (17:44)
[2019-03-08 17:45] LABS: ALANINE AMINOTRANSFERASE 22 IU/L (13-69); ALBUMIN 3.4 g/dl (3.3-4.9); ALBUMIN/GLOBULIN RATIO 0.72; ALKALINE PHOSPHATASE 245 IU/L (42-121); ANION GAP 19 (5-13); ASPARTATE AMINO TRANSFERASE 31 IU/L (15-46); BILIRUBIN,INDIRECT 0.5 mg/dl (0-1.1); BILIRUBIN,TOTAL 0.5 mg/dl (0.2-1.3); BLOOD UREA NITROGEN 81 mg/dl (7-20); CALCIUM 7.8 mg/dl (8.4-10.2); CARBON DIOXIDE 20 mmol/L (21-31); CHLORIDE 94 mmol/L (97-110); CREATININE 7.78 mg/dl (0.61-1.24); Estimated GFR 7 mL/min (>60); GLUCOSE 190 mg/dl (70-220); SODIUM 133 mmol/L (135-144); TOTAL PROTEIN 8.1 g/dl (6.1-8.1)
[2019-03-08 18:28] LABS: EOSINOPHILS % (M) 3 % (0-7); LYMPHOCYTES #M 1.6 10^3/ul (0.8-2.9); LYMPHOCYTES % (M) 8 % (15-51); MONOCYTE #M 0.8 10^3/ul (0.3-0.9); MONOCYTES % (M) 4 % (0-11); PLATELET ESTIMATE NORMAL; POLYCHROMASIA 1+ (0-0); SEGMENTED NEUTROPHILS (M) % 85 % (39-77); SMUDGE%M 2 % (0-0)
[2019-03-08] MEDS: APIXABAN 5 MG TABLET PO (21:12)
[2019-03-08] MEDS: ATORVASTATIN 40 MG TAB PO (21:12)
[2019-03-09] MEDS: ACCU-CHEK XX ×4 (07:30→21:00)
[2019-03-09] MEDS: INSULIN ASPART [NOVOLOG] 3 ML PEN SC ×7 (08:00→21:00)
[2019-03-09] MEDS: BALSAM PERU/CASTOR OIL 60 GM TUBE TOP (08:07)
[2019-03-09] MEDS: INSULIN GLARGINE [LANTus] (100 UNITS/ML) SYG SC (08:10)
[2019-03-09] MEDS: PAROXETINE (CR) 12.5 MG TAB PO (10:07)
[2019-03-09] MEDS: FAMOTIDINE 20 MG TAB PO ×2 (10:07→21:09)
[2019-03-09] MEDS: APIXABAN 5 MG TABLET PO ×2 (10:07→21:09)
[2019-03-09] MEDS: ASPIRIN 81 MG TAB PO (10:08)
[2019-03-09] MEDS: FUROSEMIDE 40 MG TAB PO (10:08)
[2019-03-09] MEDS: PIPER-TAZO 2.25 GM (PMX) 50 ML IVPB (10:20)
[2019-03-09 11:04] LABS: ADD MAN DIFF? NO
[2019-03-09 11:13] LABS: BASOPHIL # 0.1 10^3/ul (0.0-0.1); BASOPHILS % 0.3 % (0.0-2.0); EOSINOPHILS # 0.2 10^3/ul (0.0-0.5); EOSINOPHILS % 0.8 % (0.0-7.0); HEMATOCRIT 27.5 % (42.0-52.0); HEMOGLOBIN 8.6 g/dl (14.0-18.0); LYMPHOCYTES # 1.1 10^3/ul (0.8-2.9); LYMPHOCYTES % 5.5 % (15.0-51.0); MEAN CORPUSCULAR HGB CONC 31.3 g/dl (32.0-37.0); MEAN CORPUSCULAR VOLUME 86.2 fl (82.0-101.0); MEAN PLATELET VOLUME 10.3 fl (7.4-10.4); MONOCYTES % 5.4 % (0.0-11.0); NEUTROPHIL # 16.8 10^3/ul (1.6-7.5); NEUTROPHILS % 86.9 % (39.0-77.0); PLATELET COUNT 318 10^3/UL (140-415); RED BLOOD COUNT 3.19 10^6/ul (4.70-6.10); RED CELL DISTRIBUTION WIDTH 17.3 % (11.5-14.5)
[2019-03-09 11:13] LABS: WHITE BLOOD COUNT 19.3 10^3/ul (4.8-10.8)
[2019-03-09 11:34] LABS: ANION GAP 18 (5-13); BLOOD UREA NITROGEN 91 mg/dl (7-20); CALCIUM 7.6 mg/dl (8.4-10.2); CARBON DIOXIDE 19 mmol/L (21-31); CHLORIDE 95 mmol/L (97-110); CREATININE 9.15 mg/dl (0.61-1.24); Estimated GFR 6 mL/min (>60); GLUCOSE 140 mg/dl (70-220); POTASSIUM 4.9 mmol/L (3.5-5.1); SODIUM 132 mmol/L (135-144)
[2019-03-09] MEDS: ATORVASTATIN 40 MG TAB PO (21:09)
[2019-03-10] MEDS: CIPROFLOXACIN 500 MG TAB GTB (05:42)
[2019-03-10] MEDS: ACCU-CHEK XX ×4 (07:30→20:20)
[2019-03-10] MEDS: INSULIN ASPART [NOVOLOG] 3 ML PEN SC ×7 (07:35→20:20)
[2019-03-10] MEDS: PAROXETINE (CR) 12.5 MG TAB PO (08:55)
[2019-03-10] MEDS: FAMOTIDINE 20 MG TAB PO ×2 (08:56→20:20)
[2019-03-10] MEDS: ASPIRIN 81 MG TAB PO (08:56)
[2019-03-10] MEDS: APIXABAN 5 MG TABLET PO ×2 (08:56→20:20)
[2019-03-10] MEDS: FUROSEMIDE 40 MG TAB PO (08:57)
[2019-03-10] MEDS: INSULIN GLARGINE [LANTus] (100 UNITS/ML) SYG SC (08:59)
[2019-03-10] MEDS: BALSAM PERU/CASTOR OIL 60 GM TUBE TOP (12:47)
[2019-03-10] MEDS: HEPARIN 1000 UNITS/ML 10 ML INJ HE ×2 (14:26→14:31)
[2019-03-10 15:12] LABS: ADD MAN DIFF? NO
[2019-03-10 15:14] LABS: BASOPHIL # 0.1 10^3/ul (0.0-0.1); BASOPHILS % 0.2 % (0.0-2.0); EOSINOPHILS # 0.2 10^3/ul (0.0-0.5); EOSINOPHILS % 0.9 % (0.0-7.0); HEMATOCRIT 28.8 % (42.0-52.0); LYMPHOCYTES # 1.1 10^3/ul (0.8-2.9); MEAN CORPUSCULAR HEMOGLOBIN 26.9 pg (29.0-33.0); MEAN CORPUSCULAR HGB CONC 31.3 g/dl (32.0-37.0); MEAN PLATELET VOLUME 9.8 fl (7.4-10.4); MONOCYTE # 0.8 10^3/ul (0.3-0.9); MONOCYTES % 3.5 % (0.0-11.0); NEUTROPHIL # 19.6 10^3/ul (1.6-7.5); NEUTROPHILS % 89.9 % (39.0-77.0); PLATELET COUNT 394 10^3/UL (140-415); RED BLOOD COUNT 3.35 10^6/ul (4.70-6.10); RED CELL DISTRIBUTION WIDTH 17.5 % (11.5-14.5)
[2019-03-10 15:14] LABS: WHITE BLOOD COUNT 21.8 10^3/ul (4.8-10.8)
[2019-03-10 15:36] LABS: ANION GAP 9 (5-13); BLOOD UREA NITROGEN 15 mg/dl (7-20); CARBON DIOXIDE 31 mmol/L (21-31); CHLORIDE 103 mmol/L (97-110); CREATININE 2.04 mg/dl (0.61-1.24); Estimated GFR 33 mL/min (>60); GLUCOSE 106 mg/dl (70-220); SODIUM 143 mmol/L (135-144)
[2019-03-10 15:54] LABS: POTASSIUM 2.4 mmol/L (3.5-5.1)
[2019-03-10] MEDS: ALTEPLASE (CATHFLO) 2 MG INJ CATHETER (17:29)
[2019-03-10] MEDS: EPOETIN ALFA-EPBX (ESRD) 10,000 UNIT/ML VIAL SC (18:17)
[2019-03-10 18:38] LABS: HEPATITIS B SURFACE ANTIGEN NEGATIVE (NEGATIVE)
[2019-03-10] MEDS: ATORVASTATIN 40 MG TAB PO (20:20)
[2019-03-10 20:41] LABS: POTASSIUM 4.7 mmol/L (3.5-5.1)
[2019-03-11] MEDS: CIPROFLOXACIN 500 MG TAB GTB (06:19)
[2019-03-11 07:29] LABS: ADD MAN DIFF? NO
[2019-03-11 07:38] LABS: WHITE BLOOD COUNT 16.4 10^3/ul (4.8-10.8)
[2019-03-11 07:39] LABS: BASOPHIL # 0.1 10^3/ul (0.0-0.1); BASOPHILS % 0.3 % (0.0-2.0); EOSINOPHILS # 0.1 10^3/ul (0.0-0.5); EOSINOPHILS % 0.4 % (0.0-7.0); HEMOGLOBIN 7.8 g/dl (14.0-18.0); LYMPHOCYTES % 6.3 % (15.0-51.0); MEAN CORPUSCULAR HEMOGLOBIN 26.9 pg (29.0-33.0); MEAN CORPUSCULAR HGB CONC 31.2 g/dl (32.0-37.0); MEAN CORPUSCULAR VOLUME 86.2 fl (82.0-101.0); MEAN PLATELET VOLUME 10.2 fl (7.4-10.4); MONOCYTE # 1.1 10^3/ul (0.3-0.9); MONOCYTES % 6.7 % (0.0-11.0); NEUTROPHILS % 85.4 % (39.0-77.0); PLATELET COUNT 316 10^3/UL (140-415); RED CELL DISTRIBUTION WIDTH 17.3 % (11.5-14.5)
[2019-03-11] MEDS: ACCU-CHEK XX ×4 (07:45→20:15)
[2019-03-11] MEDS: INSULIN ASPART [NOVOLOG] 3 ML PEN SC ×7 (07:50→20:15)
[2019-03-11] MEDS: INSULIN GLARGINE [LANTus] (100 UNITS/ML) SYG SC (07:50)
[2019-03-11 08:04] LABS: ANION GAP 18 (5-13); BLOOD UREA NITROGEN 93 mg/dl (7-20); CALCIUM 7.1 mg/dl (8.4-10.2); CARBON DIOXIDE 17 mmol/L (21-31); CHLORIDE 97 mmol/L (97-110); Estimated GFR 6 mL/min (>60); GLUCOSE 175 mg/dl (70-220); POTASSIUM 4.8 mmol/L (3.5-5.1); SODIUM 132 mmol/L (135-144)
[2019-03-11] MEDS: PAROXETINE (CR) 12.5 MG TAB PO (08:09)
[2019-03-11] MEDS: ASPIRIN 81 MG TAB PO (08:09)
[2019-03-11] MEDS: FAMOTIDINE 20 MG TAB PO ×2 (08:09→20:15)
[2019-03-11] MEDS: BALSAM PERU/CASTOR OIL 60 GM TUBE TOP (08:10)
[2019-03-11] MEDS: APIXABAN 5 MG TABLET PO ×2 (08:10→20:15)
[2019-03-11 08:11] LABS: PHOSPHORUS 9.4 mg/dl (2.5-4.9)
[2019-03-11 08:11] LABS: MAGNESIUM 2.3 mg/dl (1.7-2.5)
[2019-03-11] MEDS: FUROSEMIDE 40 MG TAB PO (08:11)
[2019-03-11] MEDS: ATORVASTATIN 40 MG TAB PO (20:15)
[2019-03-12] MEDS: CIPROFLOXACIN 500 MG TAB GTB (06:02)
[2019-03-12] MEDS: ACCU-CHEK XX ×4 (07:25→21:55)
[2019-03-12] MEDS: INSULIN ASPART [NOVOLOG] 3 ML PEN SC ×7 (07:55→21:00)
[2019-03-12] MEDS: ALBUMIN HUMAN 25% 100 ML IV (08:22)
[2019-03-12] MEDS: FUROSEMIDE 40 MG TAB PO (09:00)
[2019-03-12] MEDS: BALSAM PERU/CASTOR OIL 60 GM TUBE TOP (09:00)
[2019-03-12] MEDS: ALTEPLASE (CATHFLO) 2 MG INJ CATHETER (10:19)
[2019-03-12] MEDS: HEPARIN 1000 UNITS/ML 10 ML INJ HE ×2 (10:21)
[2019-03-12] MEDS: APIXABAN 5 MG TABLET PO ×2 (10:30→21:51)
[2019-03-12] MEDS: PAROXETINE (CR) 12.5 MG TAB PO (10:31)
[2019-03-12] MEDS: ASPIRIN 81 MG TAB PO (10:31)
[2019-03-12] MEDS: FAMOTIDINE 20 MG TAB PO ×2 (10:31→21:51)
[2019-03-12] MEDS: INSULIN GLARGINE [LANTus] (100 UNITS/ML) SYG SC (10:48)
[2019-03-12 14:37] LABS: ADD MAN DIFF? NO
[2019-03-12 14:38] LABS: WHITE BLOOD COUNT 17.4 10^3/ul (4.8-10.8)
[2019-03-12 14:38] LABS: BASOPHILS % 0.2 % (0.0-2.0); EOSINOPHILS % 0.2 % (0.0-7.0); HEMATOCRIT 24.5 % (42.0-52.0); HEMOGLOBIN 7.7 g/dl (14.0-18.0); LYMPHOCYTES # 0.9 10^3/ul (0.8-2.9); LYMPHOCYTES % 5.4 % (15.0-51.0); MEAN CORPUSCULAR HEMOGLOBIN 26.8 pg (29.0-33.0); MEAN CORPUSCULAR HGB CONC 31.4 g/dl (32.0-37.0); MEAN CORPUSCULAR VOLUME 85.4 fl (82.0-101.0); MONOCYTE # 0.9 10^3/ul (0.3-0.9); MONOCYTES % 5.1 % (0.0-11.0); NEUTROPHIL # 15.3 10^3/ul (1.6-7.5); NEUTROPHILS % 88.3 % (39.0-77.0); PLATELET COUNT 360 10^3/UL (140-415); RED BLOOD COUNT 2.87 10^6/ul (4.70-6.10); RED CELL DISTRIBUTION WIDTH 17.2 % (11.5-14.5)
[2019-03-12 15:06] LABS: ANION GAP 17 (5-13); BLOOD UREA NITROGEN 66 mg/dl (7-20); CALCIUM 7.8 mg/dl (8.4-10.2); CARBON DIOXIDE 20 mmol/L (21-31); CHLORIDE 97 mmol/L (97-110); CREATININE 7.54 mg/dl (0.61-1.24); Estimated GFR 7 mL/min (>60); GLUCOSE 136 mg/dl (70-220); POTASSIUM 4.3 mmol/L (3.5-5.1); SODIUM 134 mmol/L (135-144)
[2019-03-12 15:07] LABS: MAGNESIUM 2.1 mg/dl (1.7-2.5)
[2019-03-12 15:07] LABS: PHOSPHORUS 7.1 mg/dl (2.5-4.9)
[2019-03-12] MEDS: EPOETIN ALFA-EPBX (ESRD) 10,000 UNIT/ML VIAL SC (17:53)
[2019-03-12] MEDS: ATORVASTATIN 40 MG TAB PO (21:50)
[2019-03-13] MEDS: OXYCODONE/ACETAMINOPHEN (5/325) TAB PO (01:19)
[2019-03-13] MEDS: ACETAMINOPHEN 325 MG TAB PO (04:02)
[2019-03-13] MEDS: ACCU-CHEK XX ×4 (07:54→20:47)
[2019-03-13 08:00] LABS: ADD MAN DIFF? NO
[2019-03-13] MEDS: FUROSEMIDE 40 MG TAB PO (08:12)
[2019-03-13] MEDS: ASPIRIN 81 MG TAB PO (08:12)
[2019-03-13] MEDS: FAMOTIDINE 20 MG TAB PO ×2 (08:12→21:50)
[2019-03-13] MEDS: APIXABAN 5 MG TABLET PO ×2 (08:13→21:50)
[2019-03-13] MEDS: BALSAM PERU/CASTOR OIL 60 GM TUBE TOP (08:13)
[2019-03-13 08:54] LABS: ANION GAP 20 (5-13); BLOOD UREA NITROGEN 83 mg/dl (7-20); CALCIUM 7.5 mg/dl (8.4-10.2); CARBON DIOXIDE 16 mmol/L (21-31); CHLORIDE 95 mmol/L (97-110); Estimated GFR 6 mL/min (>60); GLUCOSE 251 mg/dl (70-220); POTASSIUM 4.9 mmol/L (3.5-5.1); SODIUM 131 mmol/L (135-144)
[2019-03-13 09:02] LABS: BASOPHIL # 0.1 10^3/ul (0.0-0.1); BASOPHILS % 0.4 % (0.0-2.0); EOSINOPHILS # 0.1 10^3/ul (0.0-0.5); EOSINOPHILS % 0.6 % (0.0-7.0); HEMATOCRIT 27.8 % (42.0-52.0); HEMOGLOBIN 8.7 g/dl (14.0-18.0); LYMPHOCYTES # 1.4 10^3/ul (0.8-2.9); LYMPHOCYTES % 10.1 % (15.0-51.0); MEAN CORPUSCULAR HEMOGLOBIN 26.7 pg (29.0-33.0); MEAN CORPUSCULAR HGB CONC 31.3 g/dl (32.0-37.0); MEAN CORPUSCULAR VOLUME 85.3 fl (82.0-101.0); MEAN PLATELET VOLUME 10.3 fl (7.4-10.4); MONOCYTE # 1.1 10^3/ul (0.3-0.9); MONOCYTES % 7.9 % (0.0-11.0); NEUTROPHIL # 11.3 10^3/ul (1.6-7.5); NEUTROPHILS % 79.4 % (39.0-77.0); PLATELET COUNT 337 10^3/UL (140-415); RED BLOOD COUNT 3.26 10^6/ul (4.70-6.10); RED CELL DISTRIBUTION WIDTH 17.1 % (11.5-14.5)
[2019-03-13 09:02] LABS: WHITE BLOOD COUNT 14.3 10^3/ul (4.8-10.8)
[2019-03-13 09:10] LABS: MAGNESIUM 2.2 mg/dl (1.7-2.5)
[2019-03-13 09:10] LABS: PHOSPHORUS 8.8 mg/dl (2.5-4.9)
[2019-03-13 09:57] LABS: ANISOCYTOSIS 1+ (0-0); BAND NEUTROPHILS #M 0.1 10^3/ul (0.0-0.6); BAND NEUTROPHILS % (M) 1 % (0-4); BURR CELLS 1+ (0-0); HYPOCHROMASIA 1+ (0-0); LYMPHOCYTES #M 1.5 10^3/ul (0.8-2.9); LYMPHOCYTES % (M) 11 % (15-51); MONOCYTES % (M) 7 % (0-11); PLATELET ESTIMATE NORMAL; POIKILOCYTOSIS 1+ (0-0); POLYCHROMASIA 3+ (0-0); SEG NEUT #M 11.6 10^3/ul (1.6-7.5); SEGMENTED NEUTROPHILS (M) % 81 % (39-77); SMUDGE%M 2 % (0-0)
[2019-03-13] MEDS: INSULIN ASPART [NOVOLOG] 3 ML PEN SC ×7 (10:19→20:47)
[2019-03-13] MEDS: INSULIN GLARGINE [LANTus] (100 UNITS/ML) SYG SC (10:19)
[2019-03-13] MEDS: HEPARIN 1000 UNITS/ML 10 ML INJ HE (18:16)
[2019-03-13] MEDS: ALBUMIN HUMAN 25% 100 ML IV (18:32)
[2019-03-13] MEDS: ALTEPLASE (CATHFLO) 2 MG INJ CATHETER (20:44)
[2019-03-13] MEDS: ATORVASTATIN 40 MG TAB PO (21:50)
[2019-03-14 06:24] LABS: ADD MAN DIFF? NO
[2019-03-14 06:28] LABS: WHITE BLOOD COUNT 12.4 10^3/ul (4.8-10.8)
[2019-03-14 06:28] LABS: BASOPHILS % 0.3 % (0.0-2.0); EOSINOPHILS # 0.1 10^3/ul (0.0-0.5); EOSINOPHILS % 0.6 % (0.0-7.0); HEMATOCRIT 29.7 % (42.0-52.0); HEMOGLOBIN 8.8 g/dl (14.0-18.0); LYMPHOCYTES # 1.2 10^3/ul (0.8-2.9); MEAN CORPUSCULAR HEMOGLOBIN 25.9 pg (29.0-33.0); MEAN CORPUSCULAR HGB CONC 29.6 g/dl (32.0-37.0); MEAN CORPUSCULAR VOLUME 87.4 fl (82.0-101.0); MEAN PLATELET VOLUME 10.2 fl (7.4-10.4); MONOCYTE # 0.9 10^3/ul (0.3-0.9); MONOCYTES % 7.6 % (0.0-11.0); NEUTROPHILS % 80.8 % (39.0-77.0); PLATELET COUNT 358 10^3/UL (140-415); RED CELL DISTRIBUTION WIDTH 17.4 % (11.5-14.5)
[2019-03-14] MEDS: ACCU-CHEK XX ×4 (07:25→20:14)
[2019-03-14] MEDS: APIXABAN 5 MG TABLET PO ×2 (08:27→20:15)
[2019-03-14] MEDS: FUROSEMIDE 40 MG TAB PO (08:27)
[2019-03-14] MEDS: ASPIRIN 81 MG TAB PO (08:28)
[2019-03-14] MEDS: FAMOTIDINE 20 MG TAB PO (08:28)
[2019-03-14] MEDS: INSULIN ASPART [NOVOLOG] 3 ML PEN SC ×7 (08:59→20:14)
[2019-03-14] MEDS: INSULIN GLARGINE [LANTus] (100 UNITS/ML) SYG SC (08:59)
[2019-03-14] MEDS: BALSAM PERU/CASTOR OIL 60 GM TUBE TOP (09:00)
[2019-03-14 12:11] LABS: ANION GAP 17 (5-13); BLOOD UREA NITROGEN 60 mg/dl (7-20); CALCIUM 7.7 mg/dl (8.4-10.2); CARBON DIOXIDE 22 mmol/L (21-31); CHLORIDE 96 mmol/L (97-110); CREATININE 7.12 mg/dl (0.61-1.24); Estimated GFR 8 mL/min (>60); GLUCOSE 186 mg/dl (70-220); POTASSIUM 4.4 mmol/L (3.5-5.1); SODIUM 135 mmol/L (135-144)
[2019-03-14] MEDS: LACTOBACILLUS RHAMNOSUS CAP PO (20:15)
[2019-03-14] MEDS: ATORVASTATIN 40 MG TAB PO (20:15)
[2019-03-14] MEDS: OXYCODONE/ACETAMINOPHEN (5/325) TAB PO (20:45)
[2019-03-15 07:39] LABS: ALANINE AMINOTRANSFERASE 14 IU/L (13-69); ALBUMIN 3.5 g/dl (3.3-4.9); ALKALINE PHOSPHATASE 172 IU/L (42-121); ANION GAP 20 (5-13); ASPARTATE AMINO TRANSFERASE 40 IU/L (15-46); BILIRUBIN,INDIRECT 0.5 mg/dl (0-1.1); BILIRUBIN,TOTAL 0.5 mg/dl (0.2-1.3); BLOOD UREA NITROGEN 75 mg/dl (7-20); CALCIUM 7.6 mg/dl (8.4-10.2); CARBON DIOXIDE 16 mmol/L (21-31); CHLORIDE 96 mmol/L (97-110); CREATININE 8.55 mg/dl (0.61-1.24); Estimated GFR 6 mL/min (>60); GLUCOSE 165 mg/dl (70-220); POTASSIUM 4.9 mmol/L (3.5-5.1); SODIUM 132 mmol/L (135-144); TOTAL PROTEIN 8.5 g/dl (6.1-8.1)
[2019-03-15 07:58] LABS: ADD MAN DIFF? NO
[2019-03-15] MEDS: ACCU-CHEK XX ×4 (08:09→20:09)
[2019-03-15 08:11] LABS: WHITE BLOOD COUNT 15.5 10^3/ul (4.8-10.8)
[2019-03-15 08:11] LABS: BASOPHIL # 0.1 10^3/ul (0.0-0.1); BASOPHILS % 0.3 % (0.0-2.0); EOSINOPHILS # 0.1 10^3/ul (0.0-0.5); EOSINOPHILS % 0.7 % (0.0-7.0); HEMOGLOBIN 8.8 g/dl (14.0-18.0); LYMPHOCYTES # 1.9 10^3/ul (0.8-2.9); LYMPHOCYTES % 12.2 % (15.0-51.0); MEAN CORPUSCULAR HEMOGLOBIN 25.9 pg (29.0-33.0); MEAN CORPUSCULAR HGB CONC 30.3 g/dl (32.0-37.0); MEAN CORPUSCULAR VOLUME 85.3 fl (82.0-101.0); MEAN PLATELET VOLUME 10.2 fl (7.4-10.4); MONOCYTES % 6.2 % (0.0-11.0); NEUTROPHIL # 12.4 10^3/ul (1.6-7.5); NEUTROPHILS % 79.9 % (39.0-77.0); PLATELET COUNT 385 10^3/UL (140-415); RED CELL DISTRIBUTION WIDTH 17.4 % (11.5-14.5)
[2019-03-15] MEDS: ESCITALOPRAM 10 MG TAB PO (08:15)
[2019-03-15] MEDS: LACTOBACILLUS RHAMNOSUS CAP PO ×2 (08:15→20:04)
[2019-03-15] MEDS: FUROSEMIDE 40 MG TAB PO ×2 (08:16→09:00)
[2019-03-15] MEDS: ASPIRIN 81 MG TAB PO (08:16)
[2019-03-15] MEDS: FAMOTIDINE 20 MG TAB PO (08:16)
[2019-03-15] MEDS: APIXABAN 5 MG TABLET PO ×2 (08:16→20:04)
[2019-03-15] MEDS: INSULIN GLARGINE [LANTus] (100 UNITS/ML) SYG SC (08:18)
[2019-03-15] MEDS: INSULIN ASPART [NOVOLOG] 3 ML PEN SC ×7 (08:19→20:08)
[2019-03-15 08:23] LABS: MAGNESIUM 2.1 mg/dl (1.7-2.5)
[2019-03-15] MEDS: BALSAM PERU/CASTOR OIL 60 GM TUBE TOP (09:00)
[2019-03-15] MEDS: HEPARIN 1000 UNITS/ML 10 ML INJ HE ×2 (13:18→13:19)
[2019-03-15] MEDS: ALTEPLASE (CATHFLO) 2 MG INJ CATHETER (16:13)
[2019-03-15] MEDS: EPOETIN ALFA-EPBX (ESRD) 10,000 UNIT/ML VIAL SC (18:43)
[2019-03-15] MEDS: ATORVASTATIN 40 MG TAB PO (20:04)
[2019-03-16] MEDS: ACCU-CHEK XX ×4 (07:25→20:09)
[2019-03-16] MEDS: INSULIN ASPART [NOVOLOG] 3 ML PEN SC ×7 (08:47→20:10)
[2019-03-16] MEDS: LACTOBACILLUS RHAMNOSUS CAP PO ×2 (09:03→20:10)
[2019-03-16] MEDS: ASPIRIN 81 MG TAB PO (09:03)
[2019-03-16] MEDS: ESCITALOPRAM 10 MG TAB PO (09:03)
[2019-03-16] MEDS: FAMOTIDINE 20 MG TAB PO (09:04)
[2019-03-16] MEDS: APIXABAN 5 MG TABLET PO ×2 (09:04→20:10)
[2019-03-16] MEDS: FUROSEMIDE 40 MG TAB PO (09:04)
[2019-03-16] MEDS: BALSAM PERU/CASTOR OIL 60 GM TUBE TOP (09:12)
[2019-03-16] MEDS: INSULIN GLARGINE [LANTus] (100 UNITS/ML) SYG SC (09:17)
[2019-03-16] MEDS: ATORVASTATIN 40 MG TAB PO (20:10)
[2019-03-17] MEDS: ACCU-CHEK XX ×4 (07:25→20:46)
[2019-03-17] MEDS: HEPARIN 1000 UNITS/ML 10 ML INJ HE ×2 (08:33)
[2019-03-17] MEDS: FUROSEMIDE 40 MG TAB PO (09:00)
[2019-03-17] MEDS: LACTOBACILLUS RHAMNOSUS CAP PO ×2 (09:43→20:41)
[2019-03-17] MEDS: FAMOTIDINE 20 MG TAB PO (09:44)
[2019-03-17] MEDS: ESCITALOPRAM 10 MG TAB PO (09:44)
[2019-03-17] MEDS: APIXABAN 5 MG TABLET PO ×2 (09:44→20:41)
[2019-03-17] MEDS: BALSAM PERU/CASTOR OIL 60 GM TUBE TOP (09:45)
[2019-03-17] MEDS: ASPIRIN 81 MG TAB PO (09:45)
[2019-03-17] MEDS: INSULIN ASPART [NOVOLOG] 3 ML PEN SC ×7 (09:48→20:46)
[2019-03-17] MEDS: INSULIN GLARGINE [LANTus] (100 UNITS/ML) SYG SC (09:54)
[2019-03-17] MEDS: ALTEPLASE (CATHFLO) 2 MG INJ CATHETER (11:35)
[2019-03-17] MEDS: EPOETIN ALFA-EPBX (ESRD) 10,000 UNIT/ML VIAL SC (17:29)
[2019-03-17] MEDS: ATORVASTATIN 40 MG TAB PO (20:41)
[2019-03-18 07:03] LABS: ADD MAN DIFF? NO
[2019-03-18 07:09] LABS: BASOPHILS % 0.3 % (0.0-2.0); EOSINOPHILS # 0.1 10^3/ul (0.0-0.5); EOSINOPHILS % 0.7 % (0.0-7.0); HEMOGLOBIN 7.5 g/dl (14.0-18.0); LYMPHOCYTES # 1.8 10^3/ul (0.8-2.9); LYMPHOCYTES % 17.7 % (15.0-51.0); MEAN CORPUSCULAR VOLUME 86.5 fl (82.0-101.0); MEAN PLATELET VOLUME 10.2 fl (7.4-10.4); MONOCYTE # 0.9 10^3/ul (0.3-0.9); MONOCYTES % 8.4 % (0.0-11.0); NEUTROPHIL # 7.3 10^3/ul (1.6-7.5); NEUTROPHILS % 71.9 % (39.0-77.0); PLATELET COUNT 314 10^3/UL (140-415); RED BLOOD COUNT 2.89 10^6/ul (4.70-6.10); RED CELL DISTRIBUTION WIDTH 17.2 % (11.5-14.5)
[2019-03-18 07:09] LABS: WHITE BLOOD COUNT 10.1 10^3/ul (4.8-10.8)
[2019-03-18 07:25] LABS: ANION GAP 10 (5-13); BLOOD UREA NITROGEN 49 mg/dl (7-20); CALCIUM 7.4 mg/dl (8.4-10.2); CARBON DIOXIDE 22 mmol/L (21-31); CHLORIDE 101 mmol/L (97-110); CREATININE 6.03 mg/dl (0.61-1.24); Estimated GFR 9 mL/min (>60); GLUCOSE 227 mg/dl (70-220); POTASSIUM 3.8 mmol/L (3.5-5.1); SODIUM 133 mmol/L (135-144)
[2019-03-18 07:25] LABS: MAGNESIUM 2.2 mg/dl (1.7-2.5)
[2019-03-18 07:29] LABS: INR 1.66; PROTIME 19.7 Sec (11.9-14.9); PT RATIO 1.5
[2019-03-18 07:30] LABS: PARTIAL THROMBOPLASTIN TIME 54.2 Sec (23.0-35.0)
[2019-03-18] MEDS: ACCU-CHEK XX ×4 (08:16→20:20)
[2019-03-18] MEDS: LACTOBACILLUS RHAMNOSUS CAP PO ×2 (08:42→20:19)
[2019-03-18] MEDS: FUROSEMIDE 40 MG TAB PO (08:42)
[2019-03-18] MEDS: APIXABAN 5 MG TABLET PO ×2 (08:43→20:19)
[2019-03-18] MEDS: ESCITALOPRAM 10 MG TAB PO (08:43)
[2019-03-18] MEDS: ASPIRIN 81 MG TAB PO (08:43)
[2019-03-18] MEDS: FAMOTIDINE 20 MG TAB PO (08:43)
[2019-03-18] MEDS: BALSAM PERU/CASTOR OIL 60 GM TUBE TOP (08:49)
[2019-03-18] MEDS: INSULIN ASPART [NOVOLOG] 3 ML PEN SC ×7 (08:55→20:13)
[2019-03-18] MEDS: INSULIN GLARGINE [LANTus] (100 UNITS/ML) SYG SC (08:55)
[2019-03-18] MEDS ORDERED: VANCOMYCIN 500 MG (PMX) 100 ML IVPB (18:00)
[2019-03-18] MEDS: PIPER-TAZO 2.25 GM (PMX) 50 ML IVPB (18:02)
[2019-03-18] MEDS: VANCOMYCIN HCL 1.5 GM in SOD CHLORIDE 0.9% 250 ML IVPB (20:11)
[2019-03-18] MEDS: ATORVASTATIN 40 MG TAB PO (20:19)
[2019-03-18] MEDS ORDERED: VANCOMYCIN RANDOM LEVEL XX (22:30)
[2019-03-19] MEDS: PIPER-TAZO 2.25 GM (PMX) 50 ML IVPB ×4 (00:25→23:46)
[2019-03-19] MEDS: ACCU-CHEK XX ×4 (07:25→21:50)
[2019-03-19] MEDS: INSULIN ASPART [NOVOLOG] 3 ML PEN SC ×8 (07:55→20:36)
[2019-03-19] MEDS ORDERED: VANCOMYCIN IV PER PHARMACY XX (08:00)
[2019-03-19] MEDS: LACTOBACILLUS RHAMNOSUS CAP PO ×2 (08:48→20:36)
[2019-03-19] MEDS: ESCITALOPRAM 10 MG TAB PO (08:48)
[2019-03-19] MEDS: FAMOTIDINE 20 MG TAB PO (08:49)
[2019-03-19] MEDS: ASPIRIN 81 MG TAB PO ×2 (08:49→09:00)
[2019-03-19] MEDS: FUROSEMIDE 40 MG TAB PO (08:49)
[2019-03-19] MEDS: INSULIN GLARGINE [LANTus] (100 UNITS/ML) SYG SC (08:55)
[2019-03-19] MEDS: BALSAM PERU/CASTOR OIL 60 GM TUBE TOP (09:01)
[2019-03-19] MEDS ORDERED: MIDAZOLAM 1 MG/ML 2 ML INJ ×2 (12:42→13:08)
[2019-03-19] MEDS ORDERED: LIDOCAINE 1% (MPF) 30 ML INJ (12:43)
[2019-03-19] MEDS ORDERED: FENTAnyl 50 MCG/ML VIAL (12:43)
[2019-03-19] MEDS: BUPIVACAINE 0.25% (MPF) 10 ML 10 ML VIAL INJ (13:00)
[2019-03-19] MEDS: LIDOCAINE 1% (MPF) 10 ML INJ INJ (13:00)
[2019-03-19] MEDS ORDERED: THROMBIN 5000 UNIT VIAL (13:56)
[2019-03-19] MEDS ORDERED: GELATIN SIZE 100 SPONGE (13:56)
[2019-03-19] MEDS: THROMBIN 5000 UNIT VIAL TOP (13:58)
[2019-03-19] MEDS: GELATIN SIZE 100 SPONGE TOP (13:58)
[2019-03-19] MEDS ORDERED: MIDAZOLAM 1 MG/ML 2 ML INJ IV (14:30)
[2019-03-19] MEDS ORDERED: EPHEDrine 25 MG/5 ML SYG IV (14:30)
[2019-03-19] MEDS ORDERED: ONDANSETRON 4 MG INJ IV (14:30)
[2019-03-19] MEDS ORDERED: hydrALAzine 20 MG INJ IV (14:30)
[2019-03-19] MEDS ORDERED: LABETALOL HCL 20MG INJ IV (14:30)
[2019-03-19] MEDS ORDERED: DIPHENHYDRAMINE 50 MG INJ IV (14:30)
[2019-03-19] MEDS ORDERED: FENTAnyl 50 MCG/ML VIAL IV ×2 (14:30)
[2019-03-19] MEDS ORDERED: ALBUTEROL 0.083% (NEB) 2.5 MG/3 ML AMP HHN (14:30)
[2019-03-19] MEDS: EPOETIN ALFA-EPBX (ESRD) 10,000 UNIT/ML VIAL SC (17:23)
[2019-03-19] MEDS ORDERED: [UNRECOGNIZED DRUG - OTHER] XX (18:00)
[2019-03-19] MEDS ORDERED: TYLENOL PRN XX (18:00)
[2019-03-19] MEDS: HEPARIN 1000 UNITS/ML 10 ML INJ HE ×2 (20:33→20:34)
[2019-03-19] MEDS: ATORVASTATIN 40 MG TAB PO (20:36)
[2019-03-19] MEDS ORDERED: ALBUTEROL/IPRATROPIUM (NEB) 3 ML AMP HHN (22:00)
[2019-03-19] MEDS: IPRATROPIUM (NEB) 0.5 MG/2.5 ML AMP HHN (22:10)
[2019-03-19] MEDS: LEVALBUTEROL (NEB) 1.25 MG/0.5 ML AMP HHN (22:10)
[2019-03-19] MEDS: ACETAMINOPHEN 325 MG TAB PO (22:59)
[2019-03-19] MEDS: ALTEPLASE (CATHFLO) 2 MG INJ CATHETER (23:13)
[2019-03-20] MEDS: ALBUMIN HUMAN 25% 100 ML IV ×3 (04:18→15:38)
[2019-03-20] MEDS: PIPER-TAZO 2.25 GM (PMX) 50 ML IVPB ×3 (06:09→21:13)
[2019-03-20] MEDS: VANCOMYCIN RANDOM LEVEL XX (06:25)
[2019-03-20 06:38] LABS: VANCOMYCIN,RANDOM 13.7 ug/ml
[2019-03-20] MEDS: ACCU-CHEK XX ×4 (07:25→20:21)
[2019-03-20] MEDS: INSULIN ASPART [NOVOLOG] 3 ML PEN SC ×7 (08:41→20:22)
[2019-03-20] MEDS: FUROSEMIDE 40 MG TAB PO (09:00)
[2019-03-20] MEDS: ASPIRIN 81 MG TAB PO (10:03)
[2019-03-20] MEDS: APIXABAN 5 MG TABLET PO ×2 (10:03→20:21)
[2019-03-20] MEDS: VANCOMYCIN 1 GM 250 ML IVPB (10:03)
[2019-03-20] MEDS: FAMOTIDINE 20 MG TAB PO (10:04)
[2019-03-20] MEDS: ESCITALOPRAM 10 MG TAB PO (10:04)
[2019-03-20] MEDS: LACTOBACILLUS RHAMNOSUS CAP PO ×2 (10:08→20:21)
[2019-03-20] MEDS: INSULIN GLARGINE [LANTus] (100 UNITS/ML) SYG SC (10:16)
[2019-03-20] MEDS: BALSAM PERU/CASTOR OIL 60 GM TUBE TOP (10:17)
[2019-03-20] MEDS: ACETAMINOPHEN 325 MG TAB PO (17:29)
[2019-03-20] MEDS: HEPARIN 1000 UNITS/ML 10 ML INJ HE ×2 (18:54→18:55)
[2019-03-20] MEDS: ATORVASTATIN 40 MG TAB PO (20:21)
[2019-03-21] MEDS: PIPER-TAZO 2.25 GM (PMX) 50 ML IVPB ×3 (05:47→22:15)
[2019-03-21] MEDS: ACCU-CHEK XX ×4 (08:14→20:04)
[2019-03-21] MEDS: ESCITALOPRAM 10 MG TAB PO (08:41)
[2019-03-21] MEDS: ASPIRIN 81 MG TAB PO (08:41)
[2019-03-21] MEDS: LACTOBACILLUS RHAMNOSUS CAP PO ×2 (08:42→20:01)
[2019-03-21] MEDS: FAMOTIDINE 20 MG TAB PO (08:42)
[2019-03-21] MEDS: APIXABAN 5 MG TABLET PO ×2 (08:42→20:01)
[2019-03-21] MEDS: FUROSEMIDE 40 MG TAB PO (08:43)
[2019-03-21] MEDS: BALSAM PERU/CASTOR OIL 60 GM TUBE TOP (08:45)
[2019-03-21] MEDS: INSULIN GLARGINE [LANTus] (100 UNITS/ML) SYG SC (09:17)
[2019-03-21] MEDS: INSULIN ASPART [NOVOLOG] 3 ML PEN SC ×7 (09:17→20:04)
[2019-03-21] MEDS: ACETAMINOPHEN 325 MG TAB PO (20:01)
[2019-03-21] MEDS: ATORVASTATIN 40 MG TAB PO (20:01)
[2019-03-22] MEDS: PIPER-TAZO 2.25 GM (PMX) 50 ML IVPB ×3 (06:24→23:01)
[2019-03-22] MEDS: ACCU-CHEK XX ×4 (07:28→21:08)
[2019-03-22] MEDS: INSULIN ASPART [NOVOLOG] 3 ML PEN SC ×7 (07:47→21:00)
[2019-03-22] MEDS: INSULIN GLARGINE [LANTus] (100 UNITS/ML) SYG SC (07:54)
[2019-03-22] MEDS: ESCITALOPRAM 10 MG TAB PO (08:06)
[2019-03-22] MEDS: FAMOTIDINE 20 MG TAB PO (08:06)
[2019-03-22] MEDS: LACTOBACILLUS RHAMNOSUS CAP PO ×2 (08:07→21:07)
[2019-03-22] MEDS: APIXABAN 5 MG TABLET PO ×2 (08:07→21:08)
[2019-03-22] MEDS: ASPIRIN 81 MG TAB PO (08:08)
[2019-03-22] MEDS: BALSAM PERU/CASTOR OIL 60 GM TUBE TOP (08:08)
[2019-03-22] MEDS: FUROSEMIDE 40 MG TAB PO (08:08)
[2019-03-22] MEDS: HEPARIN 1000 UNITS/ML 10 ML INJ HE ×2 (08:21)
[2019-03-22] MEDS: ALBUMIN HUMAN 25% 100 ML IV (08:57)
[2019-03-22 09:58] LABS: ADD MAN DIFF? NO
[2019-03-22 10:02] LABS: ABNORMAL IP MESSAGE 1; BASOPHIL # 0.1 10^3/ul (0.0-0.1); BASOPHILS % 0.7 % (0.0-2.0); EOSINOPHILS # 0.2 10^3/ul (0.0-0.5); HEMATOCRIT 22.7 % (42.0-52.0); LYMPHOCYTES # 1.9 10^3/ul (0.8-2.9); LYMPHOCYTES % 21.5 % (15.0-51.0); MEAN CORPUSCULAR HEMOGLOBIN 25.3 pg (29.0-33.0); MEAN CORPUSCULAR HGB CONC 29.1 g/dl (32.0-37.0); MEAN PLATELET VOLUME 10.2 fl (7.4-10.4); MONOCYTE # 0.4 10^3/ul (0.3-0.9); MONOCYTES % 4.3 % (0.0-11.0); NEUTROPHIL # 6.4 10^3/ul (1.6-7.5); NEUTROPHILS % 71.1 % (39.0-77.0); PLATELET COUNT 346 10^3/UL (140-415); POSITIVE DIFF @See below; RED BLOOD COUNT 2.61 10^6/ul (4.70-6.10); RED CELL DISTRIBUTION WIDTH 17.5 % (11.5-14.5)
[2019-03-22 10:15] LABS: HEMOGLOBIN 6.6 g/dl (14.0-18.0)
[2019-03-22 10:21] LABS: ANION GAP 14 (5-13); BLOOD UREA NITROGEN 44 mg/dl (7-20); CALCIUM 7.1 mg/dl (8.4-10.2); CARBON DIOXIDE 21 mmol/L (21-31); CHLORIDE 99 mmol/L (97-110); Estimated GFR 9 mL/min (>60); GLUCOSE 100 mg/dl (70-220); POTASSIUM 3.4 mmol/L (3.5-5.1); SODIUM 134 mmol/L (135-144)
[2019-03-22] MEDS: ALTEPLASE (CATHFLO) 2 MG INJ CATHETER (11:09)
[2019-03-22] MEDS: OXYCODONE/ACETAMINOPHEN (5/325) TAB PO (12:11)
[2019-03-22 15:33] LABS: HEMATOCRIT 25.6 % (42.0-52.0); HEMOGLOBIN 7.3 g/dl (14.0-18.0)
[2019-03-22] MEDS: EPOETIN ALFA-EPBX (ESRD) 10,000 UNIT/ML VIAL SC (17:49)
[2019-03-22] MEDS: ATORVASTATIN 40 MG TAB PO (21:07)
[2019-03-23] MEDS: PIPER-TAZO 2.25 GM (PMX) 50 ML IVPB (05:59)
[2019-03-23 06:32] LABS: ADD MAN DIFF? NO
[2019-03-23 06:36] LABS: BASOPHIL # 0.1 10^3/ul (0.0-0.1); BASOPHILS % 0.8 % (0.0-2.0); EOSINOPHILS # 0.2 10^3/ul (0.0-0.5); EOSINOPHILS % 1.8 % (0.0-7.0); HEMATOCRIT 23.9 % (42.0-52.0); LYMPHOCYTES # 2.2 10^3/ul (0.8-2.9); LYMPHOCYTES % 25.3 % (15.0-51.0); MEAN CORPUSCULAR HEMOGLOBIN 25.6 pg (29.0-33.0); MEAN CORPUSCULAR HGB CONC 29.3 g/dl (32.0-37.0); MEAN CORPUSCULAR VOLUME 87.5 fl (82.0-101.0); MEAN PLATELET VOLUME 9.8 fl (7.4-10.4); MONOCYTE # 0.6 10^3/ul (0.3-0.9); MONOCYTES % 7.1 % (0.0-11.0); NEUTROPHIL # 5.6 10^3/ul (1.6-7.5); NEUTROPHILS % 64.4 % (39.0-77.0); PLATELET COUNT 338 10^3/UL (140-415); RED BLOOD COUNT 2.73 10^6/ul (4.70-6.10); RED CELL DISTRIBUTION WIDTH 17.5 % (11.5-14.5)
[2019-03-23 06:36] LABS: WHITE BLOOD COUNT 8.8 10^3/ul (4.8-10.8)
[2019-03-23 07:27] LABS: ANION GAP 9 (5-13); BLOOD UREA NITROGEN 28 mg/dl (7-20); CALCIUM 7.3 mg/dl (8.4-10.2); CARBON DIOXIDE 25 mmol/L (21-31); CHLORIDE 101 mmol/L (97-110); CREATININE 4.67 mg/dl (0.61-1.24); Estimated GFR 13 mL/min (>60); GLUCOSE 133 mg/dl (70-220); POTASSIUM 3.7 mmol/L (3.5-5.1); SODIUM 135 mmol/L (135-144)
[2019-03-23 07:29] LABS: VANCOMYCIN,RANDOM 13.8 ug/ml
[2019-03-23] MEDS: ACCU-CHEK XX ×4 (07:45→21:22)
[2019-03-23] MEDS: INSULIN ASPART [NOVOLOG] 3 ML PEN SC ×7 (07:55→21:28)
[2019-03-23] MEDS: ASPIRIN 81 MG TAB PO (08:42)
[2019-03-23] MEDS: LACTOBACILLUS RHAMNOSUS CAP PO ×2 (08:42→21:16)
[2019-03-23] MEDS: APIXABAN 5 MG TABLET PO ×2 (08:43→21:16)
[2019-03-23] MEDS: ESCITALOPRAM 10 MG TAB PO (08:43)
[2019-03-23] MEDS: FUROSEMIDE 40 MG TAB PO (08:43)
[2019-03-23] MEDS: BALSAM PERU/CASTOR OIL 60 GM TUBE TOP (08:44)
[2019-03-23] MEDS: FAMOTIDINE 20 MG TAB PO (08:44)
[2019-03-23] MEDS: ACETAMINOPHEN 325 MG TAB PO ×2 (08:50→21:34)
[2019-03-23] MEDS: INSULIN GLARGINE [LANTus] (100 UNITS/ML) SYG SC (08:55)
[2019-03-23] MEDS: LEVOFLOXACIN 500 MG TAB PO (13:34)
[2019-03-23] MEDS: metroNIDAZOLE 500 MG TAB PO ×2 (13:34→21:16)
[2019-03-23] MEDS: ATORVASTATIN 40 MG TAB PO (21:16)
[2019-03-24] MEDS: metroNIDAZOLE 500 MG TAB PO ×4 (05:00→22:41)
[2019-03-24] MEDS: INSULIN ASPART [NOVOLOG] 3 ML PEN SC ×7 (07:55→20:19)
[2019-03-24] MEDS: ACCU-CHEK XX ×4 (08:11→20:32)
[2019-03-24] MEDS: FAMOTIDINE 20 MG TAB PO (08:14)
[2019-03-24] MEDS: ESCITALOPRAM 10 MG TAB PO (08:14)
[2019-03-24] MEDS: ASPIRIN 81 MG TAB PO (08:15)
[2019-03-24] MEDS: APIXABAN 5 MG TABLET PO ×2 (08:15→20:12)
[2019-03-24] MEDS: LACTOBACILLUS RHAMNOSUS CAP PO ×2 (08:15→20:12)
[2019-03-24] MEDS: FUROSEMIDE 40 MG TAB PO (08:15)
[2019-03-24] MEDS: BALSAM PERU/CASTOR OIL 60 GM TUBE TOP (08:21)
[2019-03-24] MEDS: (Nursing Note) XX ×4 (09:30→20:32)
[2019-03-24] MEDS: INSULIN GLARGINE [LANTus] (100 UNITS/ML) SYG SC (09:44)
[2019-03-24 10:26] LABS: ADD MAN DIFF? NO
[2019-03-24] MEDS: ALTEPLASE (CATHFLO) 2 MG INJ CATHETER (10:27)
[2019-03-24 10:28] LABS: WHITE BLOOD COUNT 14.6 10^3/ul (4.8-10.8)
[2019-03-24 10:28] LABS: BASOPHIL # 0.1 10^3/ul (0.0-0.1); BASOPHILS % 0.8 % (0.0-2.0); EOSINOPHILS # 0.3 10^3/ul (0.0-0.5); EOSINOPHILS % 2.3 % (0.0-7.0); HEMATOCRIT 27.6 % (42.0-52.0); LYMPHOCYTES # 3.4 10^3/ul (0.8-2.9); LYMPHOCYTES % 23.1 % (15.0-51.0); MEAN CORPUSCULAR HEMOGLOBIN 25.4 pg (29.0-33.0); MEAN CORPUSCULAR VOLUME 87.6 fl (82.0-101.0); MEAN PLATELET VOLUME 9.6 fl (7.4-10.4); MONOCYTE # 1.3 10^3/ul (0.3-0.9); MONOCYTES % 8.8 % (0.0-11.0); NEUTROPHIL # 9.3 10^3/ul (1.6-7.5); NEUTROPHILS % 64.1 % (39.0-77.0); PLATELET COUNT 358 10^3/UL (140-415); RED BLOOD COUNT 3.15 10^6/ul (4.70-6.10); RED CELL DISTRIBUTION WIDTH 17.3 % (11.5-14.5)
[2019-03-24 10:45] LABS: ALANINE AMINOTRANSFERASE 15 IU/L (13-69); ALBUMIN 3.1 g/dl (3.3-4.9); ALBUMIN/GLOBULIN RATIO 0.83; ALKALINE PHOSPHATASE 115 IU/L (42-121); ANION GAP 13 (5-13); ASPARTATE AMINO TRANSFERASE 21 IU/L (15-46); BILIRUBIN,INDIRECT 0.3 mg/dl (0-1.1); BILIRUBIN,TOTAL 0.3 mg/dl (0.2-1.3); BLOOD UREA NITROGEN 38 mg/dl (7-20); CALCIUM 7.4 mg/dl (8.4-10.2); CARBON DIOXIDE 22 mmol/L (21-31); CHLORIDE 100 mmol/L (97-110); CREATININE 5.89 mg/dl (0.61-1.24); Estimated GFR 10 mL/min (>60); GLUCOSE 154 mg/dl (70-220); POTASSIUM 3.7 mmol/L (3.5-5.1); SODIUM 135 mmol/L (135-144); TOTAL PROTEIN 6.8 g/dl (6.1-8.1)
[2019-03-24] MEDS: ACETAMINOPHEN 325 MG TAB PO (12:27)
[2019-03-24] MEDS: OXYCODONE/ACETAMINOPHEN (5/325) TAB PO (13:54)
[2019-03-24] MEDS: FUROSEMIDE 20 MG INJ IV (15:38)
[2019-03-24] MEDS: EPOETIN ALFA-EPBX (ESRD) 10,000 UNIT/ML VIAL SC (18:23)
[2019-03-24] MEDS: ATORVASTATIN 40 MG TAB PO (20:12)
[2019-03-24] MEDS: ONDANSETRON 4 MG INJ IV (20:19)
[2019-03-24] MEDS: ZOLPIDEM 5 MG TAB PO (20:19)
[2019-03-25] MEDS: metroNIDAZOLE 500 MG TAB PO ×3 (06:20→21:07)
[2019-03-25 06:41] LABS: ADD MAN DIFF? NO
[2019-03-25 06:49] LABS: WHITE BLOOD COUNT 9.4 10^3/ul (4.8-10.8)
[2019-03-25 06:49] LABS: BASOPHIL # 0.1 10^3/ul (0.0-0.1); BASOPHILS % 0.8 % (0.0-2.0); EOSINOPHILS # 0.2 10^3/ul (0.0-0.5); EOSINOPHILS % 1.6 % (0.0-7.0); HEMATOCRIT 25.1 % (42.0-52.0); HEMOGLOBIN 7.3 g/dl (14.0-18.0); LYMPHOCYTES # 2.6 10^3/ul (0.8-2.9); LYMPHOCYTES % 27.9 % (15.0-51.0); MEAN CORPUSCULAR HEMOGLOBIN 25.2 pg (29.0-33.0); MEAN CORPUSCULAR HGB CONC 29.1 g/dl (32.0-37.0); MEAN CORPUSCULAR VOLUME 86.6 fl (82.0-101.0); MEAN PLATELET VOLUME 9.8 fl (7.4-10.4); MONOCYTE # 0.7 10^3/ul (0.3-0.9); MONOCYTES % 7.1 % (0.0-11.0); NEUTROPHIL # 5.8 10^3/ul (1.6-7.5); PLATELET COUNT 383 10^3/UL (140-415); RED CELL DISTRIBUTION WIDTH 17.5 % (11.5-14.5)
[2019-03-25] MEDS: ACCU-CHEK XX ×4 (07:25→21:08)
[2019-03-25 07:31] LABS: ANION GAP 15 (5-13); BLOOD UREA NITROGEN 47 mg/dl (7-20); CALCIUM 7.3 mg/dl (8.4-10.2); CARBON DIOXIDE 20 mmol/L (21-31); CHLORIDE 102 mmol/L (97-110); CREATININE 7.04 mg/dl (0.61-1.24); Estimated GFR 8 mL/min (>60); GLUCOSE 149 mg/dl (70-220); POTASSIUM 4.1 mmol/L (3.5-5.1); SODIUM 137 mmol/L (135-144)
[2019-03-25] MEDS: INSULIN ASPART [NOVOLOG] 3 ML PEN SC ×7 (07:55→21:00)
[2019-03-25] MEDS: FAMOTIDINE 20 MG TAB PO (08:16)
[2019-03-25] MEDS: ESCITALOPRAM 10 MG TAB PO (08:18)
[2019-03-25] MEDS: FUROSEMIDE 40 MG TAB PO (08:18)
[2019-03-25] MEDS: LACTOBACILLUS RHAMNOSUS CAP PO ×2 (08:19→21:07)
[2019-03-25] MEDS: APIXABAN 5 MG TABLET PO ×2 (08:20→21:07)
[2019-03-25] MEDS: ASPIRIN 81 MG TAB PO (08:20)
[2019-03-25] MEDS: INSULIN GLARGINE [LANTus] (100 UNITS/ML) SYG SC (08:29)
[2019-03-25] MEDS: BALSAM PERU/CASTOR OIL 60 GM TUBE TOP (09:00)
[2019-03-25] MEDS: (Nursing Note) XX ×4 (09:00→21:00)
[2019-03-25] MEDS: SOD CHLORIDE 0.9% 250 ML IV* (10:50)
[2019-03-25] MEDS: HEPARIN 1000 UNITS/ML 10 ML INJ HE ×2 (13:49)
[2019-03-25 15:11] LABS: AHG CROSSMATCH 1 1
[2019-03-25] MEDS: ALTEPLASE (CATHFLO) 2 MG INJ CATHETER (16:47)
[2019-03-25] MEDS: LEVOFLOXACIN 500 MG TAB PO (17:58)
[2019-03-25] MEDS: ATORVASTATIN 40 MG TAB PO (21:07)
[2019-03-25] MEDS: PREGABALIN 75 MG CAP PO (21:34)
[2019-03-25] MEDS: ZOLPIDEM 5 MG TAB PO (22:30)
[2019-03-26] MEDS: metroNIDAZOLE 500 MG TAB PO ×2 (06:39→16:51)
[2019-03-26] MEDS: ACCU-CHEK XX ×3 (07:25→17:25)
[2019-03-26] MEDS: INSULIN ASPART [NOVOLOG] 3 ML PEN SC ×6 (07:55→17:53)
[2019-03-26] MEDS: LACTOBACILLUS RHAMNOSUS CAP PO (08:15)
[2019-03-26] MEDS: ESCITALOPRAM 10 MG TAB PO (08:16)
[2019-03-26] MEDS: FAMOTIDINE 20 MG TAB PO (08:17)
[2019-03-26] MEDS: FUROSEMIDE 40 MG TAB PO (08:18)
[2019-03-26] MEDS: APIXABAN 5 MG TABLET PO (08:19)
[2019-03-26] MEDS: ASPIRIN 81 MG TAB PO (08:21)
[2019-03-26] MEDS: INSULIN GLARGINE [LANTus] (100 UNITS/ML) SYG SC (08:31)
[2019-03-26] MEDS: BALSAM PERU/CASTOR OIL 60 GM TUBE TOP (09:00)
[2019-03-26] MEDS: OXYCODONE/ACETAMINOPHEN (5/325) TAB PO (10:41)
[2019-03-26] MEDS: PREGABALIN 75 MG CAP PO (12:51)
[2019-03-26] MEDS: HEPARIN 1000 UNITS/ML 10 ML INJ HE ×2 (13:37→13:38)
[2019-03-26] MEDS: ALBUMIN HUMAN 25% 100 ML IV (14:47)
[2019-03-26] MEDS: ALTEPLASE (CATHFLO) 2 MG INJ CATHETER (16:26)
[2019-03-26] MEDS: EPOETIN ALFA-EPBX (ESRD) 10,000 UNIT/ML VIAL SC (16:57)
== END 2019-03-26 18:05 | DRG 233 ==
LOC: ICU 02-09 15:55 → 6WM 02-11 20:05 → PP2 03-08 23:01 → TEL 03-10 18:50 → E/R 06:31 → ICU 02-16 14:33 → TEL 08:08
PROC: 0Y6N0Z9 Detachment at Left Foot, Partial 1st Ray, Open Approach (ICD-10-PCS; principal; 2019-02-05 14:05)
PROC: 02100Z9 Bypass Coronary Artery, One Artery from Left Internal Mammary, Open Approach (ICD-10-PCS; 2019-02-05 14:05)
PROC: 4A023N7 Measurement of Cardiac Sampling and Pressure, Left Heart, Percutaneous Approach (ICD-10-PCS; 2019-02-05 14:05)
PROC: 0Y6N0ZB Detachment at Left Foot, Partial 2nd Ray, Open Approach (ICD-10-PCS; 2019-02-05 14:05)
PROC: 0Y6N0ZC Detachment at Left Foot, Partial 3rd Ray, Open Approach (ICD-10-PCS; 2019-02-05 14:05)
PROC: 0Y6N0ZD Detachment at Left Foot, Partial 4th Ray, Open Approach (ICD-10-PCS; 2019-02-05 14:05)
PROC: 0Y6N0ZF Detachment at Left Foot, Partial 5th Ray, Open Approach (ICD-10-PCS; 2019-02-05 14:05)
PROC: 021209W Bypass Coronary Artery, Three Arteries from Aorta with Autologous Venous Tissue, Open Approach (ICD-10-PCS; 2019-02-05 14:05)
PROC: 06BQ4ZZ Excision of Left Saphenous Vein, Percutaneous Endoscopic Approach (ICD-10-PCS; 2019-02-05 14:05)
PROC: 30233N1 Transfusion of Nonautologous Red Blood Cells into Peripheral Vein, Percutaneous Approach (ICD-10-PCS; 2019-02-05 14:05)
PROC: 0DJ08ZZ Inspection of Upper Intestinal Tract, Via Natural or Artificial Opening Endoscopic (ICD-10-PCS; 2019-02-05 14:05)
PROC: 0DBP8ZX Excision of Rectum, Via Natural or Artificial Opening Endoscopic, Diagnostic (ICD-10-PCS; 2019-02-05 14:05)
PROC: B211YZZ Fluoroscopy of Multiple Coronary Arteries using Other Contrast (ICD-10-PCS; 2019-02-05 14:05)
PROC: 0JHM3XZ Insertion of Tunneled Vascular Access Device into Left Upper Leg Subcutaneous Tissue and Fascia, Percutaneous Approach (ICD-10-PCS; 2019-02-05 14:05)
PROC: 5A1D70Z Performance of Urinary Filtration, Intermittent, Less than 6 Hours Per Day (ICD-10-PCS; 2019-02-05 14:05)
PROC: 5A1221Z Performance of Cardiac Output, Continuous (ICD-10-PCS; 2019-02-05 14:05)
PROC: 06HY33Z Insertion of Infusion Device into Lower Vein, Percutaneous Approach (ICD-10-PCS; 2019-02-05 14:05)
PROC: 02HV33Z Insertion of Infusion Device into Superior Vena Cava, Percutaneous Approach (ICD-10-PCS; 2019-02-05 14:05)
PROC: 06HN33Z Insertion of Infusion Device into Left Femoral Vein, Percutaneous Approach (ICD-10-PCS; 2019-02-05 14:05)
PROC: 0H9NXZX Drainage of Left Foot Skin, External Approach, Diagnostic (ICD-10-PCS; 2019-02-05 14:05)
PROC: 0HBNXZZ Excision of Left Foot Skin, External Approach (ICD-10-PCS; 2019-02-05 14:05)
DX: E11.52 Type 2 diabetes mellitus with diabetic peripheral angiopathy with gangrene (principal); K28.0 Acute gastrojejunal ulcer with hemorrhage; N18.6 End stage renal disease; I21.4 Non-ST elevation (NSTEMI) myocardial infarction; I70.263 Atherosclerosis of native arteries of extremities with gangrene, bilateral legs; D62 Acute posthemorrhagic anemia; T82.868A Thrombosis due to vascular prosthetic devices, implants and grafts, initial encounter; T82.41XA Breakdown (mechanical) of vascular dialysis catheter, initial encounter; I12.0 Hypertensive chronic kidney disease with stage 5 chronic kidney disease or end stage renal disease; I48.92 Unspecified atrial flutter; K81.0 Acute cholecystitis; L02.612 Cutaneous abscess of left foot; L03.116 Cellulitis of left lower limb; I82.220 Acute embolism and thrombosis of inferior vena cava; D63.1 Anemia in chronic kidney disease; E11.22 Type 2 diabetes mellitus with diabetic chronic kidney disease; E11.65 Type 2 diabetes mellitus with hyperglycemia; E11.621 Type 2 diabetes mellitus with foot ulcer; E87.70 Fluid overload, unspecified; E78.5 Hyperlipidemia, unspecified; E87.5 Hyperkalemia; L97.529 Non-pressure chronic ulcer of other part of left foot with unspecified severity; E11.42 Type 2 diabetes mellitus with diabetic polyneuropathy; E79.0 Hyperuricemia without signs of inflammatory arthritis and tophaceous disease; E66.9 Obesity, unspecified; F32.9 Major depressive disorder, single episode, unspecified; I25.10 Atherosclerotic heart disease of native coronary artery without angina pectoris; I44.1 Atrioventricular block, second degree; I48.91 Unspecified atrial fibrillation; I83.893 Varicose veins of bilateral lower extremities with other complications; J44.9 Chronic obstructive pulmonary disease, unspecified; K62.1 Rectal polyp; M54.9 Dorsalgia, unspecified; R53.81 Other malaise; B96.6 Bacteroides fragilis [B. fragilis] as the cause of diseases classified elsewhere; Z68.36 Body mass index [BMI] 36.0-36.9, adult; Z98.0 Intestinal bypass and anastomosis status; Z86.711 Personal history of pulmonary embolism; Z95.828 Presence of other vascular implants and grafts; Z86.718 Personal history of other venous thrombosis and embolism; Z99.2 Dependence on renal dialysis; Z79.4 Long term (current) use of insulin; Z79.01 Long term (current) use of anticoagulants; Z79.02 Long term (current) use of antithrombotics/antiplatelets
CPT/HCPCS: 36415; 36430; 36558; 36600; 71045; 71046; 73620; 74018; 74176; 80048; 80053; 80061; 80202; 82270; 82378; 82550; 82553; 82803; 82962; 83036; 83540; 83605; 83735; 84100; 84132; 84484; 85014; 85018; 85025; 85610; 85730; 86850; 86870; 86900; 86901; 86920; 87040-91; 87070; 87075; 87081; 87102; 87340; 88305; 88307; 88311; 90935; 93005; 93306; 93312; 93320; 93325; 93458; 94002; 94003; 94640; 94664; 94770; 96374; 96375; 97110; 97116; 97163; 97164; 97530; 99285-25